=== PATIENT | female | born 1955 | race Caucasian/White ===

== ENCOUNTER 2017-10-08 20:22 | Emergency (ER) | payer SELFPAY ==
[2017-10-08] MEDS ORDERED: MORPHINE 4 MG/ML SYR ONE (21:00)
[2017-10-08] MEDS ORDERED: ONDANSETRON 4 MG/2 ML VIAL ONE (21:00)
[2017-10-08 21:15] LABS: Absolute Monocytes 0.5 K/uL (0.1-1.3); Basophils % 0.6 % (0-1.3); Eosinophils % 2.3 % (0-4.4); Hematocrit 43.1 % (36.0-45.0); Lymphocytes % 26.1 % (15.3-44.8); MCV 86.9 fL (80-100); MPV 8.1 fL (7.6-11.3); Monocytes % 6.9 % (3.3-12.3); RBC Red Blood Cell Count 4.96 M/uL (3.86-4.86)
[2017-10-08 21:18] LABS: Urine Bacteria <20 /HPF (<20); Urine Culture Reflex Order REFLEXED; Urine RBC <5 /HPF (NONE SEEN)
[2017-10-08 21:24] LABS: Albumin 3.6 g/dL (3.4-5.0); Bilirubin Direct 0.1 mg/dL (0-0.2); Bilirubin Total 0.6 mg/dL (0.2-1.0); Potassium 3.4 mmol/L (3.5-5.1)
[2017-10-08 21:25] LABS: Urine Blood TRACE (NEG); Urine Glucose NEGATIVE (NEG); Urine Protein NEGATIVE (NEG); Urine pH 6.5 (5.0-7.0)
--- NOTE | 2017-10-08 22:03 | RAD REPORT ---
EXAM DESCRIPTION: CT - Abdomen Pelvis W Contrast - 10/08/2017 9:36 pm CLINICAL HISTORY: Abdominal pain, epigastric pain COMPARISON: None. TECHNIQUE: Biphasic, helical CT imaging of the abdomen and pelvis was performed following 100 ml non -ionic IV contrast. Oral contrast was given. All CT scans are performed using dose optimization technique as appropriate and may include automated exposure control or mA/KV adjustment according to patient size. FINDINGS: No suspicious findings in the lung bases. The liver, spleen, and pancreas show no suspicious findings. Gallbladder and biliary tree are also wi thout suspicious finding. Symmetric renal function is seen with no hydronephrosis or suspicious renal mass. No pyelonephritis o r acute renal parenchymal process. Urinary bladder is contracted limiting assessment. No significant uterine or ovarian finding. Ott of the distal esophagus are mildly prominent. A mild esophagitis would be possible. CT imaging has limited sensitivity for esophageal findings. No gastric dilatation. Ott of the antrum are mildl y prominent. Again, CT sensitivity is limited. No acute small bowel finding. Moderate sigmoid diverti culosis is present without diverticulitis. Mass assessment is limited. No appendicitis. Liver, spleen and pancreas show no acute findings. Small hepatic cysts are present. No free air, lexus e fluid or inflammatory stranding. No hernia, mass or bulky lymphadenopathy. No adrenal abnormality. No suspicious bony findings. IMPRESSION: Ott of the distal esophagus and ott of the gastric antrum are mildly prominent. CT s ensitivity is limited. A mild antritis or esophagitis would be possible and can be correlated with cl inical findings. GI tract is otherwise without acute finding. No acute finding. Gallbladder and biliary tree within normal limits.
--- NOTE | 2017-10-08 22:17 | ER ---
Nurse's Notes [facility] Name: Chantell Castillo Age: 62 yrs Sex: Female : 1955 Arrival Date: 10/08/2017 Time: 20:23 Bed 23 Private MD: Diagnosis: Esophagitis;Antritis Presentation: 10/08 20:40 Presenting complaint: Patient states: she is having epigastric pain x 3 days she bb started vomiting today and she is nauseated. Transition of care: patient was not received from another setting of care. Onset of symptoms was October 06, 2017. Risk Assessment: Do you want to hurt yourself or someone else? Patient reports no desire to harm self or others. Initial Sepsis Screen: Does the patient meet any 2 criteria? No. Patient's initial sepsis screen is negative. Does the patient have a suspected source of infection? No. Patient's initial sepsis screen is negative. Care prior to arrival: None. 20:40 Method Of Arrival: Ambulatory bb 20:40 Acuity: WES 3 bb Triage Assessment: 21:08 General: Appears in no apparent distress. uncomfortable, well groomed, well developed, kr2 well nourished, Behavior is calm, cooperative, appropriate for age. Pain: Complains of pain in epigastric area, right upper quadrant and left upper quadrant Pain currently is 8 out of 10 on a pain scale. Quality of pain is described as aching, crampy, sharp, Is continuous, Alleviated by nothing. EENT: Oral mucosa is moist. Neuro: Level of Consciousness is awake, alert, obeys commands, Oriented to person, place, time, situation. Cardiovascular: Capillary refill < 3 seconds in bilateral fingers Patient's skin is warm and dry. Respiratory: Airway is patent Respiratory effort is even, unlabored, Respiratory pattern is regular, symmetrical. GI: Abdomen is round non-distended, Reports nausea, vomiting. : Urine is cloudy. Derm: Skin is intact, is healthy with good turgor, Skin is pink, warm \T\ dry. Musculoskeletal: Circulation, motion, and sensation intact. Historical: - Allergies: 20:42 NKDA; bb - Home Meds: 20:42 lisinopril 40 mg Oral tab 1 tab twice a day [Active]; bb - PMHx: 20:47 hypertension; bb - PSHx: 20:47 Tubal ligation; Tonsillectomy; bb - Immunization history:: Adult Immunizations up to date. - Social history:: Smoking status: Patient uses tobacco products, smokes one-half pack cigarettes per day, Patient/guardian denies using alcohol, street drugs. - Ebola Screening: : No symptoms or risks identified at this time. Screenin:08 Abuse screen: Denies threats or abuse. Denies injuries from another. Nutritional kr2 screening: No deficits noted. Tuberculosis screening: No symptoms or risk factors identified. Fall Risk None identified. Assessment: 21:10 General: See triage assessment. kr2 21:59 Reassessment: Patient appears in no apparent distress at this time. Patient and/or kr2 family updated on plan of care and expected duration. Pain level reassessed. Patient is alert, oriented x 3, equal unlabored respirations, skin warm/dry/pink. Patient states symptoms have improved. 22:38 Reassessment: Patient appears in no apparent distress at this time. Patient and/or kr2 family updated on plan of care and expected duration. Pain level reassessed. Patient is alert, oriented x 3, equal unlabored respirations, skin warm/dry/pink. Patient states feeling better. Vital Signs: 20:48 BP 192 / 115; Pulse 75; Resp 18 S; Temp 98.6(O); Pulse Ox 98% on R/A; Weight 83.91 kg bb (R); Height 5 ft. 3 in. (160.02 cm) (R); Pain 8/10; 21:06 BP 177 / 108; Pulse 74; Resp 19; Pulse Ox 97% on R/A; kr2 21:59 BP 176 / 98; Pulse 65; Resp 17; Pulse Ox 97% ; kr2 20:48 Body Mass Index 32.77 (83.91 kg, 160.02 cm) ED Course: 20:23 Patient arrived in ED. ds1 20:29 Daniel Sanon NP is PHCP. pm1 20:29 Goldy Benitez MD is Attending Physician. pm1 20:30 Annetta Starkey, KURT is Primary Nurse. kr2 20:41 Triage completed. bb 20:48 Arm band placed on Patient placed in an exam room, on a stretcher, on pulse oximetry. bb Family accompanied patient. 20:50 Patient has correct armband on for positive identification. Bed in low position. Call kr2 light in reach. Side rails up X 1. Adult w/ patient. Pulse ox on. NIBP on. Door closed. Warm blanket given. Head of bed elevated. 20:50 Inserted saline lock: 20 gauge in right antecubital area, using aseptic technique. kr2 Blood collected. 21:05 Urine collected: clean catch specimen, cloudy. kr2 21:35 CT Abd/Pelvis - W/Contrast: IV contrast only In Process Unspecified. EDMS 22:16 Nicol Solomon MD is Referral Physician. pm1 22:39 No provider procedures requiring assistance completed. IV discontinued, intact, kr2 bleeding controlled, No redness/swelling at site. Pressure dressing applied. Administered Medications: 21:00 Drug: morphine 4 mg Route: IVP; Site: right antecubital; kr2 21:30 Follow up: Response: No adverse reaction; Pain is decreased kr2 21:00 Drug: Zofran 4 mg Route: IVP; Site: right antecubital; kr2 22:36 Follow up: Response: No adverse reaction kr2 22:20 Drug: GI Cocktail without - (Maalox Suspension 30 ml, Lidocaine Liquid 2 % 15 kr2 ml) Route: PO; 22:37 Follow up: Response: No adverse reaction kr2 Outcome: 22:17 Discharge ordered by . pm1 22:39 Discharged to home ambulatory, with family. kr2 22:39 Condition: good 22:39 Discharge instructions given to patient, family, Instructed on discharge instructions, follow up and referral plans. Demonstrated understanding of instructions, follow-up care. 22:39 Patient left the ED. kr2 Addendum: 10/12/2017 16:42 Addendum: Culture Results: Positive urine culture. No further action required. Other: s s No Urinary S/S. Okay per BUSHRA Lieberman. Signatures: Dispatcher [employer] [facility] Jami Reece dsVenus Rdz RN RN Marie Gomez RN RN ss Marinas, Patrick, ESTEFANY LONG DISTANCE OPERATOR pm1 Annetta Starkey RN RN kr2 Corrections: (The following items were deleted from the chart) 10/08 20:41 20:37 Presenting complaint: sofia black
--- NOTE | 2017-10-08 22:17 | EDPHYS ---
Physician Documentation [facility] Name: Chantell Castillo Age: 62 yrs Sex: Female : 1955 Arrival Date: 10/08/2017 Time: 20:23 Bed 23 Private MD: ED Physician Goldy Benitez HPI: 10/08 21:27 This 62 yrs old Female presents to ER via Ambulatory with complaints of Upper pm1 Abd Pain. 21:27 The patient presents with abdominal pain in the left upper quadrant. Onset: The pm1 symptoms/episode began/occurred 3 day(s) ago. The symptoms do not radiate. Associated signs and symptoms: Pertinent positives: nausea and vomiting, Pertinent negatives: chest pain, diarrhea, dysuria, fever, shortness of breath. The symptoms are described as achy, constant. Modifying factors: The symptoms are alleviated by nothing, the symptoms are aggravated by nothing. Severity of pain: in the emergency department the pain is actually worse. The patient has experienced similar episodes in the past, a few times. The patient has not recently seen a physician, and does not have an established primary care provider. Historical: - Allergies: 20:42 NKDA; bb - Home Meds: 20:42 lisinopril 40 mg Oral tab 1 tab twice a day [Active]; bb - PMHx: 20:47 hypertension; bb - PSHx: 20:47 Tubal ligation; Tonsillectomy; bb - Immunization history:: Adult Immunizations up to date. - Social history:: Smoking status: Patient uses tobacco products, smokes one-half pack cigarettes per day, Patient/guardian denies using alcohol, street drugs. - Ebola Screening: : No symptoms or risks identified at this time. ROS: 21:57 Constitutional: Negative for fever, chills, and weight loss, Eyes: Negative for injury, pm1 pain, redness, and discharge, ENT: Negative for injury, pain, and discharge, Neck: Negative for injury, pain, and swelling, Cardiovascular: Negative for chest pain, palpitations, and edema, Respiratory: Negative for shortness of breath, cough, wheezing, and pleuritic chest pain. 21:57 Back: Negative for injury and pain, : Negative for injury, bleeding, discharge, and swelling, MS/Extremity: Negative for injury and deformity, Skin: Negative for injury, rash, and discoloration, Neuro: Negative for headache, weakness, numbness, tingling, and seizure. 21:57 Abdomen/GI: Positive for abdominal pain, nausea and vomiting, Negative for diarrhea, constipation. Exam: 21:57 Constitutional: This is a well developed, well nourished patient who is awake, alert, pm1 and in no acute distress. Head/Face: Normocephalic, atraumatic. Eyes: Pupils equal round and reactive to light, extra-ocular motions intact. Lids and lashes normal. Conjunctiva and sclera are non-icteric and not injected. Cornea within normal limits. Periorbital areas with no swelling, redness, or edema. ENT: Nares patent. No nasal discharge, no septal abnormalities noted. Tympanic membranes are normal and external auditory canals are clear. Oropharynx with no redness, swelling, or masses, exudates, or evidence of obstruction, uvula midline. Mucous membranes moist. Neck: Trachea midline, no thyromegaly or masses palpated, and no cervical lymphadenopathy. Supple, full range of motion without nuchal rigidity, or vertebral point tenderness. No Meningismus. Chest/axilla: Normal chest wall appearance and motion. Nontender with no deformity. No lesions are appreciated. Cardiovascular: Regular rate and rhythm with a normal S1 and S2. No gallops, murmurs, or rubs. Normal PMI, no JVD. No pulse deficits. Respiratory: Lungs have equal breath sounds bilaterally, clear to auscultation and percussion. No rales, rhonchi or wheezes noted. No increased work of breathing, no retractions or nasal flaring. 21:57 Back: No spinal tenderness. No costovertebral tenderness. Full range of motion. Skin: Warm, dry with normal turgor. Normal color with no rashes, no lesions, and no evidence of cellulitis. MS/ Extremity: Pulses equal, no cyanosis. Neurovascular intact. Full, normal range of motion. 21:57 Abdomen/GI: Inspection: abdomen appears normal, Bowel sounds: normal, Palpation: soft, mild abdominal tenderness, in the epigastric area, mass, is not appreciated, rebound tenderness, is not appreciated. 21:57 Neuro: Orientation: is normal, Motor: is normal, moves all fours. Vital Signs: 20:48 BP 192 / 115; Pulse 75; Resp 18 S; Temp 98.6(O); Pulse Ox 98% on R/A; Weight 83.91 kg bb (R); Height 5 ft. 3 in. (160.02 cm) (R); Pain 8/10; 21:06 BP 177 / 108; Pulse 74; Resp 19; Pulse Ox 97% on R/A; kr2 21:59 BP 176 / 98; Pulse 65; Resp 17; Pulse Ox 97% ; kr2 20:48 Body Mass Index 32.77 (83.91 kg, 160.02 cm) bb MDM: 20:31 Patient medically screened. pm1 22:14 Data reviewed: vital signs. Data interpreted: Pulse oximetry: on room air is 97 %. pm1 Interpretation: normal. Counseling: I had a detailed discussion with the patient and/or guardian regarding: the historical points, exam findings, and any diagnostic results supporting the discharge/admit diagnosis, lab results, radiology results, the need for outpatient follow up, for definitive care, a economist research assistant, to return to the emergency department if symptoms worsen or persist or if there are any questions or concerns that arise at home. 10/08 20:39 Order name: Basic Metabolic Panel; Complete Time: 21:48 pm1 10/08 20:39 Order name: CBC with Diff; Complete Time: 21:21 pm1 10/08 20:39 Order name: Creatinine for Radiology; Complete Time: 21:48 pm1 10/08 20:39 Order name: Hepatic Function; Complete Time: 21:48 pm1 10/08 20:39 Order name: Lipase; Complete Time: 21:48 pm1 10/08 20:39 Order name: Urine Microscopic Only; Complete Time: 21:21 pm1 10/08 20:39 Order name: Urine Test (obtain specimen); Complete Time: 21:06 pm1 10/08 20:39 Order name: CT Abd/Pelvis - W/Contrast: IV contrast only; Complete Time: 22:04 pm1 10/08 21:19 Order name: Urine Culture [facility] 10/08 21:19 Order name: Urine Dipstick--Ancillary (enter results); Complete Time: 21:48 mw2 10/08 21:19 Order name: Urine --Ancillary (enter results); Complete Time: 21:48 2 10/08 20:39 Order name: IV Saline Lock; Complete Time: 21:06 pm1 10/08 20:39 Order name: Labs collected and sent; Complete Time: 21:06 pm1 10/08 20:39 Order name: Urine Dipstick-Ancillary (obtain specimen); Complete Time: 21:06 pm1 08 20:39 Order name: NPO; Complete Time: 20:43 pm1 Administered Medications: 21:00 Drug: morphine 4 mg Route: IVP; Site: right antecubital; kr2 21:30 Follow up: Response: No adverse reaction; Pain is decreased kr2 21:00 Drug: Zofran 4 mg Route: IVP; Site: right antecubital; kr2 22:36 Follow up: Response: No adverse reaction kr2 22:20 Drug: GI Cocktail without - (Maalox Suspension 30 ml, Lidocaine Liquid 2 % 15 kr2 ml) Route: PO; 22:37 Follow up: Response: No adverse reaction kr2 Disposition: 10/09 02:10 Co-signature as Attending Physician, Goldy Benitez MD. rn Disposition: 10/08/17 22:17 Discharged to Home. Impression: Esophagitis, Antritis. - Condition is Stable. - Discharge Instructions: Esophagitis. - Medication Reconciliation Form, Thank You Letter, Antibiotic Education, Prescription Opioid Use form. - Follow up: Emergency Department; When: As needed; Reason: Worsening of condition. Follow up: Nicol Solomon MD; When: 2 - 3 days; Reason: Recheck today's complaints, Continuance of care, Re-evaluation by your physician. - Problem is new. - Symptoms have improved. Signatures: Dispatcher [employer] EDMS Venus Shell RN RN bb Nieto, Roman, MD MD rn Marinas, Patrick, NP [employer]IL HAND[employer] pm1 Annetta Starkey RN RN kr2 Corrections: (The following items were deleted from the chart) 10/08 22:39 22:17 10/08/2017 22:17 Discharged to Home. Impression: Esophagitis; Antritis. Condition kr2 is Stable. Forms are Medication Reconciliation Form, Thank You Letter, Antibiotic Education, Prescription Opioid Use. Follow up: Emergency Department; When: As needed; Reason: Worsening of condition. Follow up: Nicol Solomon; When: 2 - 3 days; Reason: Recheck today's complaints, Continuance of care, Re-evaluation by your physician. Problem is new. Symptoms have improved. pm1
[2017-10-08] MEDS ORDERED: MAGNE/ALUM HYDROXD 30 ML UCUP ONE (22:32)
[2017-10-08] MEDS ORDERED: LIDOCAINE VISCOUS 2% SOLN 15 ML UDC ONE (22:32)
[2017-10-08 22:46] VITALS: TEMP 98.6
[2017-10-08 22:47] VITALS: O2SAT 97
[2017-10-08 22:48] VITALS: BP 176/98
== END 2017-10-08 22:39 | disposition home or self-care (01) ==
LOC: ER 20:22
DX: K20.9 Esophagitis, unspecified (principal); K29.60 Other gastritis without bleeding; I10 Essential (primary) hypertension; F17.210 Nicotine dependence, cigarettes, uncomplicated
CPT/HCPCS: 36415; 74177; 80048; 80076; 81003; 81015; 81025; 83690; 85025; 87077; 87086; 87088; 87186; 96374; 96375; 99284; J2405; Q9967

== ENCOUNTER 2019-11-09 16:10 | Emergency (ER) | payer SELFPAY ==
[2019-11-09] MEDS ORDERED: MORPHINE 2 MG/ML SYR ONE (17:04)
[2019-11-09] MEDS ORDERED: FAMOTIDINE 20 MG/2 ML VIAL IV ONE (17:04)
[2019-11-09] MEDS ORDERED: NA CHLORIDE 0.9% 500 ML ONE (17:04)
[2019-11-09] MEDS ORDERED: ONDANSETRON 4 MG/2 ML VIAL ONE (17:04)
[2019-11-09 17:11] LABS: Absolute Lymphocytes (CBC) 1.7 K/uL (0.7-4.9); Basophils % 0.8 % (0-1.3); Lymphocytes % 19.2 % (15.3-44.8); RBC Red Blood Cell Count 5.22 M/uL (3.86-4.86)
[2019-11-09 17:33] LABS: Albumin 3.4 g/dL (3.4-5.0); Bilirubin Direct 0.1 mg/dL (0-0.2); Bilirubin Total 0.4 mg/dL (0.2-1.0); Potassium 3.2 mmol/L (3.5-5.1); Protein, Total 6.9 g/dL (6.4-8.2)
--- NOTE | 2019-11-09 18:25 | RAD REPORT ---
EXAM DESCRIPTION: CT - Abdomen Pelvis W Contrast - 11/09/2019 6:10 pm CLINICAL HISTORY: upper abdomen pain COMPARISON: Abdomen Pelvis W Contrast dated 10/08/2017; Abdomen Exam Limited dated 11/09/2019 TECHNIQUE: Biphasic, helical CT imaging of the abdomen and pelvis was performed following 100 ml non -ionic IV contrast. No oral contrast administered. All CT scans are performed using dose optimization technique as appropriate and may include automated exposure control or mA/KV adjustment according to patient size. FINDINGS: No suspicious findings in the lung bases. The liver, spleen, and pancreas show no suspicious findings. Multiple small cysts are present in the liver similar to comparison. No gallbladder or biliary tree abnormality seen. Gallstones can be occul t. Symmetric renal function is seen with no hydronephrosis or suspicious renal mass. No pyelonephritis o r acute parenchymal process. No bladder abnormalities. No adrenal abnormalities. Uterus and ovaries s how no suspicious findings. Ott of the distal esophagus and gastric antrum are less prominent than seen on the 2018 study. No f inding that would suggest the developing mass at this site. No lymphadenopathy in this region. Remain connie the stomach shows no suspicious finding. No small bowel abnormality. Moderately large stool volum e present scattered in the colon. Patient has very pronounced diverticulosis in the sigmoid colon. No acute diverticulitis. Mucosal level inflammatory changes can be occult on CT imaging. No free air, free fluid or inflammatory stranding. No hernia, mass or bulky lymphadenopathy. Disc and bony degenerative changes are present. No acute lumbar or lower thoracic abnormality. No acu te vascular finding. IMPRESSION: Contrast enhanced CT abdomen and pelvis showing no emergent finding. Patient has prominent diverticulosis of the sigmoid colon. No diverticulitis seen. Mucosal level infl ammatory changes can be occult on CT imaging. The ott of the distal esophagus and gastric antrum at the GE junction do not appear as prominent as seen in 2018. No findings suggesting a developing mass at this location.
[2019-11-09] MEDS ORDERED: HYDRALAZINE HCL 20 MG/ML VIAL ONE (18:37)
[2019-11-09] MEDS ORDERED: lisinopriL 20 MG TAB ONE (18:37)
--- NOTE | 2019-11-09 19:19 | ER ---
Nurse's Notes [facility] Name: Chantell Castillo Age: 64 yrs Sex: Female : 1955 Arrival Date: 11/09/2019 Time: 16:13 Bed 19 Private MD: Diagnosis: Epigastric pain;Nausea;Hypertensive heart disease Presentation: 11/08 16:18 Chief complaint: Patient states: Upper abdominal pain with nausea since last night. ll1 Pain radiates through to back. No fever. Coronavirus screen: Client denies travel out of the [place] in the last 14 days. At this time, the client does not indicate any symptoms associated with coronavirus-19. Ebola Screen: Patient denies travel to an Ebola-affected area in the 21 days before illness onset. Initial Sepsis Screen: Does the patient meet any 2 criteria? No. Patient's initial sepsis screen is negative. Risk Assessment: Do you want to hurt yourself or someone else? Patient reports no desire to harm self or others. Onset of symptoms was November 08, 2019. 16:18 Method Of Arrival: Ambulatory ll1 16:18 Acuity: WES 2 ll1 Triage Assessment: 16:25 General: Appears in no apparent distress. uncomfortable, obese, Behavior is bp cooperative, appropriate for age, anxious. Pain: Complains of pain in abdomen. EENT: No deficits noted. Neuro: No deficits noted. Cardiovascular: No deficits noted. Respiratory: No deficits noted. GI: Abdomen is non-distended, Reports upper abdominal pain. : No signs and/or symptoms were reported regarding the genitourinary system. Derm: No deficits noted. Musculoskeletal: No deficits noted. Historical: - Allergies: 16:18 NKDA; ll1 - PMHx: 16:18 Hypertension; ll1 - PSHx: 16:18 Tubal ligation; Tonsillectomy; ll1 - Immunization history:: Flu vaccine is up to date. - Social history:: Smoking status: Patient reports the use of cigarette tobacco products, smokes one-half pack cigarettes per day, Patient/guardian denies using alcohol, street drugs. Screenin:07 Abuse screen: Denies threats or abuse. Denies injuries from another. Nutritional bp screening: No deficits noted. Tuberculosis screening: No symptoms or risk factors identified. Fall Risk None identified. Assessment: 16:30 General: SEE TRIAGE NOTE. bp 17:42 Reassessment: U/S AT B/S. bp 18:08 Reassessment: PT TO CT. PT REMAINS GROSSLY HYPERTENSIVE, PROVIDER AWARE. bp 18:30 Reassessment: PT RETURNED FROM CT. bp 19:40 Reassessment: Patient appears in no apparent distress at this time. Patient is alert, rr5 oriented x 3, equal unlabored respirations, skin warm/dry/pink. discharge instruction given and explained without complaints made. Vital Signs: 16:18 BP 206 / 137; Pulse 82; Resp 18; Temp 98.1; Pulse Ox 100% ; Pain 8/10; ll1 17:00 BP 220 / 110; Pulse 78; Resp 16; Pulse Ox 100% ; bp 17:42 BP 195 / 116; Pulse 71; Resp 17; Pulse Ox 100% ; bp 18:00 BP 231 / 118; Pulse 69; Resp 17; Pulse Ox 100% ; bp 18:30 BP 162 / 88; Pulse 72; Resp 16; Pulse Ox 100% ; bp 19:38 BP 162 / 85; Pulse 70; Resp 17; Pulse Ox 99% ; rr5 ED Course: 16:13 Patient arrived in ED. ds1 16:18 Arm band placed on. ll1 16:20 Triage completed. ll1 16:24 Eddie Mtz, KURT is Primary Nurse. bp 16:25 Wilfrido Crocker PA is PHCP. cp 16:25 Giovanni Gallegos MD is Attending Physician. cp 17:00 Inserted saline lock: 20 gauge in right forearm, using aseptic technique. Blood bp collected. 17:07 Patient has correct armband on for positive identification. Bed in low position. Call bp light in reach. Side rails up X2. 18:10 CT Abd/Pelvis - IV Contrast Only In Process Unspecified. EDMS 19:04 US Abdomen Limited: RUQ/epigastric area In Process Unspecified. EDMS 19:38 No provider procedures requiring assistance completed. IV discontinued, intact, rr5 bleeding controlled, No redness/swelling at site. Pressure dressing applied. Administered Medications: 17:00 Drug: Zofran (Ondansetron) 4 mg Route: IVP; Site: right forearm; bp 18:33 Follow up: Response: No adverse reaction bp 17:00 Drug: Pepcid 20 mg Route: IVP; Site: right forearm; bp 18:33 Follow up: Response: No adverse reaction bp 17:00 Drug: morphine 2 mg Route: IVP; Site: right forearm; bp 18:33 Follow up: Response: Pain is decreased bp 17:00 Drug: NS 0.9% 500 ml Route: IV; Rate: bolus; Site: right forearm; bp 17:00 Drug: NS 0.9% 500 ml Route: IV; Rate: 100 ml/hr; Site: right forearm; bp 18:30 Drug: Lisinopril 20 mg Route: PO; bp 18:33 Follow up: Response: No adverse reaction bp 18:30 Drug: hydrALAZINE 10 mg Route: IV; Rate: calculated rate; Site: right forearm; bp 19:39 Follow up: Response: Blood pressure is lowered; IV Status: Completed infusion rr5 19:20 Drug: Potassium Effervescent Tablet 50 mEq Route: PO; rr5 19:39 Follow up: Response: No adverse reaction rr5 19:20 Drug: Tylenol 1000 mg Route: PO; rr5 19:39 Follow up: Response: No adverse reaction rr5 Outcome: 19:18 Discharge ordered by . cp 19:38 Discharged to home ambulatory. rr5 19:38 Condition: stable 19:38 Discharge instructions given to patient, Instructed on discharge instructions, follow up and referral plans. medication usage, Demonstrated understanding of instructions, follow-up care, medications, Prescriptions given X 2. 19:41 Patient left the ED. rr5 Signatures: Dispatcher [employer] [facility] ReeceJami dsWilfrido Crouch PA PA cp Eddie Mtz RN RN bp Ashu Spangler RN RN rr5 Ruben Stallworth RN RN ll1 Corrections: (The following items were deleted from the chart) 16:22 16:18 Acuity: WES 3 ll1 ll1
--- NOTE | 2019-11-09 19:19 | EDPHYS ---
Physician Documentation [facility] Name: Chantell Castillo Age: 64 yrs Sex: Female : 1955 Arrival Date: 11/09/2019 Time: 16:13 Bed 19 Private MD: ED Physician Giovanni Gallegos HPI: 11/08 16:35 This 64 yrs old Female presents to ER via Ambulatory with complaints of Upper cp Abd Pain. 16:35 The patient presents with abdominal pain in the epigastric area. cp 16:35 Onset: The symptoms/episode began/occurred last night. The symptoms radiate to cp Associated signs and symptoms: Pertinent positives: nausea, Pertinent negatives: chest pain, constipation, diarrhea, dysuria, fever, vomiting. The symptoms are described as constricting. Modifying factors: The symptoms are alleviated by nothing. Severity of pain: in the emergency department the pain is unchanged despite home interventions. Historical: - Allergies: 16:18 NKDA; ll1 - PMHx: 16:18 Hypertension; ll1 - PSHx: 16:18 Tubal ligation; Tonsillectomy; ll1 - Immunization history:: Flu vaccine is up to date. - Social history:: Smoking status: Patient reports the use of cigarette tobacco products, smokes one-half pack cigarettes per day, Patient/guardian denies using alcohol, street drugs. ROS: 16:40 Constitutional: Negative for body aches, chills, fever, poor PO intake. cp 16:40 Eyes: Negative for injury, pain, redness, and discharge. cp 16:40 ENT: Negative for ear pain, sore throat, difficulty swallowing, difficulty handling secretions. 16:40 Cardiovascular: Negative for chest pain. 16:40 Respiratory: Negative for cough, shortness of breath, wheezing. 16:40 Abdomen/GI: Positive for abdominal pain, nausea, Negative for vomiting, diarrhea, constipation. 16:40 Back: Positive for radiated pain. 16:40 : Negative for urinary symptoms. 16:40 Neuro: Negative for altered mental status, headache, weakness. 16:40 All other systems are negative. Exam: 16:45 Constitutional: The patient appears in no acute distress, alert, awake, cp non-diaphoretic, non-toxic, well developed, well nourished. 16:45 Head/Face: Normocephalic, atraumatic. cp 16:45 Eyes: Periorbital structures: appear normal, Conjunctiva: normal, no exudate, no injection, Lids and lashes: appear normal, bilaterally. 16:45 ENT: External ear(s): are unremarkable, Nose: is normal, Posterior pharynx: Airway: no evidence of obstruction, patent. 16:45 Chest/axilla: Inspection: normal, Palpation: is normal, no crepitus, no tenderness. 16:45 Cardiovascular: Rate: normal, Rhythm: regular. 16:45 Respiratory: the patient does not display signs of respiratory distress, Respirations: normal, no use of accessory muscles, no retractions, labored breathing, is not present, Breath sounds: are clear throughout, no decreased breath sounds, no stridor, no wheezing. 16:45 Abdomen/GI: Inspection: abdomen appears normal, Bowel sounds: active, all quadrants, Palpation: soft, in all quadrants, moderate abdominal tenderness, in the epigastric area, rebound tenderness, is not appreciated, involuntary guarding, is not appreciated. 16:45 Back: pain, that is mild, of the left subscapular area, right subscapular area and mid back area, ROM is normal. 16:45 Skin: no rash present. Vital Signs: 16:18 BP 206 / 137; Pulse 82; Resp 18; Temp 98.1; Pulse Ox 100% ; Pain 8/10; ll1 17:00 BP 220 / 110; Pulse 78; Resp 16; Pulse Ox 100% ; bp 17:42 BP 195 / 116; Pulse 71; Resp 17; Pulse Ox 100% ; bp 18:00 BP 231 / 118; Pulse 69; Resp 17; Pulse Ox 100% ; bp 18:30 BP 162 / 88; Pulse 72; Resp 16; Pulse Ox 100% ; bp 19:38 BP 162 / 85; Pulse 70; Resp 17; Pulse Ox 99% ; rr5 MDM: 16:27 Patient medically screened. cp 19:14 ED course: tech reports no acute findings noted on RUQ ultrasound. 11/08 16:32 Order name: Basic Metabolic Panel; Complete Time: 17:53 11/08 17:53 Interpretation: Normal except: K 3.2; CL 108; GFR 83. 11/08 16:32 Order name: CBC with Diff; Complete Time: 17:53 11/08 17:53 Interpretation: Normal except: RBC 5.22; HGB 15.4. cp 11/08 16:32 Order name: Hepatic Function; Complete Time: 17:53 cp 11/08 16:32 Order name: Lipase; Complete Time: 17:53 cp 11/08 16:32 Order name: US Abdomen Limited: RUQ/epigastric area cp 11/08 17:54 Order name: CT Abd/Pelvis - IV Contrast Only; Complete Time: 18:37 cp 11/08 16:32 Order name: IV Saline Lock; Complete Time: 17:06 cp 11/08 16:32 Order name: Labs collected and sent; Complete Time: 17:06 cp 11/08 16:32 Order name: NPO; Complete Time: 17:06 cp Administered Medications: 17:00 Drug: Zofran (Ondansetron) 4 mg Route: IVP; Site: right forearm; bp 18:33 Follow up: Response: No adverse reaction bp 17:00 Drug: Pepcid 20 mg Route: IVP; Site: right forearm; bp 18:33 Follow up: Response: No adverse reaction bp 17:00 Drug: morphine 2 mg Route: IVP; Site: right forearm; bp 18:33 Follow up: Response: Pain is decreased bp 17:00 Drug: NS 0.9% 500 ml Route: IV; Rate: bolus; Site: right forearm; bp 17:00 Drug: NS 0.9% 500 ml Route: IV; Rate: 100 ml/hr; Site: right forearm; bp 18:30 Drug: Lisinopril 20 mg Route: PO; bp 18:33 Follow up: Response: No adverse reaction bp 18:30 Drug: hydrALAZINE 10 mg Route: IV; Rate: calculated rate; Site: right forearm; bp 19:39 Follow up: Response: Blood pressure is lowered; IV Status: Completed infusion rr5 19:20 Drug: Potassium Effervescent Tablet 50 mEq Route: PO; rr5 19:39 Follow up: Response: No adverse reaction rr5 19:20 Drug: Tylenol 1000 mg Route: PO; rr5 19:39 Follow up: Response: No adverse reaction rr5 Disposition: 11/09 14:26 Co-signature as Attending Physician, Giovanni Gallegos MD I agree with the assessment and kdr plan of care. Disposition: 09/03/20 19:18 Discharged to Home. Impression: Epigastric pain, Nausea, Hypertensive heart disease. - Condition is Stable. - Discharge Instructions: Gastritis, Adult, Hypertension, Managing Your Hypertension. - Prescriptions for Protonix 40 mg Oral Tablet - take 1 tablet by ORAL route once daily; 30 tablet. Zofran 4 mg Oral Tablet - take 1 tablet by ORAL route every 12 hours As needed; 20 tablet. Lisinopril 20 mg Oral Tablet - take 1 tablet by ORAL route once daily; 30 tablet. - Medication Reconciliation Form, Thank You Letter, Antibiotic Education, Prescription Opioid Use form. - Follow up: Private Physician; When: 2 - 3 days; Reason: Recheck today's complaints. - Problem is new. - Symptoms have improved. Signatures: Dispatcher [employer] EDMS Giovanni Gallegos MD MD [facility] Wilfrido Crocker PA PA cp Peltier, Brian, RN RN bp Ashu Spangler RN RN rr5 Ruben Stallworth RN RN ll1 Corrections: (The following items were deleted from the chart) 11/08 19:41 19:18 11/09/2019 19:18 Discharged to Home. Impression: Epigastric pain; Nausea; rr5 Hypertensive heart disease. Condition is Stable. Forms are Medication Reconciliation Form, Thank You Letter, Antibiotic Education, Prescription Opioid Use. Follow up: Private Physician; When: 2 - 3 days; Reason: Recheck today's complaints. Problem is new. Symptoms have improved. cp
[2019-11-09] MEDS ORDERED: ACETAMINOPHEN 500 MG TAB ONE (19:41)
[2019-11-09] MEDS ORDERED: POTASSIUM 25 MEQ EFFERV TAB ONE (19:41)
--- NOTE | 2019-11-09 20:44 | RAD REPORT ---
EXAM DESCRIPTION: US - Abdomen Exam Limited - 11/09/2019 7:04 pm CLINICAL HISTORY: upper abdomen pain COMPARISON: Abdomen Pelvis W Contrast dated 10/08/2017 FINDINGS: No gallstones, sludge or other abnormalities within the gallbladder lumen. There is no wal l thickening or pericholecystic fluid. No common duct stone or biliary tree dilatation identified. IMPRESSION: Normal gallbladder and biliary tree ultrasound.
[2019-11-11 10:14] VITALS: TEMP 98.1
[2019-11-11 10:20] VITALS: BP 162/85; O2SAT 99
== END 2019-11-09 19:41 | disposition home or self-care (01) ==
LOC: ER 16:10
DX: R11.0 Nausea (principal); I11.9 Hypertensive heart disease without heart failure; I10 Essential (primary) hypertension; F17.210 Nicotine dependence, cigarettes, uncomplicated
CPT/HCPCS: 36415; 74177; 76705; 80048; 80076; 83690; 85025; 96365; 96375; 99284; J0360; J2270; J2405; J7040; Q9967

== ENCOUNTER 2020-04-23 19:14 | Emergency (ER) | payer SELFPAY ==
[2020-04-23 19:56] LABS: Absolute Lymphocytes (CBC) 2.2 K/uL (0.7-4.9); Basophils % 0.6 % (0-1.3); Hematocrit 41.1 % (36.0-45.0); Lymphocytes % 21.7 % (15.3-44.8); MPV 8.3 fL (7.6-11.3); RBC Red Blood Cell Count 4.84 M/uL (3.86-4.86)
[2020-04-23 19:57] LABS: Protime INR 1.03
[2020-04-23] MEDS ORDERED: LIDOCAINE VISCOUS 2% SOLN 15 ML UDC ONE (19:59)
[2020-04-23] MEDS ORDERED: ONDANSETRON 4 MG/2 ML VIAL ONE (19:59)
[2020-04-23] MEDS ORDERED: MAGNES/ALUMIN/SIMET 30ML UCUP ONE (19:59)
[2020-04-23] MEDS ORDERED: MORPHINE 4 MG/ML SYR ONE ×2 (19:59→21:18)
[2020-04-23 20:19] LABS: ALT/SGPT 17 U/L (12-78); AST/SGOT 14 U/L (15-37); Albumin 3.4 g/dL (3.4-5.0); Alkaline Phosphatase 65 U/L (45-117); BUN Blood Urea Nitrogen 13 mg/dL (7-18); Bicarbonate 29 mmol/L (21-32); Bilirubin Direct 0.1 mg/dL (0-0.2); Bilirubin Total 0.4 mg/dL (0.2-1.0); Glucose Level 121 mg/dL (74-106); Lipase 142 U/L (73-393); Magnesium 2.2 mg/dL (1.8-2.4); NT PRO-BNP 653 pg/mL (<125); Protein, Total 7.1 g/dL (6.4-8.2); Sodium Level 143 mmol/L (136-145); Troponin (Emerg Dept Use Only) < 0.02 ng/mL (0.0-0.045)
--- NOTE | 2020-04-23 21:08 | EDPHYS ---
Physician Documentation [facility] Name: Chantell Castillo Age: 65 yrs Sex: Female : 1955 Arrival Date: 04/23/2020 Time: 19:18 Bed 8 Private MD: ED Physician Duncan Scott HPI: 04/23 19:40 This 65 yrs old Female presents to ER via EMS with complaints of Chest Pain > rn 31 y/o. 19:40 The patient or guardian reports chest pain that is located primarily in the substernal rn area. Onset: just prior to arrival. The pain does not radiate. Associated signs and symptoms: Pertinent positives: diaphoresis, Pertinent negatives: abdominal pain, lower extremity swelling, lightheadedness, palpitations, shortness of breath, syncope, vomiting. The chest pain is described as sharp. Duration: The patient or guardian reports a single episode, that is still ongoing. Modifying factors: The symptoms are alleviated by nothing. the symptoms are aggravated by nothing. Severity of pain: At its worst the pain was moderate in the emergency department the pain is unchanged. The patient has experienced a previous episode. Reports substernal chest pain, no radiation, assoc with diaphoresis, minimal improvement with aspirin and nitro, now has headache. Reports at [facility] when began. Also hx of GERD. Denies eating or ETOH prior to episode. Now slowly improving but not gone. Denies abd pain/nausea/vomiting. . Historical: - Allergies: 19:21 NKDA; em - PMHx: 19:21 Hypertension; em - PSHx: 19:21 Tubal ligation; Tonsillectomy; em - Immunization history:: Adult Immunizations up to date. - Social history:: Smoking status: Patient reports the use of cigarette tobacco products, smokes one-half pack cigarettes per day. - Family history:: not pertinent. - Hospitalizations: : No recent hospitalization is reported. ROS: 19:40 Constitutional: Negative for fever, chills, and weight loss, Eyes: Negative for injury, rn pain, redness, and discharge, Neck: Negative for injury, pain, and swelling, Cardiovascular: Negative for palpitations, and edema Respiratory: Negative for shortness of breath, wheezing, and pleuritic chest pain, Abdomen/GI: Negative for abdominal pain, nausea, vomiting, diarrhea, and constipation, Back: Negative for injury and pain, MS/Extremity: Negative for injury and deformity, Skin: Negative for injury, rash, and discoloration, Neuro: Negative for headache, weakness, numbness, tingling, and seizure. Exam: 19:40 Constitutional: This is a well developed, well nourished patient who is awake, alert, rn and in no acute distress. Head/Face: Normocephalic, atraumatic. Cardiovascular: Regular rate and rhythm. No pulse deficits. Respiratory: No increased work of breathing, no retractions or nasal flaring. Abdomen/GI: soft, non-tender Skin: Warm, dry MS/ Extremity: Pulses equal, no cyanosis. Neurovascular intact. Full, normal range of motion. Equal circumference. Neuro: Awake and alert, GCS 15, oriented to person, place, time, and situation. Cranial nerves II-XII grossly intact. Motor strength 5/5 in all extremities. Sensory grossly intact. Cerebellar exam normal. Normal gait. 20:10 ECG was reviewed by the Attending Physician. rn Vital Signs: 19:18 Pulse 62; Resp 18; Temp 97.6; Pulse Ox 98% on R/A; Weight 78.02 kg; Height 5 ft. 2 in. em (157.48 cm); Pain 9/10; 20:00 BP 151 / 99; Pulse 61; Resp 20; Pulse Ox 96% ; rr5 20:50 BP 153 / 95; Pulse 69; Resp 17; Pulse Ox 99% ; rr5 22:19 BP 165 / 88; Pulse 60; Resp 18; Pulse Ox 99% ; ea 22:54 BP 144 / 79; Pulse 61; Resp 16; Pulse Ox 97% ; ea 23:33 BP 137 / 87; Pulse 57; Resp 17; Pulse Ox 97% on 2 lpm NC; ea 04/24 00:55 BP 125 / 68; Pulse 62; Resp 16; Pulse Ox 98% 2 lpm ; ea 01:59 BP 106 / 65; Pulse 61; Resp 18; Pulse Ox 98% ; ea 03:22 BP 130 / 63; Pulse 65; Resp 16; Pulse Ox 97% on 2 lpm NC; ea 04:30 BP 116 / 81; Pulse 64; Resp 18; Temp 97.8; Pulse Ox 97% on R/A; ea 05:43 BP 125 / 65; Pulse 71; Resp 16; Pulse Ox 97% ; ea 07:30 BP 119 / 69; Pulse 67; Resp 16; Pulse Ox 97% on R/A; hb 08:12 BP 114 / 74; Pulse 60; Resp 15; Pulse Ox 100% on R/A; Pain 5/10; hb 09:00 BP 122 / 70; Pulse 55; Resp 14; Pulse Ox 96% on R/A; hb 09:30 BP 127 / 72; Pulse 56; Resp 15; Pulse Ox 97% on R/A; hb 04/23 19:18 Body Mass Index 31.46 (78.02 kg, 157.48 cm) em MDM: 04/23 19:34 Patient medically screened. rn 21:00 ED course: GI cocktail without relief or change, ordered CT PE given still having sharp rn pain and now reports worse with deep breath at times. . 21:06 Differential diagnosis: acute myocardial infarction, acute pericarditis, coronary rn artery disease chest wall pain, costochondritis, esophagitis, gastritis, gastroesophageal reflux disease (GERD), pericarditis, pleurisy, pneumonia, pneumothorax, pulmonary embolus, stable angina, unstable angina. The patient was not given aspirin in the Emergency Department. Administered by EMS. Data reviewed: vital signs, nurses notes, lab test result(s), EKG, radiologic studies, plain films, and as a result, I will admit patient. Counseling: I had a detailed discussion with the patient and/or guardian regarding: the historical points, exam findings, and any diagnostic results supporting the discharge/admit diagnosis, lab results, radiology results, the need for further work-up and treatment in the hospital. Admission orders: after a detailed discussion of the patient's condition and case, the admit orders are written by me. 22:02 ED course: Dr. Fernandez called, CT chest shows ascending dissection with aneurysm, and rn small hemopericardium. Starting labetalol drip after IV push. . ED course: . 22:23 ED course: Initiated transfer immediately upon CT chest result, awaiting call back.. rn 22:41 ED course: [facility] declines due to capacity, [facility] due to capacity, on rn phone with [facility] and [facility], having difficulty getting through. . 22:51 ED course: [facility] at capacity. rn 22:51 ED course: BP improving on labetalol, currently 144/79, HR 60. rn 22:55 ED course: [facility] at surgical diversion.. rn 23:19 ED course: [facility] declined transfer due to capacity. Last hospital system [facility] rn [facility]. Waiting on [facility] call back.. 23:24 ED course: [facility] at capacity. rn 23:24 ED course: contacted [facility]. rn 23:35 ED course: NO hospitals available in [place] area, contacted [facility] to see if flying, rn state their aircraft are grounded due to weather. Contacting administration to see if can help with inter-hospital placement. . 04/24 00:21 ED course: Labetalol infusion ended, very little labetalol in hospital, will have to rn switch to cardene. . 00:22 ED course: Contacted Dr. Elkins for administrative help, he contacted Dr. Arevalo at [facility], who is trying to see what they can do for patient. . 01:30 ED course: Pt doing well, BP 105/59, HR 59, still waiting on word back from [facility]. . rn 02:13 ED course: Updated daughter on plan and care up to this point, is aware of difficulty rn transferring. . 02:25 ED course: Pt sleeping, still no acceptance anywhere, continuing to call hospitals rn again.. 03:03 ED course: Still no call back, vitals stable.. rn 04:28 ED course: Spoke with Dr. Lau with [facility] CV surgery, is trying on his end rn to get patient transferred, last he spoke with transfer center they told him that they are at internal disaster, but is going to continue to try and make transfer happen, especially given unable to transfer elsewhere. . 07:12 Transition of care: After a detail discussion of the patient's case, care is rn transferred to Duncan Scott MD. 04/23 19:40 Order name: Basic Metabolic Panel rn 04/23 19:40 Order name: CBC with Diff rn 04/23 19:40 Order name: LFT's rn 04/23 19:40 Order name: Magnesium; Complete Time: 20:34 rn 04/23 19:40 Order name: NT PRO-BNP; Complete Time: 20:34 rn 04/23 19:40 Order name: PT-INR; Complete Time: 20:06 rn 04/23 19:40 Order name: Troponin (emerg Dept Use Only); Complete Time: 20:34 04/23 19:40 Order name: Lipase; Complete Time: 20:34 rn 04/23 19:41 Order name: Basic Metabolic Panel; Complete Time: 20:34 [facility] 04/23 19:41 Order name: Liver (Hepatic) Function; Complete Time: 20:34 [facility] 04/23 19:41 Order name: CBC with Automated Diff; Complete Time: 20:06 [facility] 04/23 20:55 Order name: COVID-19 : Document "Date of Symptom Onset" if Symptomatic. rn 04/23 20:55 Order name: CORONAVIRUS [facility] 04/23 22:29 Order name: SARS-COV-2 RT PCR; Complete Time: 07:17 [facility] 04/23 19:40 Order name: XRAY Chest (1 view) rn 04/23 21:00 Order name: CT Chest For PE Angio rn 04/24 08:40 Order name: CT [facility] 04/23 19:40 Order name: EKG; Complete Time: 19:41 rn 04/23 19:40 Order name: Cardiac monitoring; Complete Time: 19:49 rn 04/23 19:40 Order name: EKG - Nurse/Tech; Complete Time: 19:49 rn 04/23 19:40 Order name: IV Saline Lock; Complete Time: 19:49 rn 04/23 19:40 Order name: Labs collected and sent; Complete Time: 19:49 rn 04/23 19:40 Order name: O2 Per Protocol; Complete Time: 19:49 rn 04/23 19:40 Order name: O2 Sat Monitoring; Complete Time: 19:49 rn 04/23 23:19 Order name: Oxygen Per Protocol; Complete Time: 23:22 rn EC/16 20:10 Rate is 62 beats/min. Rhythm is regular. QRS [place] is Normal. SC interval is normal. QRS rn interval is normal. QT interval is normal. No Q waves. T waves are Normal. No ST changes noted. Clinical impression: NSR w/ Non-specific ST/T Changes. Interpreted by me. Reviewed by me. Administered Medications: 19:48 Drug: GI Cocktail without - (Maalox Suspension 30 ml, Lidocaine Liquid 2 % 15 ea ml) Route: PO; 20:30 Follow up: Response: No adverse reaction ea 19:48 Drug: morphine 4 mg Route: IVP; Site: right forearm; ea 04/24 01:44 Follow up: Response: No adverse reaction ea 04/23 19:48 Drug: Zofran (Ondansetron) 4 mg Route: IVP; Site: right forearm; ea 04/24 01:44 Follow up: Response: No adverse reaction ea 04/23 21:05 Drug: morphine 4 mg {Note: rass 0.} Route: IVP; Site: right antecubital; ea 22:10 Follow up: Response: No adverse reaction ea 22:15 Drug: Labetalol 2 mg/min {Note: medication discontinued .} Route: IVP; Site: right ea antecubital; 04/24 00:21 Follow up: VO obtained to discontinue medication now and start cardene drip ea 04/23 22:15 Drug: Labetalol 10 mg Route: IVP; Infused Over: 2 mins; Site: right antecubital; ea 04/24 05:10 Follow up: Response: No adverse reaction ea 04/23 23:22 Drug: Demerol 25 mg Route: IVP; Site: left antecubital; ea 04/24 00:30 Follow up: Response: No adverse reaction; Pain is decreased ea 00:34 Drug: Cardene 5 mg/hr Route: IV; Rate: 5 mg/hr; Site: right antecubital; ea 01:44 Drug: Demerol 25 mg Route: IVP; Site: right antecubital; ea 02:15 Follow up: Response: No adverse reaction; Pain is decreased ea 04:06 Drug: Demerol 50 mg Route: IVP; Site: left antecubital; ea 05:12 Follow up: Response: No adverse reaction; Pain is decreased; RASS: Alert and Calm (0) ea 04:10 Drug: Zofran (Ondansetron) 4 mg Route: IVP; Site: left antecubital; ea 05:12 Follow up: Response: No adverse reaction ea 07:30 Drug: Demerol 50 mg Route: IVP; Site: right antecubital; hb 07:30 Drug: Zofran (Ondansetron) 4 mg Route: IVP; Site: right antecubital; hb Disposition: 04/24/20 03:04 Transfer ordered to Other Acute Care Facility. Diagnosis is Aortic aneurysm and dissection - Ascending. - Reason for transfer: Higher level of care. - Accepting physician is . - Condition is Serious. - Problem is new. - Symptoms have improved. Signatures: Dispatcher [employer] Sven Stallings, RN Goldy Garcia MD MD rn Baxter, Heather, KURT HICKS Kylie Lim, RN Duncan Lema ea, MD MD ma2 Bev, Ghulam tt3 Corrections: (The following items were deleted from the chart) 04/23 21:42 21:07 Hospitalization Ordered by Ashu Benitez MD for Observation. Preliminary tt3 diagnosis is Chest pain, unspecified. Bed requested for Telemetry/MedSurg (observation). Status is Observation. Condition is Stable. Problem is new. Symptoms have improved. rn 22:01 21:42 04/23/2020 21:07 Hospitalization Ordered by Ashu Benitez MD for Observation. rn Preliminary diagnosis is Chest pain, unspecified. Bed requested for [facility] ER HOLD. Status is Observation. Condition is Stable. Problem is new. Symptoms have improved. tt3 04/24 10:00 03:04 04/24/2020 03:04 Transfer ordered to Other Acute Care Facility. Diagnosis is Aortic aneurysm and dissection - Ascending. Reason for transfer: Higher level of care. Accepting physician is . Condition is Serious. Problem is new. Symptoms have improved. rn
--- NOTE | 2020-04-23 21:08 | ER ---
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 Coronavirus screen: Client denies travel out of the [place] in the last 14 days. Ebola Screen: Patient negative for fever greater than or equal to 101.5 degrees Fahrenheit, and additional compatible Ebola Virus Disease symptoms Patient denies exposure to infectious person. Patient denies travel to an Ebola-affected area in the 21 days before illness onset. No symptoms or risks identified at this time. Initial Sepsis Screen: Does the patient meet any 2 criteria? No. Patient's initial sepsis screen is negative. Does the patient have a suspected source of infection? No. Patient's initial sepsis screen is negative. Risk Assessment: Do you want to hurt yourself or someone else? Patient reports no desire to harm self or others. Onset of symptoms was April 23, 2020. 19:18 Method Of Arrival: EMS: [facility] em 19:18 Acuity: WES 3 em Historical: - Allergies: 19:21 NKDA; em - PMHx: 19:21 Hypertension; em - PSHx: 19:21 Tubal ligation; Tonsillectomy; em - Immunization history:: Adult Immunizations up to date. - Social history:: Smoking status: Patient reports the use of cigarette tobacco products, smokes one-half pack cigarettes per day. - Family history:: not pertinent. - Hospitalizations: : No recent hospitalization is reported. Screenin:49 Abuse screen: Denies threats or abuse. Nutritional screening: No deficits noted. ea Tuberculosis screening: No symptoms or risk factors identified. Fall Risk None identified. Assessment: 19:52 General: Appears uncomfortable, Behavior is appropriate for age. Pain: Complains of ea pain in chest. Neuro: Level of Consciousness is awake, alert, obeys commands, Oriented to person, place, time, situation. Cardiovascular: Patient's skin is warm and dry. Respiratory: Airway is patent Respiratory effort is even, unlabored, Respiratory pattern is regular, symmetrical. 21:00 Reassessment: Patient and/or family updated on plan of care and expected duration. Pain ea level reassessed. Patient is alert, oriented x 3, equal unlabored respirations, skin warm/dry/pink. 22:01 Reassessment: Patient and/or family updated on plan of care and expected duration. Pain ea level reassessed. Patient is alert, oriented x 3, equal unlabored respirations, skin warm/dry/pink. 23:34 Reassessment: Patient and/or family updated on plan of care and expected duration. Pain ea level reassessed. Awaiting on facility to acceptance. 04/24 01:59 Reassessment: Patient and/or family updated on plan of care and expected duration. Pain ea level reassessed. Patient is alert, oriented x 3, equal unlabored respirations, skin warm/dry/pink. Pt reports pain has decreased. 02:50 Reassessment: Patient and/or family updated on plan of care and expected duration. Pain ea level reassessed. Pt resting with eyes closed, respirations even and unlabored, chest expansions even and symmetrical. 04:12 Reassessment: Patient and/or family updated on plan of care and expected duration. Pain ea level reassessed. Pt reported pain was coming back, provider notified, verbal order obtained, pt tolerated medication well. 05:09 Reassessment: Patient and/or family updated on plan of care and expected duration. Pain ea level reassessed. Patient is alert, oriented x 3, equal unlabored respirations, skin warm/dry/pink. Awaiting on an accepting facility. 07:31 Reassessment: Pt c/o chest pain 12/15. Dr. Scott notified, v/o for repeat Demerol and hb Zofran given. Medication administered as ordered. VSS. Daughter at bedside. Awaiting acceptance at higher level of care. 08:48 Reassessment: Patient appears in no apparent distress at this time. No changes from hb previously documented assessment. Patient and/or family updated on plan of care and expected duration. Pain level reassessed. 09:30 Reassessment: Patient appears in no apparent distress at this time. No changes from hb previously documented assessment. Patient and/or family updated on plan of care and expected duration. Pain level reassessed. Vital Signs: 04/23 19:18 Pulse 62; Resp 18; Temp 97.6; Pulse Ox 98% on R/A; Weight 78.02 kg; Height 5 ft. 2 in. em (157.48 cm); Pain 9/10; 20:00 BP 151 / 99; Pulse 61; Resp 20; Pulse Ox 96% ; rr5 20:50 BP 153 / 95; Pulse 69; Resp 17; Pulse Ox 99% ; rr5 22:19 BP 165 / 88; Pulse 60; Resp 18; Pulse Ox 99% ; ea 22:54 BP 144 / 79; Pulse 61; Resp 16; Pulse Ox 97% ; ea 23:33 BP 137 / 87; Pulse 57; Resp 17; Pulse Ox 97% on 2 lpm NC; ea 04/24 00:55 BP 125 / 68; Pulse 62; Resp 16; Pulse Ox 98% 2 lpm ; ea 01:59 BP 106 / 65; Pulse 61; Resp 18; Pulse Ox 98% ; ea 03:22 BP 130 / 63; Pulse 65; Resp 16; Pulse Ox 97% on 2 lpm NC; ea 04:30 BP 116 / 81; Pulse 64; Resp 18; Temp 97.8; Pulse Ox 97% on R/A; ea 05:43 BP 125 / 65; Pulse 71; Resp 16; Pulse Ox 97% ; ea 07:30 BP 119 / 69; Pulse 67; Resp 16; Pulse Ox 97% on R/A; hb 08:12 BP 114 / 74; Pulse 60; Resp 15; Pulse Ox 100% on R/A; Pain 5/10; hb 09:00 BP 122 / 70; Pulse 55; Resp 14; Pulse Ox 96% on R/A; hb 09:30 BP 127 / 72; Pulse 56; Resp 15; Pulse Ox 97% on R/A; hb 04/23 19:18 Body Mass Index 31.46 (78.02 kg, 157.48 cm) em ED Course: 04/23 19:18 Patient arrived in ED. em 19:20 Triage completed. em 19:21 Arm band placed on. em 19:34 Goldy Benitez MD is Attending Physician. rn 19:35 Kylie Lim RN is Primary Nurse. ea 19:49 Patient has correct armband on for positive identification. Bed in low position. Call ea light in reach. athletic monitor on. Pulse ox on. NIBP on. 19:49 Maintain EMS IV. Dressing intact. Good blood return noted. Site clean \T\ dry. Gauge \T\ ea site: 20 G right AC . Patient maintains SpO2 saturation greater than 95% on room air. 20:08 XRAY Chest (1 view) In Process Unspecified. EDMS 21:06 Ashu Benitez MD is Hospitalizing Provider. rn 22:15 Inserted saline lock: 20 gauge in left antecubital area, using aseptic technique. em 22:21 No provider procedures requiring assistance completed. Patient transferred, IV remains ea in place. 04/24 08:12 Attending Physician role handed off by Goldy Benitez MD ma2 08:12 Duncan Scott MD is Attending Physician. ma2 Administered Medications: 04/23 19:48 Drug: GI Cocktail without - (Maalox Suspension 30 ml, Lidocaine Liquid 2 % 15 ea ml) Route: PO; 20:30 Follow up: Response: No adverse reaction 19:48 Drug: morphine 4 mg Route: IVP; Site: right forearm; ea 04/24 01:44 Follow up: Response: No adverse reaction 04/23 19:48 Drug: Zofran (Ondansetron) 4 mg Route: IVP; Site: right forearm; ea 04/24 01:44 Follow up: Response: No adverse reaction ea 04/23 21:05 Drug: morphine 4 mg {Note: rass 0.} Route: IVP; Site: right antecubital; ea 22:10 Follow up: Response: No adverse reaction 22:15 Drug: Labetalol 2 mg/min {Note: medication discontinued .} Route: IVP; Site: right ea antecubital; 04/24 00:21 Follow up: VO obtained to discontinue medication now and start cardene drip ea 04/23 22:15 Drug: Labetalol 10 mg Route: IVP; Infused Over: 2 mins; Site: right antecubital; ea 04/24 05:10 Follow up: Response: No adverse reaction ea 04/23 23:22 Drug: Demerol 25 mg Route: IVP; Site: left antecubital; ea 04/24 00:30 Follow up: Response: No adverse reaction; Pain is decreased ea 00:34 Drug: Cardene 5 mg/hr Route: IV; Rate: 5 mg/hr; Site: right antecubital; ea 01:44 Drug: Demerol 25 mg Route: IVP; Site: right antecubital; ea 02:15 Follow up: Response: No adverse reaction; Pain is decreased ea 04:06 Drug: Demerol 50 mg Route: IVP; Site: left antecubital; ea 05:12 Follow up: Response: No adverse reaction; Pain is decreased; RASS: Alert and Calm (0) ea 04:10 Drug: Zofran (Ondansetron) 4 mg Route: IVP; Site: left antecubital; ea 05:12 Follow up: Response: No adverse reaction ea 07:30 Drug: Demerol 50 mg Route: IVP; Site: right antecubital; hb 07:30 Drug: Zofran (Ondansetron) 4 mg Route: IVP; Site: right antecubital; hb Intake: Outcome: 04/23 21:07 Decision to Hospitalize by Provider. rn 04/24 03:04 ER care complete, transfer ordered by . rn 03:30 Instructed on the need for transfer, Demonstrated understanding of instructions. ea 09:58 Transferred by ground EMS to [facility]. hb 09:58 Condition: stable 10:00 Patient left the ED. hb Signatures: Dispatcher [employer] Sven Stallings RN Goldy Garcia MD MD rn Baxter, Heather, RN RN Kylie Lim RN RN ea Alzahri, Mohammad, MD MD az2 Ashu Spangler RN RN rr5 Corrections: (The following items were deleted from the chart) 00:20 04/23 22:15 Labetalol 2 mg/min IVP in right antecubital ea ea
[2020-04-23] MEDS ORDERED: LABETALOL HCL 100 MG/20 ML ONE ×2 (22:19→22:22)
[2020-04-23] MEDS ORDERED: LABETALOL 20 MG/4ML SYRINGE IV ONE (22:20)
[2020-04-23] MEDS ORDERED: MEPERIDINE HCL 25 MG/ML SYR ONE (23:36)
[2020-04-24] MEDS ORDERED: Nicardipine/NS 25 MG/250 ML KIT IV ONE (00:41)
[2020-04-24] MEDS ORDERED: MEPERIDINE HCL 25 MG/ML SYR ONE (01:55)
[2020-04-24] MEDS ORDERED: MEPERIDINE HCL 50 MG/ML ONE ×2 (04:18→07:39)
[2020-04-24] MEDS ORDERED: ONDANSETRON 4 MG/2 ML VIAL ONE ×2 (04:23→07:39)
--- NOTE | 2020-04-24 07:25 | RAD REPORT ---
EXAM DESCRIPTION: Bang Single View04/23/2020 10:37 pm CLINICAL HISTORY: Chest pain COMPARISON: CT scan on the same date FINDINGS: The lungs appear clear of acute infiltrate. The cardiac silhouette is borderline enlarged . Patient's known thoracic aortic aneurysm is not clearly visualized on this exam
--- NOTE | 2020-04-24 08:40 | RAD REPORT ---
EXAM DESCRIPTION: CT - Chest For Pe Angio - 04/23/2020 10:37 pm CLINICAL HISTORY: Chest pain COMPARISON: 2017 TECHNIQUE: Dynamically enhanced axial 3 mm thick images of the chest were obtained during administra tion of <100> mL Isovue 370 IV contrast. Coronal and oblique reconstruction images were generated and reviewed. Exam utilizes a protocol for optimal evaluation of pulmonary arterial tree. Maximum intensity projections 3D imaging was utilized All CT scans are performed using dose optimization technique as appropriate and may include automated exposure control or mA/KV adjustment according to patient size. FINDINGS: Due to the Internet being down the examination could not be dictated prior to completion. Preliminary report was given to the referring physician. A pulmonary embolus is not seen. 4.5 centimeter aneurysm ascending thoracic aorta. A dissection involves the proximal ascending thorac ic aorta with small amount of hemoperitoneum. The aneurysm extends into the aortic arch terminating j ust prior to the takeoff of the left subclavian artery. The dissection extends into the proximal brac hiocephalic artery. Subtle lucency within the proximal left subclavian artery probably artifact. Subt le dissection another consideration but probably less likely A pleural effusion is not seen. A pericardial effusion is not seen. A lung consolidation is not present. IMPRESSION: Dissection involving the proximal thoracic ascending aorta extending into the transverse arch. It involves the proximal brachiocephalic artery. Small amount of hemopericardium is present. A 4.5 centimeter aneurysm ascending thoracic aorta Negative for a pulmonary embolism.
[2020-04-24 10:35] VITALS: TEMP 97.8
[2020-04-24 10:42] VITALS: BP 127/72; O2SAT 97
--- NOTE | 2020-04-24 14:38 | EKG ---
Test Date: 2020-04-23 Test Time: 19:22:37 Heavy Equipment Operator: SUNNY MEASUREMENT RESULTS: Intervals: Rate: 62 CA: 182 QRSD: 84 QT: 434 QTc: 440 [place]: P: 37 CA: 182 QRS: 10 T: 60 INTERPRETIVE STATEMENTS: Normal sinus rhythm Anterior infarct, age undetermined Abnormal ECG Compared to ECG 03/20/2016 11:21:37 Myocardial infarct finding now present Sinus bradycardia no longer present Left ventricular hypertrophy no longer present Electronically Signed On 04-24-20 14:37:26 PLUG SORTER by Óscar Mohr
== END 2020-04-24 10:00 ==
LOC: ER 19:14 → ERHOLD 21:29 → UNDOADMOB 21:29 → ER 04-24 10:00
DX: I71.01 Dissection of thoracic aorta (principal); Z20.822 Contact with and (suspected) exposure to COVID-19; F17.210 Nicotine dependence, cigarettes, uncomplicated
CPT/HCPCS: 36415; 71045; 71275; 80048; 80076; 83690; 83735; 83880; 84484; 85025; 85610; 93005; 99285; J2175; J2405; Q9967; U0003

== ENCOUNTER 2021-01-02 11:38 | Emergency (ER) | payer SELFPAY ==
[2021-01-02 12:15] LABS: Protime INR 0.97
[2021-01-02 12:16] LABS: Hematocrit 40.9 % (36.0-45.0); RBC Red Blood Cell Count 4.99 M/uL (3.86-4.86)
[2021-01-02 12:17] LABS: Absolute Lymphocytes (CBC) 1.8 K/uL (0.7-4.9); Basophils % 0.7 % (0-1.3); Lymphocytes % 24.6 % (15.3-44.8); MPV 7.8 fL (7.6-11.3)
[2021-01-02 12:35] LABS: ALT/SGPT 19 U/L (12-78); AST/SGOT 12 U/L (15-37); Albumin 3.4 g/dL (3.4-5.0); Alkaline Phosphatase 65 U/L (45-117); BUN Blood Urea Nitrogen 15 mg/dL (7-18); Bicarbonate 26 mmol/L (21-32); Bilirubin Direct 0.1 mg/dL (0-0.2); Bilirubin Total 0.4 mg/dL (0.2-1.0); Glucose Level 106 mg/dL (74-106); Magnesium 2.1 mg/dL (1.8-2.4); NT PRO-BNP 334 pg/mL (<125); Potassium 3.8 mmol/L (3.5-5.1); Protein, Total 7.5 g/dL (6.4-8.2); Sodium Level 141 mmol/L (136-145); Troponin (Emerg Dept Use Only) < 0.02 ng/mL (0.0-0.045)
[2021-01-02] MEDS ORDERED: MORPHINE 4 MG/ML SYR ONE (12:49)
[2021-01-02] MEDS ORDERED: ONDANSETRON 4 MG/2 ML VIAL ONE (12:49)
--- NOTE | 2021-01-02 13:10 | RAD REPORT ---
EXAM DESCRIPTION: RAD - Chest Single View - 01/02/2021 12:54 pm CLINICAL HISTORY: CHEST PAIN COMPARISON: Chest Single View dated 04/23/2020; Chest Single View dated 03/20/2016; Chest Single View dated 08/30/2015; CHEST SINGLE VIEW dated 05/13/2015 FINDINGS: Lines: None. Lungs: No evidence of edema or pneumonia. Pleural: No significant pleural effusions or pneumothorax. Cardiac: The heart size is within normal limits. Bones: No acute fractures. Sternotomy. Right axillary surgical clips. Other: IMPRESSION: No acute cardiopulmonary disease.
--- NOTE | 2021-01-02 13:31 | RAD REPORT ---
EXAM DESCRIPTION: CTAngio Aorta For Dissection - 01/02/2021 1:05 pm CLINICAL HISTORY: CHEST PAIN COMPARISON: Chest For Pe Angio dated 04/23/2020 TECHNIQUE: CT of the chest, abdomen, and pelvis was performed. All CT scans are performed using dose optimization technique as appropriate and may include automated exposure control or mA/KV adjustment according to patient size. FINDINGS: Thorax: Chest Wall: Calcified right thyroid nodule. Lungs: No acute abnormality. Pleura: No effusions or pneumothorax. Juanita/Mediastinum: No lymphadenopathy. Aorta/Pulmonary Arteries: Aortic valve calcifications. Sternotomy for repair of the ascending thoraci c aortic dissection. No aneurysm is identified. There is a small amount of extraluminal hyperdensity as well as some plaque irregularity that is favored postoperative. Heart: Normal size. No pericardial effusion. Abdomen/Pelvis: Liver: No acute abnormality or suspicious lesions. Biliary: Too small to characterize liver lesions which are likely benign. Stomach: No significant focal abnormality. Duodenum: No significant focal abnormality. Pancreas: No significant abnormality. Spleen: No significant abnormality. Adrenal: No suspicious lesions. Kidney/ureter: No hydronephrosis. No renal calculi. Retroperitoneum: No retroperitoneal adenopathy. Vascular: There is compression of the celiac trunk secondary to median arcuate ligament with poststen otic dilatation. Bowel: No significant focal abnormality. Diverticulosis without diverticulitis. Peritoneum: No ascites or free air. Bladder: Grossly unremarkable. Reproductive: No adnexal masses. Bones: No acute fracture. IMPRESSION: Interval ascending thoracic aortic dissection repair without apparent complication. Martha elation with any postoperative imaging would be helpful. No pericardial effusion. No acute findings otherwise identified within the chest, abdomen, or pelvis.
--- NOTE | 2021-01-02 13:40 | ER ---
Nurse's Notes [facility] Name: Chantell Castillo Age: 65 yrs Sex: Female : 1955 Arrival Date: 01/02/2021 Time: 11:39 Bed 13 Private MD: Diagnosis: Chest pain, unspecified Presentation: 01/02 11:47 Chief complaint: Patient states: Chest pain that radiates from right side side of chest ch5 to abd and back. Hx of a AAA Apr 23 2020 in [place]. Coronavirus screen: Vaccine status: Patient reports receiving the 2nd dose of the covid vaccine. Client denies travel out of the [place] in the last 14 days. At this time, the client does not indicate any symptoms associated with coronavirus-19. Ebola Screen: Patient negative for fever greater than or equal to 101.5 degrees Fahrenheit, and additional compatible Ebola Virus Disease symptoms Patient denies exposure to infectious person. Patient denies travel to an Ebola-affected area in the 21 days before illness onset. No symptoms or risks identified at this time. Initial Sepsis Screen: Does the patient meet any 2 criteria? No. Patient's initial sepsis screen is negative. Does the patient have a suspected source of infection? No. Patient's initial sepsis screen is negative. Risk Assessment: Do you want to hurt yourself or someone else? Patient reports no desire to harm self or others. 11:47 Method Of Arrival: Ambulatory [facility] 11:47 Acuity: WES 2 5 11:50 Onset of symptoms was January 02, 2021. jd3 Triage Assessment: 11:50 General: Appears in no apparent distress. uncomfortable, Behavior is cooperative, ch5 anxious. Pain: Complains of pain in chest. Historical: - Allergies: 11:50 NKDA; ch5 - Home Meds: 11:50 lisinopril 40 mg Oral tab 1 tab twice a day [Active]; ch5 - PMHx: 11:50 Hypertension; COPD; CHF; GERD; ch5 - PSHx: 11:50 AAA repair; ch5 - Immunization history:: Adult Immunizations up to date, Client reports receiving the 2nd dose of the Covid vaccine. - Social history:: Smoking status: Patient reports the use of cigarette tobacco products, denies chronic smoking, but will smoke occasionally. Screenin:11 Abuse screen: Denies threats or abuse. Nutritional screening: No deficits noted. jd3 Tuberculosis screening: No symptoms or risk factors identified. Fall Risk Ambulatory Aid- None/Bed Rest/Nurse Assist (0 pts). Gait- Normal/Bed Rest/Wheelchair (0 pts) Mental Status- Oriented to own ability (0 pts). Total Hartmann Fall Scale indicates No Risk (0-24 pts). Assessment: 11:55 General: Appears in no apparent distress. uncomfortable, Behavior is calm, cooperative. jd3 Pain: Complains of pain in epigastric area Pain does not radiate. Pain began gradually. Neuro: Level of Consciousness is awake, alert, Oriented to person, place, time, situation. Cardiovascular: Reports chest pain, Capillary refill < 3 seconds Patient's skin is warm and dry. Chest pain quality is indigestion, pressure. Respiratory: Airway is patent Respiratory effort is even, unlabored, Respiratory pattern is regular, symmetrical. GI: Abdomen is flat, Reports epigastric pain, nausea. : No deficits noted. EENT: No deficits noted. Derm: No deficits noted. Musculoskeletal: No deficits noted. 13:10 Reassessment: Patient appears in no apparent distress at this time. No changes from jd3 previously documented assessment. Patient and/or family updated on plan of care and expected duration. Pain level reassessed. Patient is alert, oriented x 3, equal unlabored respirations, skin warm/dry/pink. 14:53 Reassessment: Patient and/or family updated on plan of care and expected duration. Pain jd3 level reassessed. Patient is alert, oriented x 3, equal unlabored respirations, skin warm/dry/pink. pt even and steady gain on dc, reports understanding of follow up education, pt pain improved. Vital Signs: 11:47 BP 161 / 97; Pulse 87; Resp 19; Temp 97.1; Pulse Ox 98% ; Weight 79.38 kg; Height 5 ft. ch5 3 in. (160.02 cm); Pain 5/10; 13:10 BP 149 / 74; Pulse 76; Resp 17 S; Pulse Ox 98% on R/A; jd3 14:23 BP 148 / 88; Pulse 64; Resp 18; Pulse Ox 97% on R/A; jd3 11:47 Body Mass Index 31.00 (79.38 kg, 160.02 cm) ch5 ED Course: 11:39 Patient arrived in ED. ds1 11:45 Daniel Sanon NP is PHCP. pm1 11:45 Goldy Benitez MD is Attending Physician. pm1 11:50 Triage completed. ch5 11:50 Arm band placed on right wrist. ch5 12:11 Pascual Hogan, RN is Primary Nurse. jd3 12:12 Basic Metabolic Panel Sent. jd3 12:12 CBC with Diff Sent. jd3 12:12 LFT's Sent. jd3 12:12 Magnesium Sent. jd3 12:12 NT PRO-BNP Sent. jd3 12:12 PT-INR Sent. jd3 12:12 Troponin (emerg Dept Use Only) Sent. jd3 12:13 Inserted saline lock: 18 gauge in right antecubital area, using aseptic technique. jd3 12:55 XRAY Chest (1 view) In Process Unspecified. EDMS 13:05 CT Aorta for Dissection In Process Unspecified. EDMS 13:11 Patient has correct armband on for positive identification. Bed in low position. Call jd3 light in reach. Side rails up X 1. Adult w/ patient. wrecker driver on. Pulse ox on. NIBP on. 13:11 Patient maintains SpO2 saturation greater than 95% on room air. jd3 14:56 No provider procedures requiring assistance completed. IV discontinued, intact, jd3 bleeding controlled, No redness/swelling at site. Pressure dressing applied. Administered Medications: 12:25 Drug: morphine 4 mg Route: IVP; Site: right antecubital; jd3 13:17 Follow up: Response: Pain is decreased; RASS: Alert and Calm (0) ld1 12:25 Drug: Zofran (Ondansetron) 4 mg Route: IVP; Site: right antecubital; jd3 13:17 Follow up: Response: No adverse reaction ld1 Outcome: 13:39 Discharge ordered by . pm1 14:57 Patient left the ED. 5 Signatures: Dispatcher [employer] EDID Jami Reece ds1 Daniel Sanon NP SPEECH PATHOLOGY SUPERVISOR pm1 Pascual Hogan RN RN jd3 Divina Thomas RN RN ld1 Zenon Wong RN RN 5
--- NOTE | 2021-01-02 13:40 | EDPHYS ---
Physician Documentation [facility] Name: Chantell Castillo Age: 65 yrs Sex: Female : 1955 Arrival Date: 01/02/2021 Time: 11:39 Bed 13 Private MD: ED Physician Goldy Benitez HPI: 01/02 11:45 This 65 yrs old Female presents to ER via Ambulatory with complaints of Chest pm1 Pain. 11:45 The patient or guardian reports chest pain that is located primarily in the mid-sternal pm1 area. Onset: 8 month(s) ago. The pain does not radiate. Associated signs and symptoms: The patient has no apparent associated signs or symptoms. The chest pain is described as sharp. Duration: The patient or guardian reports a single episode, that is still ongoing, and unchanged. Modifying factors: The symptoms are alleviated by nothing. the symptoms are aggravated by side lying on either side. Severity of pain: in the emergency department the pain is unchanged. The patient has not recently seen a physician. With aortic dissection in April of this year. Patient reports the same chest pain today has been present every day since her aortic dissection repair. Historical: - Allergies: 11:50 NKDA; ch5 - Home Meds: 11:50 lisinopril 40 mg Oral tab 1 tab twice a day [Active]; ch5 - PMHx: 11:50 Hypertension; COPD; CHF; GERD; ch5 - PSHx: 11:50 AAA repair; ch5 - Immunization history:: Adult Immunizations up to date, Client reports receiving the 2nd dose of the Covid vaccine. - Social history:: Smoking status: Patient reports the use of cigarette tobacco products, denies chronic smoking, but will smoke occasionally. ROS: 11:56 Constitutional: Negative for fever, chills, and weight loss. pm1 11:56 Respiratory: Negative for shortness of breath, cough, wheezing, and pleuritic chest pain, Abdomen/GI: Negative for abdominal pain, nausea, vomiting, diarrhea, and constipation, Back: Negative for injury and pain, MS/Extremity: Negative for injury and deformity, Skin: Negative for injury, rash, and discoloration, Neuro: Negative for headache, weakness, numbness, tingling, and seizure. 11:56 Cardiovascular: Positive for chest pain, Negative for edema, palpitations. 11:56 All other systems are negative. Exam: 11:56 Constitutional: This is a well developed, well nourished patient who is awake, alert, pm1 and in no acute distress. Head/Face: Normocephalic, atraumatic. 11:56 Skin: Warm, dry with normal turgor. Normal color with no rashes, no lesions, and no evidence of cellulitis. MS/ Extremity: Pulses equal, no cyanosis. Neurovascular intact. Full, normal range of motion. 11:56 Chest/axilla: Palpation: tenderness, that is moderate, of the along the scar on the mid-sternal area, that totally reproduces the patient's complaints. 11:56 Cardiovascular: Exam negative for acute changes, Rate: normal, Rhythm: regular, Pulses: no pulse deficits are appreciated, Heart sounds: normal, normal S1and S2. 11:56 Respiratory: Exam negative for acute changes, respiratory distress, shortness of breath, Breath sounds: are clear throughout. 11:56 Abdomen/GI: Exam negative for acute changes, Inspection: abdomen appears normal, Palpation: abdomen is soft and non-tender, in all quadrants. 11:56 Neuro: Exam negative for acute changes, Orientation: is normal, Mentation: is normal, Motor: is normal, moves all fours. Vital Signs: 11:47 BP 161 / 97; Pulse 87; Resp 19; Temp 97.1; Pulse Ox 98% ; Weight 79.38 kg; Height 5 ft. ch5 3 in. (160.02 cm); Pain 5/10; 13:10 BP 149 / 74; Pulse 76; Resp 17 S; Pulse Ox 98% on R/A; jd3 14:23 BP 148 / 88; Pulse 64; Resp 18; Pulse Ox 97% on R/A; jd3 11:47 Body Mass Index 31.00 (79.38 kg, 160.02 cm) ch5 MDM: 11:45 Patient medically screened. pm1 13:39 Data reviewed: vital signs. Data interpreted: Pulse oximetry: on room air is 98 %. pm1 Interpretation: normal. Counseling: I had a detailed discussion with the patient and/or guardian regarding: the historical points, exam findings, and any diagnostic results supporting the discharge/admit diagnosis, lab results, radiology results, the need for outpatient follow up, to return to the emergency department if symptoms worsen or persist or if there are any questions or concerns that arise at home. 01/02 11:45 Order name: Basic Metabolic Panel; Complete Time: 12:37 pm1 01/02 11:45 Order name: CBC with Diff; Complete Time: 12:20 pm1 01/02 11:45 Order name: LFT's; Complete Time: 12:37 pm1 01/02 11:45 Order name: Magnesium; Complete Time: 12:37 pm1 01/02 11:45 Order name: NT PRO-BNP; Complete Time: 12:37 pm1 01/02 11:45 Order name: PT-INR; Complete Time: 12:20 pm1 01/02 11:45 Order name: Troponin (emerg Dept Use Only); Complete Time: 12:37 pm1 01/02 11:45 Order name: XRAY Chest (1 view); Complete Time: 13:24 pm1 01/02 11:45 Order name: EKG; Complete Time: 11:46 pm1 01/02 11:45 Order name: Cardiac monitoring; Complete Time: 12:12 pm1 01/02 11:45 Order name: EKG - Nurse/Tech; Complete Time: 12:12 pm1 01/02 12:38 Order name: CT Aorta for Dissection; Complete Time: 13:35 pm1 01/02 11:45 Order name: IV Saline Lock; Complete Time: 12:12 pm1 01/02 11:45 Order name: Labs collected and sent; Complete Time: 12:12 pm1 01/02 11:45 Order name: O2 Per Protocol; Complete Time: 12:12 pm1 01/02 11:45 Order name: O2 Sat Monitoring; Complete Time: 12:12 pm1 Administered Medications: 12:25 Drug: morphine 4 mg Route: IVP; Site: right antecubital; jd3 13:17 Follow up: Response: Pain is decreased; RASS: Alert and Calm (0) ld1 12:25 Drug: Zofran (Ondansetron) 4 mg Route: IVP; Site: right antecubital; jd3 13:17 Follow up: Response: No adverse reaction ld1 Disposition: 18:34 Co-signature as Attending Physician, Goldy Benitez MD I agree with the assessment and rn plan of care. Attestation: The patient's history, exam findings, diagnostics, and a summary of any interventions or procedures was reviewed in detail with Daniel Sanon NP. Disposition Summary: 01/02/21 13:39 Discharge Ordered Location: Home pm1 Problem: new pm1 Symptoms: have improved pm1 Condition: Stable pm1 Diagnosis - Chest pain, unspecified pm1 Followup: pm1 - With: Emergency Department - When: As needed - Reason: Worsening of condition Followup: pm1 - With: Private Physician - When: 2 - 3 days - Reason: Recheck today's complaints, Continuance of care, Re-evaluation by your physician Discharge Instructions: - Discharge Summary Sheet pm1 - Nonspecific Chest Pain, Adult pm1 Forms: - Medication Reconciliation Form pm1 - Thank You Letter pm1 - Antibiotic Education pm1 - Prescription Opioid Use pm1 Signatures: Dispatcher [employer] EDMS Goldy Benitez MD MD rn Marinas, Patrick, NP [employer] pm1 Pascual Hogan RN RN jd3 Zenon Wong RN RN ch5 Divina Thomas RN ld1
[2021-01-02 15:04] VITALS: TEMP 97.1
[2021-01-02 15:07] VITALS: BP 148/88; O2SAT 97
== END 2021-01-02 14:57 | disposition home or self-care (01) ==
LOC: ER 11:38
DX: R07.9 Chest pain, unspecified (principal); I10 Essential (primary) hypertension; I50.9 Heart failure, unspecified; F17.210 Nicotine dependence, cigarettes, uncomplicated
CPT/HCPCS: 36415; 71045; 71275; 74175; 80048; 80076; 83735; 83880; 84484; 85025; 85610; 93005; 96374; 96375; 99285; J2405; Q9967

== ENCOUNTER 2022-01-12 19:55 | Emergency (ER) | payer MEDICARE, OTHER ==
--- OUTSIDE RECORDS SUMMARY | 2022-01-12 20:01 | XMS REPORT | Continuity of Care Document ---
:1955 Author Organization [facility] t Address [address] [place] [address] Care Team Providers Name Role Phone MARINA LEVY Attending Clinician Unavailable OSVALDO STREETER Attending Clinician Unavailable CHRISTIAN SUAREZ Attending Clinician Unavailable SARA GRAY Attending Clinician Unavailable MARINA LEVY Admitting Clinician Unavailable Payers Payer Name Policy Type Policy Number Effective Date Expiration Date [facility] [id number] 2021 (MEDICARE 00:00:00 REPLACEMENT HMO) Problems Condition Condition Condition Status Onset Resolution Last Treating Co mments Source Name Details Category Date Date Treatment Clinician Date 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 00:00: Sc dical 00 Center Allergies, Adverse Reactions, Alerts Allergy Allergy Status Severity Reaction(s) Onset Inactive Treating Comm ents Source Name Type Date Date Clinician NO KNOWN Allergy Active [facility] Social History Social Habit Start Date Stop Date Quantity Comments Source Tobacco use and 2020-05-10 2020-05-10 Never used [facility] Saritha kes exposure 00:00:00 00:00:00 [facility] Sex Assigned At [birth year] [facility] [address] Sar[facility] kes 00:00:00 00:00:00 [facility] Smoking Status Start Date Stop Date Source Former smoker 2020-05-10 00:00:00 2020-05-10 00:00:00 [facility] Medications This patient has no known medications. Vital Signs Vital Name Observation Time Observation Value Comments Source WEIGHT 2020-05-05 05:00:00 79.788 kg WEIGHT 2020-05-02 04:48:00 80.513 kg WEIGHT 2020-05-01 04:00:00 79.652 kg WEIGHT 2020-04-30 04:09:00 80.831 kg WEIGHT 2020-04-29 06:00:00 82.328 kg WEIGHT 2020-04-27 01:27:00 79.9 kg WEIGHT 2020-04-25 06:00:00 79.2 kg HEIGHT 2020-04-24 11:00:00 157.5 cm WEIGHT 2020-04-24 11:00:00 78 kg HEIGHT 2020-05-13 10:50:00 157.5 cm WEIGHT 2020-05-13 10:50:00 79.379 kg HEIGHT 2020-05-10 11:37:00 157.5 cm WEIGHT 2020-05-10 11:37:00 79.379 kg WEIGHT 2020-05-05 05:00:00 79.788 kg WEIGHT 2020-05-02 04:48:00 80.513 kg WEIGHT 2020-05-01 04:00:00 79.652 kg WEIGHT 2020-04-30 04:09:00 80.831 kg WEIGHT 2020-04-29 06:00:00 82.328 kg WEIGHT 2020-04-27 01:27:00 79.9 kg WEIGHT 2020-04-25 06:00:00 79.2 kg HEIGHT 2020-04-24 11:00:00 157.5 cm WEIGHT 2020-04-24 11:00:00 78 kg Procedures This patient has no known procedures. Plan of Care Planned Activity Planned Date Details Comments Source Future Scheduled 2021-11-06 INFLUENZA VACCINE (#1) [facility] 00:[facility]00 [code = INFLUENZA Medical Ce nter VACCINE (#1)] Future Scheduled 2021-03-[address] [facility] 00:00:00 (12+) [code = Medical Center DEPRESSION SCREENING (12+)] Future Scheduled 2021-03-08 FALLS RISK SCREENING [facility] 00:00:00 [code = FALLS RISK Medical C enter SCREENING] Future Scheduled 2021-01-26 PNEUMOCOCCAL 65+ YRS ([address] [facility] 00:00:00 - PCV) [code = Medical Cente r PNEUMOCOCCAL 65+ YRS (1 - PCV)] Future Scheduled 2006-01-26 SHINGLES VACCINES ([address] [facility] 00:00:00 2) [code = [facility] VACCINES (1 of 2)] Future Scheduled 2001-01-26 Lipid panel (procedure) [facility] 00:00:00 [code = 78041455] Medical Ce nter Future Scheduled 1977-01-26 Screening for malignant [facility] 00:00:00 neoplasm of cervix Medical C enter (procedure) [code = 003968489] Future Scheduled 1975-01-26 DTAP/TDAP/TD VACCINES [facility] 00:00:00 (1 - Tdap) [code = Medical C enter DTAP/TDAP/TD VACCINES (1 - Tdap)] Future Scheduled 1974-01-26 HEPATITIS C SCREENING [facility] 00:00:00 [code = HEPATITIS C [facility] SCREENING] Future Scheduled 1955 COVID-19 VACCINE (#1) [facility] 00:00:00 [code = COVID-[address] VACCINE (#1)] Future Scheduled 1955 DXA SCAN [code = DXA [facility] 00:00:00 SCAN] [facility] Future Scheduled 1955 Screening for malignant [facility] 00:00:00 neoplasm of colon Medical Ce nter (procedure) [code = 757389211] Future Scheduled 1956 Screening for malignant [facility] 00:00:00 neoplasm of colon Medical Ce nter (procedure) [code = 431735813] Future Scheduled 1955 Sigmoidoscopy [code = [facility] 00:[facility]:00 Sigmoidoscopy] [facility] Future Scheduled 1956 Screening for malignant [facility] Test 00:00:00 neoplasm of breast Medical C enter (procedure) [code = 694880425] Future Scheduled 1956 CT Colonography (combo) [facility] Test 00:00:00 [code = CT Colonography [facility] (combo)] Future Scheduled 1955 Screening for malignant [facility] Test 00:00:00 neoplasm of colon Medical Ce nter (procedure) [code = 766491041] Future Scheduled 1956 Screening for malignant [facility] 00:00:00 neoplasm of colon Medical Ce nter (procedure) [code = 999025642] Encounters Start End Encounter Admission Attending Care Care Encounter Source Date/Time Date/Time Type Type Clinicians Facility Department ID 2021-05-01 Outpatient [facility] [id number] Common 13:30:03 [facility] 2020-12-14 Inpatient ER BRI LEVY Surgery [id number] [facility] 03:52:11 MARINA 2021-09-19 2021-09-19 Outpatient DMG DM [id number] [facility] 03:28:00 03:28:00 [id number] [facility] 2021-03-20 2021-03-20 Outpatient DMG DM [id number] [facility] 12:01:00 12:01:00 [id number] Medica l Group 2020-07-16 2020-07-16 Outpatient OSVALDO ANDRADE [facility] SLE [id number] SLE 00:00:00 00:00:00 2020-07-16 2020-07-16 Outpatient SUSIE LEVY [facility] [id number] SLE 00:00:00 00:00:00 MARINA 2020-07-09 2020-07-09 Outpatient SUSIE LEVY [facility] [id number] SLE 00:00:00 00:00:00 MARINA 2020-05-13 2020-05-13 Outpatient SUSIE ESTEBAN [facility] [id number] SLE 00:00:00 00:00:00 [facility] 2020-05-10 2020-05-10 Outpatient SUSIE GRAY [facility] [id number] SLE 00:00:00 00:00:00 BIJI 2020-05-10 2020-05-10 Outpatient MARINA [facility] [id number] SLE 00:00:00 00:00:00 BIJI Results Test Description Test Time Test Comments Results Result Comments Source BLOOD CULTURE 2020-05-07 19:00:00 Test Item Value Reference Range Interpretation Comme nts CULTURE (BEAKER) (test code = 1095) No growth in 5 days BLOOD [id number] 19:00:00 Test Item Value Reference Range Interpretation Comments CULTURE (BEAKER) (test No growth in 5 days code = 1095) RAD, CHEST, 1 VIEW, NON [id number] 14:30:00Reason for exam:->post-opShould this be performed at the bedside?->Yes [facility] 1955 Sex: FFINAL REPORT RAD, CHEST, 1 VIEW, NON DEPT CLINICAL INDICATION: post-op TECHNIQUE: AP view of the chest COMPARISON: Radiograph 05/04/2020 FINDINGS: Unchanged right basilar atelectasis. No new focal consolidation, pleural effusion, or pneumothorax. Cardiomediastinal silhouette, bob, and pulmonary vasculature are unchanged. Sternotomy wires are unchanged. IMPRESSION:No significant interval change. Signed: Sneha Durán Verified Date/Time: 05/05/2020 14:30:36 BASI METABOLIC [id number] 06:38:00 Test Item Value Reference Range Interpretation Comments SODIUM (BEAKER) 137 meq/L 136-145 (test code = 381) POTASSIUM (BEAKER) 4.6 meq/L 3.5-5.1 (test code = 379) CHLORIDE (BEAKER) 101 meq/L 98-107 (test code = 382) CO2 (BEAKER) (test 25 meq/L 22-29 code = 355) BLOOD UREA NITROGEN 11 mg/dL 7-21 (BEAKER) (test code = 354) CREATININE (BEAKER) 0.71 mg/dL 0.57-1.25 (test code = 358) GLUCOSE RANDOM 95 mg/dL 70-105 (BEAKER) (test code = 652) CALCIUM (BEAKER) 8.6 mg/dL 8.4-10.2 (test code = 697) EGFR (BEAKER) (test 83 mL/min/1.73 ESTIMA TRENTON GFR IS code = 1092) sq m NOT ACCURATE CREATININE CLEARANCE IN PREDICTING GLOMERULAR FILTRATION RATE . ESTIMATED GFR I S NOT APPLICABLE FOR DIALYSIS PATIEN TS. First Assistant Manager ID - RYLEE [id number] 06:38:00 Test Item Value Reference Range Interpretation Comments PHOSPHORUS (BEAKER) (test code = 3.3 mg/dL 2.3-4.7 604) First Assistant Manager ID - RYLEE MCBC W/PLT COUNT & AUTO [id number] 05:12:00 Test Item Value Reference Range Interpretation Comments WHITE BLOOD CELL COUNT (BEAKER) 13.4 K/ L 3.5-10.5 H (test code = 775) RED BLOOD CELL COUNT (BEAKER) 2.97 M/ L 3.93-5.22 L (test code = 761) HEMOGLOBIN (BEAKER) (test code = 8.3 GM/DL 11.2-15.7 L 410) HEMATOCRIT (BEAKER) (test code = 26.7 % 34.1-44.9 L 411) MEAN CORPUSCULAR VOLUME (BEAKER) 89.9 fL 79.4-94.8 (test code = 753) MEAN CORPUSCULAR HEMOGLOBIN 27.9 pg 25.6-32.2 (BEAKER) (test code = 751) MEAN CORPUSCULAR HEMOGLOBIN CONC 31.1 GM/DL 32.2-35.5 L (BEAKER) (test code = 752) RED CELL DISTRIBUTION WIDTH 13.6 % 11.7-14.4 (BEAKER) (test code = 412) PLATELET COUNT (BEAKER) (test 442 K/CU MM 150-450 code = 756) MEAN PLATELET VOLUME (BEAKER) 9.2 fL 9.4-12.3 L (test code = 754) NUCLEATED RED BLOOD CELLS 0 /100 WBC 0-0 (BEAKER) (test code = 413) NEUTROPHILS RELATIVE PERCENT 78 % (BEAKER) (test code = 429) LYMPHOCYTES RELATIVE PERCENT 13 % (BEAKER) (test code = 430) MONOCYTES RELATIVE PERCENT 6 % (BEAKER) (test code = 431) EOSINOPHILS RELATIVE PERCENT 2 % (BEAKER) (test code = 432) BASOPHILS RELATIVE PERCENT 0 % (BEAKER) (test code = 437) NEUTROPHILS ABSOLUTE COUNT 10.43 K/ L 1.56-6.13 H (BEAKER) (test code = 670) LYMPHOCYTES ABSOLUTE COUNT 1.70 K/ L 1.18-3.74 (BEAKER) (test code = 414) MONOCYTES ABSOLUTE COUNT (BEAKER) 0.84 K/ L 0.24-0.36 H (test code = 415) EOSINOPHILS ABSOLUTE COUNT 0.31 K/ L 0.04-0.36 (BEAKER) (test code = 416) BASOPHILS ABSOLUTE COUNT (BEAKER) 0.03 K/ L 0.01-0.08 (test code = 417) IMMATURE GRANULOCYTES-RELATIVE 1 % 0-1 PERCENT (BEAKER) (test code = 2801) PROTHROMBIN [id number] 05:10:00 Test Item Value Reference Range Interpretation Comments PROTIME (BEAKER) 13.3 seconds 11.9-14.2 (test code = 759) INR (BEAKER) (test 1.05 See_Comment [Automat ed message] code = 370) The system Sumerian generated this result transmitted ref erence range: <=5.90. The reference range was not used to int erpret this result as normal/abnormal . Effective 08/03/2018: PT Reference Range ChangeNew: 11.9-14.2 Previous: 11.7- 14.7RECOMMENDED COUMADIN/WARFARIN INR THERAPY RANGESSTANDARD DOSE: 2.0-3.0 Includes: PROPHYLAXIS for venous thrombosis, systemic embolization; TREATMENT for venous thrombosis and/or pulmonary embolus.HIGH RISK: Target INR is 2.5-3.5 for patients wiht mechanical heart valves.RAD, CHEST, 1 VIEW, NON [id number] 08:22:00Reason for exam:->post-opShould this be performed at the bedside?->[facility] : 1955 Sex: FFINAL REPORT Chest, one view. HISTORY: post-op COMPARISON: Radiograph from yesterday IMPRESSION: The left basilar atelectasis is unchanged. The right basilar atelectasis has decreased. No pleural effusion or pneumothorax. The cardiac silhouette is unchanged. No acute bone abnormality. Signed: Lanre Schmid MDReport Verified Date/Time: 05/04/2020 08:22:44 Reading Location: [facility] [id number] CT Body Reading Room BASIC METABOLIC [id number] 05:23:00 Test Item Value Reference Range Interpretation Comments SODIUM (BEAKER) 135 meq/L 136-145 L (test code = 381) POTASSIUM (BEAKER) 4.2 meq/L 3.5-5.1 (test code = 379) CHLORIDE (BEAKER) 100 meq/L 98-107 (test code = 382) CO2 (BEAKER) (test 25 meq/L 22-29 code = 355) BLOOD UREA NITROGEN 8 mg/dL 7-21 (BEAKER) (test code = 354) CREATININE (BEAKER) 0.70 mg/dL 0.57-1.25 (test code = 358) GLUCOSE RANDOM 104 mg/dL 70-105 (BEAKER) (test code = 652) CALCIUM (BEAKER) 8.3 mg/dL 8.4-10.2 L (test code = 697) EGFR (BEAKER) (test 84 mL/min/1.73 ESTIMA TRENTON GFR IS code = 1092) sq m NOT ACCURATE CREATININE CLEARANCE IN PREDICTING GLOMERULAR FILTRATION RATE . ESTIMATED GFR I S NOT APPLICABLE FOR DIALYSIS PATIEN TS. First Assistant Manager ID - RYLEE [id number] 05:23:00 Test Item Value Reference Range Interpretation Comments MAGNESIUM (BEAKER) (test code = 1.7 mg/dL 1.6-2.6 627) First Assistant Manager ID - RYLEE [id number] 05:23:00 Test Item Value Reference Range Interpretation Comments PHOSPHORUS (BEAKER) (test code = 3.3 mg/dL 2.3-4.7 604) First Assistant Manager ID - RYLEE MHEPATIC FUNCTION [id number] 05:23:00 Test Item Value Reference Range Interpretation Comments TOTAL PROTEIN (BEAKER) (test code = 6.5 gm/dL 6.0-8.3 770) ALBUMIN (BEAKER) (test code = 1145) 3.2 g/dL 3.5-5.0 L BILIRUBIN TOTAL (BEAKER) (test code 0.5 mg/dL 0.2-1.2 = 377) BILIRUBIN DIRECT (BEAKER) (test 0.5 mg/dL 0.1-0.5 code = 706) ALKALINE PHOSPHATASE (BEAKER) (test 189 U/L 40-150 H code = 346) AST (SGOT) (BEAKER) (test code = 77 U/L 5-34 H 353) ALT (SGPT) (BEAKER) (test code = 76 U/L 6-55 H 347) First Assistant Manager ID Leeanne MCKEE MPROTHROMBIN [id number] 04:28:00 Test Item Value Reference Range Interpretation Comments PROTIME (BEAKER) 13.3 seconds 11.9-14.2 (test code = 759) INR (BEAKER) (test 1.05 See_Comment [Automat ed message] code = 370) The system Sumerian generated this result transmitted ref erence range: <=5.90. The reference range was not used to int erpret this result as normal/abnormal . Effective 08/03/2018: PT Reference Range ChangeNew: 11.9-14.2 Previous: 11.7- 14.7RECOMMENDED COUMADIN/WARFARIN INR THERAPY RANGESSTANDARD DOSE: 2.0-3.0 Includes: PROPHYLAXIS for venous thrombosis, systemic embolization; TREATMENT for venous thrombosis and/or pulmonary embolus.HIGH RISK: Target INR is 2.5-3.5 for patients wiht mechanical heart valves.CBC W/PLT COUNT & AUTO [id number] 04:28:00 Test Item Value Reference Range Interpretation Comments WHITE BLOOD CELL COUNT (BEAKER) 11.0 K/ L 3.5-10.5 H (test code = 775) RED BLOOD CELL COUNT (BEAKER) 2.79 M/ L 3.93-5.22 L (test code = 761) HEMOGLOBIN (BEAKER) (test code = 8.1 GM/DL 11.2-15.7 L 410) HEMATOCRIT (BEAKER) (test code = 24.3 % 34.1-44.9 L 411) MEAN CORPUSCULAR VOLUME (BEAKER) 87.1 fL 79.4-94.8 (test code = 753) MEAN CORPUSCULAR HEMOGLOBIN 29.0 pg 25.6-32.2 (BEAKER) (test code = 751) MEAN CORPUSCULAR HEMOGLOBIN CONC 33.3 GM/DL 32.2-35.5 (BEAKER) (test code = 752) RED CELL DISTRIBUTION WIDTH 13.6 % 11.7-14.4 (BEAKER) (test code = 412) PLATELET COUNT (BEAKER) (test 393 K/CU MM 150-450 code = 756) MEAN PLATELET VOLUME (BEAKER) 9.4 fL 9.4-12.3 (test code = 754) NUCLEATED RED BLOOD CELLS 0 /100 WBC 0-0 (BEAKER) (test code = 413) NEUTROPHILS RELATIVE PERCENT 75 % (BEAKER) (test code = 429) LYMPHOCYTES RELATIVE PERCENT 15 % (BEAKER) (test code = 430) MONOCYTES RELATIVE PERCENT 8 % (BEAKER) (test code = 431) EOSINOPHILS RELATIVE PERCENT 2 % (BEAKER) (test code = 432) BASOPHILS RELATIVE PERCENT 0 % (BEAKER) (test code = 437) NEUTROPHILS ABSOLUTE COUNT 8.20 K/ L 1.56-6.13 H (BEAKER) (test code = 670) LYMPHOCYTES ABSOLUTE COUNT 1.64 K/ L 1.18-3.74 (BEAKER) (test code = 414) MONOCYTES ABSOLUTE COUNT (BEAKER) 0.87 K/ L 0.24-0.36 H (test code = 415) EOSINOPHILS ABSOLUTE COUNT 0.18 K/ L 0.04-0.36 (BEAKER) (test code = 416) BASOPHILS ABSOLUTE COUNT (BEAKER) 0.03 K/ L 0.01-0.08 (test code = 417) IMMATURE GRANULOCYTES-RELATIVE 1 % 0-1 PERCENT (BEAKER) (test code = 2801) U/S, ABDOMINAL, [id number] 11:45:00Abdomen limited area? Add comment if clarification is needed.->Gall BladderReason for exam:->assess gall bladderShould this be performed at the bedside?->Yes [facility] : 1955 Sex: FFINAL REPORT U/S, ABDOMINAL, LIMITED CLINICAL HISTORY: assess gall bladder COMPARISON: None. TECHNIQUE: Real time grayscale and color Doppler images of the right upper quadrant abdominal organs were obtained using a curved transducer. FINDINGS: Pancreas: Partially visualized and unremarkable. Liver: Normal in size and homogeneous in echogenicity. Focal liver lesions: None. Portal vein: Normal, hepatopetal flow. The main portal vein is at the upper limits of normal in diameter. Bile ducts: Normal in caliber. Gallbladder: The gallbladder is mildly overdistended. There is a small amount of sludge in the gallbladder lumen without any visible stones. No gallbladder wall thickening or pericholecystic fluid. Sonographic Smith's sign was mildly positive. Right kidney: Normal in size and cortical thickness. No hydronephrosis. Ascites: None in the upper abdomen. Small right pleural effusion. Visualized aorta and IVC: Poorly evaluated related to bowel gas. MEASUREMENTS:Liver: 15.8 cm Common Duct: 3.8 mm Right Kidney: 9.2 cm Aorta: Not well evaluated related to bowel gas IMPRESSION: Findings equivocal for acute cholecystitis. Mildly over distended gallbladder. Mildly positive sonographic Smith's sign. No biliary ductal dilation. Sludge without stones in the gallbladder lumen. No gallbladder wall thickening or pericholecystic fluid. Consider HIDA scan for further assessment Signed: Dulce Maria, Netta MDReport Verified Date/Time: 05/03/2020 11:45:54 Electronically signed by: NETTA MCCONNELL MD on05/03/2020 11:45 AMRAD, CHEST, 1 VIEW, NON [id number] 09:34:00Reason for exam:->post-opShould this be performed at the bedside?->Yes [facility] : 1955 Sex: FFINAL REPORT INDICATION: post-op COMPARISON: None TECHNIQUE: Single frontal view of the chest. FINDINGS: Lungs and pleura: Basilar interstitial thickening. No effusion.Heart and mediastinum: Normal heart size. Unremarkable mediastinal contours.Osseous structures: No acute abnormality.Other: Prior sternotomy. Signed: Shani Keys Verified Date/Time: 05/03/2020 09:34:46 Reading Location: [facility] Radiology Reading Room HEPATIC FUNCTION [id number] 08:05:00 Test Item Value Reference Range Interpretation Comments TOTAL PROTEIN (BEAKER) (test code = 6.3 gm/dL 6.0-8.3 770) ALBUMIN (BEAKER) (test code = 1145) 3.2 g/dL 3.5-5.0 L BILIRUBIN TOTAL (BEAKER) (test code 0.6 mg/dL 0.2-1.2 = 377) BILIRUBIN DIRECT (BEAKER) (test 0.6 mg/dL 0.1-0.5 H code = 706) ALKALINE PHOSPHATASE (BEAKER) (test 158 U/L 40-150 H code = 346) AST (SGOT) (BEAKER) (test code = 62 U/L 5-34 H 353) ALT (SGPT) (BEAKER) (test code = 57 U/L 6-55 H 347) First Assistant Manager ID - FABIAN [id number] 08:05:00 Test Item Value Reference Range Interpretation Comments AMYLASE (BEAKER) (test code = 349) 57 U/L 25-125 First Assistant Manager ID - FABIAN [id number] 08:05:00 Test Item Value Reference Range Interpretation Comments LIPASE (BEAKER) (test code = 749) 43 U/L 8-78 First Assistant Manager ID - FABIAN LBASIC METABOLIC [id number] 04:43:00 Test Item Value Reference Range Interpretation Comments SODIUM (BEAKER) 136 meq/L 136-145 (test code = 381) POTASSIUM (BEAKER) 4.0 meq/L 3.5-5.1 (test code = 379) CHLORIDE (BEAKER) 100 meq/L 98-107 (test code = 382) CO2 (BEAKER) (test 25 meq/L 22-29 code = 355) BLOOD UREA NITROGEN 9 mg/dL 7-21 (BEAKER) (test code = 354) CREATININE (BEAKER) 0.67 mg/dL 0.57-1.25 (test code = 358) GLUCOSE RANDOM 99 mg/dL 70-105 (BEAKER) (test code = 652) CALCIUM (BEAKER) 8.4 mg/dL 8.4-10.2 (test code = 697) EGFR (BEAKER) (test 89 mL/min/1.73 ESTIMA [place]ON GFR IS code = 1092) sq m NOT ACCURATE CREATININE CLEARANCE IN PREDICTING GLOMERULAR FILTRATION RATE . ESTIMATED GFR I S NOT APPLICABLE FOR DIALYSIS PATIEN TS. First Assistant Manager ID - [id number] 04:43:00 Test Item Value Reference Range Interpretation Comments MAGNESIUM (BEAKER) (test code = 1.6 mg/dL 1.6-2.6 627) First Assistant Manager ID - [id number] 04:43:00 Test Item Value Reference Range Interpretation Comments PHOSPHORUS (BEAKER) (test code = 2.6 mg/dL 2.3-4.7 604) First Assistant Manager ID - ADMINPROTHROMBIN [id number] 04:26:00 Test Item Value Reference Range Interpretation Comments PROTIME (BEAKER) 14.0 seconds 11.9-14.2 (test code = 759) INR (BEAKER) (test 1.12 See_Comment [Automat ed message] code = 370) The system Sumerian generated this result transmitted ref erence range: <=5.90. The reference range was not used to int erpret this result as normal/abnormal . Effective 08/03/2018: PT Reference Range ChangeNew: 11.9-14.2 Previous: 11.7- 14.7RECOMMENDED COUMADIN/WARFARIN INR THERAPY RANGESSTANDARD DOSE: 2.0-3.0 Includes: PROPHYLAXIS for venous thrombosis, systemic embolization; TREATMENT for venous thrombosis and/or pulmonary embolus.HIGH RISK: Target INR is 2.5-3.5 for patients wiht mechanical heart valves.CBC W/PLT COUNT & AUTO [id number] 04:17:00 Test Item Value Reference Range Interpretation Comments WHITE BLOOD CELL COUNT (BEAKER) 9.6 K/ L 3.5-10.5 (test code = 775) RED BLOOD CELL COUNT (BEAKER) 2.86 M/ L 3.93-5.22 L (test code = 761) HEMOGLOBIN (BEAKER) (test code = 8.2 GM/DL 11.2-15.7 L 410) HEMATOCRIT (BEAKER) (test code = 24.9 % 34.1-44.9 L 411) MEAN CORPUSCULAR VOLUME (BEAKER) 87.1 fL 79.4-94.8 (test code = 753) MEAN CORPUSCULAR HEMOGLOBIN 28.7 pg 25.6-32.2 (BEAKER) (test code = 751) MEAN CORPUSCULAR HEMOGLOBIN CONC 32.9 GM/DL 32.2-35.5 (BEAKER) (test code = 752) RED CELL DISTRIBUTION WIDTH 13.6 % 11.7-14.4 (BEAKER) (test code = 412) PLATELET COUNT (BEAKER) (test 359 K/CU MM 150-450 code = 756) MEAN PLATELET VOLUME (BEAKER) 9.6 fL 9.4-12.3 (test code = 754) NUCLEATED RED BLOOD CELLS 0 /100 WBC 0-0 (BEAKER) (test code = 413) NEUTROPHILS RELATIVE PERCENT 71 % (BEAKER) (test code = 429) LYMPHOCYTES RELATIVE PERCENT 18 % (BEAKER) (test code = 430) MONOCYTES RELATIVE PERCENT 10 % (BEAKER) (test code = 431) EOSINOPHILS RELATIVE PERCENT 1 % (BEAKER) (test code = 432) BASOPHILS RELATIVE PERCENT 0 % (BEAKER) (test code = 437) NEUTROPHILS ABSOLUTE COUNT 6.87 K/ L 1.56-6.13 H (BEAKER) (test code = 670) LYMPHOCYTES ABSOLUTE COUNT 1.69 K/ L 1.18-3.74 (BEAKER) (test code = 414) MONOCYTES ABSOLUTE COUNT (BEAKER) 0.93 K/ L 0.24-0.36 H (test code = 415) EOSINOPHILS ABSOLUTE COUNT 0.07 K/ L 0.04-0.36 (BEAKER) (test code = 416) BASOPHILS ABSOLUTE COUNT (BEAKER) 0.02 K/ L 0.01-0.08 (test code = 417) IMMATURE GRANULOCYTES-RELATIVE 1 % 0-1 PERCENT (BEAKER) (test code = 2801) URINALYSIS W/ REFLEX URINE [id number] 17:24:00 Test Item Value Reference Range Interpretation Comments COLOR (BEAKER) (test code = 470) Light Yellow CLARITY (BEAKER) (test code = Clear 469) SPECIFIC GRAVITY UA (BEAKER) 1.015 1.001-1.035 (test code = 468) PH UA (BEAKER) (test code = 467) 7.0 5.0-8.0 PROTEIN UA (BEAKER) (test code = Negative Negative 464) GLUCOSE UA (BEAKER) (test code = Negative Negative 365) KETONES UA (BEAKER) (test code = Negative Negative 371) BILIRUBIN UA (BEAKER) (test code Negative Negative = 462) BLOOD UA (BEAKER) (test code = Negative Negative 461) NITRITE UA (BEAKER) (test code = Negative Negative 465) LEUKOCYTE ESTERASE UA (BEAKER) Negative Negative (test code = 466) UROBILINOGEN UA (BEAKER) (test 0.2 mg/dL 0.2-1.0 code = 463) RBC UA (BEAKER) (test code = < /HPF 519) WBC UA (BEAKER) (test code = 1 /HPF 520) SQUAMOUS EPITHELIAL (BEAKER) 1 /HPF (test code = 516) SOURCE(EVE) (test code = 2795) First Assistant Manager ID - [auto]First Assistant Manager ID - techCTA, CHEST, ABDOMEN - PELVIS, FOR [id number] 15:59:00Only chest and abdomen... pelvis not neededUnlisted Reason for Exam - Click Yes and Enter Reason Below->No [facility] : 1955 Sex: FFINAL REPORT CTA chest and abdomen with and without IV CONTRAST: HISTORY: Thoracoabdominal aortic aneurysm, follow up COMPARISON: No previous relevant images are available for comparison TECHNIQUE: CTA of the chest and abdomen WITH intravenous contrast and WITHOUT oral contrast. Dose modulation, iterative reconstruction, and/or weight-based adjustment of the mA/kV was utilized to reduce the radiation dose to as low as reasonably achievable.3-D reconstructions were acquired and reviewed asdedicated workstation. IV CONTRAST: 125 mL of 7370 ORAL CONTRAST: None COMPLICATIONS: NoneFindings: Vascular findings: Postoperative changes of the ascending thoracic aorta extending to the proximal aortic arch with resection and grafting are noted.Coronary arteries are patent. Negative for thoracoabdominal aortic aneurysm. Noncontrast images are negative for acute intramural hematoma.Normal three-vessel branching pattern of the aortic arch is noted without high-grade occlusion. Celiac, superior mese nteric, single bilateral renal and inferior mesenteric arteries are patent. Abdominal aorta is of normal caliber without significant atherosclerotic disease. Mild atherosclerotic disease at the origin of the right renal artery is noted.Proximal bilateral common iliac arteries are unremarkable. Main/proximal pulmonary arteries are negative for intra-arterial filling defect. Portal vein is patent. Nonvascular findings:: LINES/ TUBES: None. LUNGS AND AIRWAYS: Large airways are patent. Right greater than left basilar atelectasis is noted. PLEURA: Small bilateral pleural effusions are noted. Gated for pneumothorax. HEART AND MEDIASTINUM: There is enhancing fluid within the anterior/superior mediastinumadjacent to the recently placed extending aortic and proximal arch graft. Intraluminal foci of air are identified. Two soft tissue tract identified inferiorly exiting the mediastinum below the level ofthe sternum extending to the skin surface is with internal fluid density and air suggesting fistulous tracts from the collection to the skin surface from previously placed mediastinal drains. Superiorly the collection also extends to the midline sternotomy changes just below the level of the clavicular heads and also extends to the skin surface. Heart is of normal size. Small pericardial effusion is n oted. Multiple enlarged mediastinal lymph nodes are noted. No axillary or hilar lymphadenopathy is noted. Visualized portions of the thyroid are unremarkable. HEPATOBILIARY: No focal hepatic lesions. Gallbladder is unremarkable. No biliary ductal dilatation.SPLEEN: No splenomegaly.PANCREAS: No focal masses or ductal dilatation. ADRENALS: No adrenal nodules.KIDNEYS/URETERS: No hydronephrosis, stones, or masses. PERITONEUM/RETROPERITONEUM: No free air or fluid.LYMPH NODES: No lymphadenopathy. GI TRACT: Visualized bowel loops are not dilated. Limited evaluation due to lack of oral contrast. No surrounding inflammatory changes are noted. BONES AND SOFT TISSUES: Midline sternotomy changes are noted. No suspicious destructive lesion is identified. Moderate degenerative changes of the lower lumbar spineare noted. There are a few foci of air overlying the left pectoralis major, likely related to the known fluid collection extending to the skin surface just underneath the clavicular heads. Soft tissue tracks from previous mediastinal drains are described above. IMPRESSION:1. Postoperative changes fromdescending aortic and proximal transverse/arch resection replacement with graft material. There is free fluid with peripheral enhancement and intraluminal foci of air surrounding the grafted portion ofthe proximal aorta. The collection extends superiorly to the level of the superior sternotomy wire, extending into the anterior soft tissues below the level of the clavicular heads and to the skin surface. Fluid and air also extend along the inferior previous mediastinal surgical drain tracks also extending to the anterior abdominal wall and skin. Findings are consistent with postoperative infection of the mediastinal/graft.Reactive mediastinal adenopathy is noted.2. Small pericardial effusion is noted, most significant dependently/posteriorly.3. Small right and trace left pleural effusions with adjacent atelectasis.4. Negative for abdominal aortic aneurysm. The mediastinal findings above were relayed to Dr. Vega at 15:55 hours on 05/02/[address] Cindy Britton. Signed: Priya Britton MDR eport Verified Date/Time: 05/02/2020 15:59:14 Reading Location: [facility] Diagnostic Imaging Reading Room - [facility] 1.310.12 RAD, CHEST, 1 VIEW, NON [id number] 10:13:00 Reason for exam:->post-opShould this be performed at the bedside?->Yes [facility] 1955 Sex: FFINAL REPORT INDICATION: post-op COMPARISON: None TECHNIQUE: Single frontal view of the chest. FINDINGS: Lungs and pleura: Clear lungs. No effusion.Heart and mediastinum: Normal heart size. Unremarkable mediastinal contours.Osseous structures: No acute abnormality.Other: Prior sternotomy. IMP RESSION: No acute intrathoracic abnormality. Signed: Shani Keys MDReport Verified Date/Time: 05/02/2020 10:13:59 Reading Location: [facility] Radiology Reading Room CBC W/PLT COUNT & AUTO [id number] 04:40:00 Test Item Value Reference Range Interpretation Comments WHITE BLOOD CELL COUNT (BEAKER) 11.6 K/ L 3.5-10.5 H (test code = 775) RED BLOOD CELL COUNT (BEAKER) 3.03 M/ L 3.93-5.22 L (test code = 761) HEMOGLOBIN (BEAKER) (test code = 8.8 GM/DL 11.2-15.7 L 410) HEMATOCRIT (BEAKER) (test code = 26.8 % 34.1-44.9 L 411) MEAN CORPUSCULAR VOLUME (BEAKER) 88.4 fL 79.4-94.8 (test code = 753) MEAN CORPUSCULAR HEMOGLOBIN 29.0 pg 25.6-32.2 (BEAKER) (test code = 751) MEAN CORPUSCULAR HEMOGLOBIN CONC 32.8 GM/DL 32.2-35.5 (BEAKER) (test code = 752) RED CELL DISTRIBUTION WIDTH 13.5 % 11.7-14.4 (BEAKER) (test code = 412) PLATELET COUNT (BEAKER) (test 338 K/CU MM 150-450 code = 756) MEAN PLATELET VOLUME (BEAKER) 9.9 fL 9.4-12.3 (test code = 754) NUCLEATED RED BLOOD CELLS 0 /100 WBC 0-0 (BEAKER) (test code = 413) NEUTROPHILS RELATIVE PERCENT 78 % (BEAKER) (test code = 429) LYMPHOCYTES RELATIVE PERCENT 14 % (BEAKER) (test code = 430) MONOCYTES RELATIVE PERCENT 8 % (BEAKER) (test code = 431) EOSINOPHILS RELATIVE PERCENT 1 % (BEAKER) (test code = 432) BASOPHILS RELATIVE PERCENT 0 % (BEAKER) (test code = 437) NEUTROPHILS ABSOLUTE COUNT 8.99 K/ L 1.56-6.13 H (BEAKER) (test code = 670) LYMPHOCYTES ABSOLUTE COUNT 1.57 K/ L 1.18-3.74 (BEAKER) (test code = 414) MONOCYTES ABSOLUTE COUNT (BEAKER) 0.87 K/ L 0.24-0.36 H (test code = 415) EOSINOPHILS ABSOLUTE COUNT 0.06 K/ L 0.04-0.36 (BEAKER) (test code = 416) BASOPHILS ABSOLUTE COUNT (BEAKER) 0.03 K/ L 0.01-0.08 (test code = 417) IMMATURE GRANULOCYTES-RELATIVE 1 % 0-1 PERCENT (BEAKER) (test code = 2801) BASIC METABOLIC [id number] 04:40:00 Test Item Value Reference Range Interpretation Comments SODIUM (BEAKER) 136 meq/L 136-145 (test code = 381) POTASSIUM (BEAKER) 4.0 meq/L 3.5-5.1 (test code = 379) CHLORIDE (BEAKER) 99 meq/L 98-107 (test code = 382) CO2 (BEAKER) (test 27 meq/L 22-29 code = 355) BLOOD UREA NITROGEN 10 mg/dL 7-21 (BEAKER) (test code = 354) CREATININE (BEAKER) 0.72 mg/dL 0.57-1.25 (test code = 358) GLUCOSE RANDOM 97 mg/dL 70-105 (BEAKER) (test code = 652) CALCIUM (BEAKER) 8.4 mg/dL 8.4-10.2 (test code = 697) EGFR (BEAKER) (test 82 mL/min/1.73 ESTIMA TRENTON GFR IS code = 1092) sq m NOT ACCURATE CREATININE CLEARANCE IN PREDICTING GLOMERULAR FILTRATION RATE . ESTIMATED GFR I S NOT APPLICABLE FOR DIALYSIS PATIEN TS. First Assistant Manager ID - PIMAIA [id number] 04:40:00 Test Item Value Reference Range Interpretation Comments MAGNESIUM (BEAKER) (test code = 1.8 mg/dL 1.6-2.6 627) First Assistant Manager ID - FABIAN [id number] 04:40:00 Test Item Value Reference Range Interpretation Comments PHOSPHORUS (BEAKER) (test code = 2.8 mg/dL 2.3-4.7 604) First Assistant Manager ID - FABIAN LPROTHROMBIN [id number] 04:24:00 Test Item Value Reference Range Interpretation Comments PROTIME (BEAKER) 14.0 seconds 11.9-14.2 (test code = 759) INR (BEAKER) (test 1.12 See_Comment [Automat ed message] code = 370) The system Sumerian generated this result transmitted ref erence range: <=5.90. The reference range was not used to int erpret this result as normal/abnormal . Effective 08/03/2018: PT Reference Range ChangeNew: 11.9-14.2 Previous: 11.7- 14.7RECOMMENDED COUMADIN/WARFARIN INR THERAPY RANGESSTANDARD DOSE: 2.0-3.0 Includes: PROPHYLAXIS for venous thrombosis, systemic embolization; TREATMENT for venous thrombosis and/or pulmonary embolus.HIGH RISK: Target INR is 2.5-3.5 for patients wiht mechanical heart valves.SARS-COV2/RT-PCR ([facility]) 2020-05-01 15:06:00 Test Item Value Reference Range Interpretation Comments SARS-COV2/RT-PCR (test Negative Not Detected, Negative, code = 4994837) See external report for linked test SARS-COV-[address] [facility] (test code = 1910413) Negative result for this test determines that SARS-CoV-2 RNA was not present in the specimen above the Limit of Detection (LOD). However, Negative results do not preclude SARS-CoV-2 infection and should not be used as the sole basis for treatment or patient management decisions. Negative results must be combined with clinical observations, patient history, and epidemiological information. A false negative result may occur if a specimen is improperly collected, transported or handled. A false negative result should be considered if patient's recent exposures or clinical presentation indicate that COVID-19 (SARS-CoV-2) is likely and diagnostic tests for other causes of illness are negative. Re-testing should be considered in cases of suspected false negatives.The limit of detection for this assay is 800 copies/mL.This SARS CoV-2 test is a real-time RT-PCR test intended for the qualitative detection of nucleic acid from SARS-CoV-2 in a nasopharyngeal swab specimen collected from individuals suspected of COVID-19 by their healthcare provider.This test has not been Food and Drug Administration (FDA) cleared or approved. This is a modified version of an approved Emergency Use Authorization (EUA) and is in the process of review by the FDA. Once authorized by the FDA, the issued EUA will be effective until the declaration that circumstances exist justifying the authorization of the emergency use ofin vitro diagnostic tests for detection and/or diagnosis of COVID-19 is terminated under Section 564(b)(2) of the Act or the EUA is revoked under Section 564(g) of the Act.Fact Sheet for Healthcare Prov iders:https://www.[employer]ADOW[employer]/sites/default/files/product/documents/Fact_Sheet_HC _Kqzjryefc_Zspm_QGUH-SqX-4.pdfFact Sheet for Healthcare Patients:https://www.[employer]/sites/default/files/product/docume nts/Gvqb_Srbfe_Lxwfdhks_Iata_GNNA-XwZ-1.pdfPerforming Laboratory:[facility], [place] [address]DJH, CHEST, 1 VIEW, NON [id number] 08:55:00Reason for exam:->post-opShould this be performed at the bedside?->Yes [facility] : 1955 Sex: FFINAL REPORT RAD, CHEST, 1 VIEW, NON DEPT INDICATION: post-op COMPARISON: Prior day's examFINDINGS: Portable frontal view of the chest. IMPRESSION: Support Lines: Overlying leads. Lungs and pleura: Bibasilar atelectasis. Lungs are predominantly clear. No pneumothorax.Heart and mediastinum: Normal contours.Additional findings: Prior sternotomy and surgical clips of the right axilla. Signed:Shani Keys MDReport Verified Date/Time: 05/01/2020 08:55:46 Reading Location: [facility] Radiology Reading Room C METABOLIC [id number] 04:56:00 Test Item Value Reference Range Interpretation Comments SODIUM (BEAKER) 138 meq/L 136-145 (test code = 381) POTASSIUM (BEAKER) 4.1 meq/L 3.5-5.1 (test code = 379) CHLORIDE (BEAKER) 100 meq/L 98-107 (test code = 382) CO2 (BEAKER) (test 27 meq/L 22-29 code = 355) BLOOD UREA NITROGEN 10 mg/dL 7-21 (BEAKER) (test code = 354) CREATININE (BEAKER) 0.70 mg/dL 0.57-1.25 (test code = 358) GLUCOSE RANDOM 102 mg/dL 70-105 (BEAKER) (test code = 652) CALCIUM (BEAKER) 8.7 mg/dL 8.4-10.2 (test code = 697) EGFR (BEAKER) (test 84 mL/min/1.73 ESTIMA TRENTON GFR IS code = 1092) sq m NOT ACCURATE CREATININE CLEARANCE IN PREDICTING GLOMERULAR FILTRATION RATE . ESTIMATED GFR I S NOT APPLICABLE FOR DIALYSIS PATIEN TS. First Assistant Manager ID - FABIAN [id number] 04:56:00 Test Item Value Reference Range Interpretation Comments MAGNESIUM (BEAKER) (test code = 1.6 mg/dL 1.6-2.6 627) First Assistant Manager ID - FABIAN [id number] 04:56:00 Test Item Value Reference Range Interpretation Comments PHOSPHORUS (BEAKER) (test code = 3.4 mg/dL 2.3-4.7 604) First Assistant Manager ID - FABIAN LPROTHROMBIN [id number] 04:26:00 Test Item Value Reference Range Interpretation Comments PROTIME (BEAKER) 14.2 seconds 11.9-14.2 (test code = 759) INR (BEAKER) (test 1.14 See_Comment [Automat ed message] code = 370) The system Sumerian generated this result transmitted ref erence range: <=5.90. The reference range was not used to int erpret this result as normal/abnormal . Effective 08/03/2018: PT Reference Range ChangeNew: 11.9-14.2 Previous: 11.7- 14.7RECOMMENDED COUMADIN/WARFARIN INR THERAPY RANGESSTANDARD DOSE: 2.0-3.0 Includes: PROPHYLAXIS for venous thrombosis, systemic embolization; TREATMENT for venous thrombosis and/or pulmonary embolus.HIGH RISK: Target INR is 2.5-3.5 for patients wiht mechanical heart valves.CBC W/PLT COUNT & AUTO [id number] 04:14:00 Test Item Value Reference Range Interpretation Comments WHITE BLOOD CELL COUNT (BEAKER) 10.1 K/ L 3.5-10.5 (test code = 775) RED BLOOD CELL COUNT (BEAKER) 3.35 M/ L 3.93-5.22 L (test code = 761) HEMOGLOBIN (BEAKER) (test code = 9.5 GM/DL 11.2-15.7 L 410) HEMATOCRIT (BEAKER) (test code = 30.1 % 34.1-44.9 L 411) MEAN CORPUSCULAR VOLUME (BEAKER) 89.9 fL 79.4-94.8 (test code = 753) MEAN CORPUSCULAR HEMOGLOBIN 28.4 pg 25.6-32.2 (BEAKER) (test code = 751) MEAN CORPUSCULAR HEMOGLOBIN CONC 31.6 GM/DL 32.2-35.5 L (BEAKER) (test code = 752) RED CELL DISTRIBUTION WIDTH 13.2 % 11.7-14.4 (BEAKER) (test code = 412) PLATELET COUNT (BEAKER) (test 294 K/CU MM 150-450 code = 756) MEAN PLATELET VOLUME (BEAKER) 10.0 fL 9.4-12.3 (test code = 754) NUCLEATED RED BLOOD CELLS 0 /100 WBC 0-0 (BEAKER) (test code = 413) NEUTROPHILS RELATIVE PERCENT 78 % (BEAKER) (test code = 429) LYMPHOCYTES RELATIVE PERCENT 12 % (BEAKER) (test code = 430) MONOCYTES RELATIVE PERCENT 9 % (BEAKER) (test code = 431) EOSINOPHILS RELATIVE PERCENT 0 % (BEAKER) (test code = 432) BASOPHILS RELATIVE PERCENT 0 % (BEAKER) (test code = 437) NEUTROPHILS ABSOLUTE COUNT 7.87 K/ L 1.56-6.13 H (BEAKER) (test code = 670) LYMPHOCYTES ABSOLUTE COUNT 1.24 K/ L 1.18-3.74 (BEAKER) (test code = 414) MONOCYTES ABSOLUTE COUNT (BEAKER) 0.88 K/ L 0.24-0.36 H (test code = 415) EOSINOPHILS ABSOLUTE COUNT 0.04 K/ L 0.04-0.36 (BEAKER) (test code = 416) BASOPHILS ABSOLUTE COUNT (BEAKER) 0.02 K/ L 0.01-0.08 (test code = 417) IMMATURE GRANULOCYTES-RELATIVE 0 % 0-1 PERCENT (BEAKER) (test code = 2801) BASIC METABOLIC [id number] 16:23:00 Test Item Value Reference Range Interpretation Comments SODIUM (BEAKER) 138 meq/L 136-145 (test code = 381) POTASSIUM (BEAKER) 4.1 meq/L 3.5-5.1 (test code = 379) CHLORIDE (BEAKER) 100 meq/L 98-107 (test code = 382) CO2 (BEAKER) (test 28 meq/L 22-29 code = 355) BLOOD UREA NITROGEN 11 mg/dL 7-21 (BEAKER) (test code = 354) CREATININE (BEAKER) 0.68 mg/dL 0.57-1.25 (test code = 358) GLUCOSE RANDOM 98 mg/dL 70-105 (BEAKER) (test code = 652) CALCIUM (BEAKER) 8.6 mg/dL 8.4-10.2 (test code = 697) EGFR (BEAKER) (test 87 mL/min/1.73 ESTIMA TRENTON GFR IS code = 1092) sq m NOT ACCURATE CREATININE CLEARANCE IN PREDICTING GLOMERULAR FILTRATION RATE . ESTIMATED GFR I S NOT APPLICABLE FOR DIALYSIS PATIEN TS. First Assistant Manager ID - [id number] 16:23:00 Test Item Value Reference Range Interpretation Comments MAGNESIUM (BEAKER) (test code = 1.7 mg/dL 1.6-2.6 627) First Assistant Manager ID - BSRAD, CHEST, 1 VIEW, NON [id number] 14:06:00Reason for exam:- >S/P chest tube removalShould this be performed at the bedside?->Yes [facility] 1955 Sex: FFINAL REPORT INDICATION: S/P chest tube removal COMPARISON: 04/30/2020 TECHNIQUE: Single frontal view of the chest. FINDINGS: Lungs and pleura: Clear lungs. No effusion. No significant pneumothorax.Heart and mediastinum: Normal heart size. Unremarkable mediastinal contours.Osseous structures:No acute abnormality.Other: Prior sternotomy IMPRESSION: No acute intrathoracic abnormality. Signed:Shani Keys Verified Date/Time: 04/30/2020 14:06:37 Reading Location: [facility] Reading Room RAD, CHEST, 1 VIEW, NON [id number] 08:20:00Reason for exam:->post-opShould this be performed at the bedside?->Yes [facility] : 1955 Sex: FFINAL REPORT INDICATION: post-op COMPARISON: None TECHNIQUE: Single frontal view of the chest. FINDINGS: Lungs and pleura: Clear lungs. No effusion.Heart and mediastinum: Normal heart size. Unremarkable mediastinal contours.Osseous structures: No acute abnormality.Other: Prior sternotomy. IMP RESSION: No acute intrathoracic abnormality. Signed: Shani Keys Verified Date/Time: 04/30/2020 08:20:09 Reading Location: [facility] Radiology Reading Room BASIC METABOLIC [id number] 04:54:00 Test Item Value Reference Range Interpretation Comments SODIUM (BEAKER) 140 meq/L 136-145 (test code = 381) POTASSIUM (BEAKER) 4.0 meq/L 3.5-5.1 (test code = 379) CHLORIDE (BEAKER) 105 meq/L 98-107 (test code = 382) CO2 (BEAKER) (test 24 meq/L 22-29 code = 355) BLOOD UREA NITROGEN 11 mg/dL 7-21 (BEAKER) (test code = 354) CREATININE (BEAKER) 0.68 mg/dL 0.57-1.25 (test code = 358) GLUCOSE RANDOM 140 mg/dL 70-105 H (BEAKER) (test code = 652) CALCIUM (BEAKER) 8.6 mg/dL 8.4-10.2 (test code = 697) EGFR (BEAKER) (test 87 mL/min/1.73 ESTIMA TRENTON GFR IS code = 1092) sq m NOT ACCURATE CREATININE CLEARANCE IN PREDICTING GLOMERULAR FILTRATION RATE . ESTIMATED GFR I S NOT APPLICABLE FOR DIALYSIS PATIEN TS. First Assistant Manager ID - RYLEE [id number] 04:54:00 Test Item Value Reference Range Interpretation Comments MAGNESIUM (BEAKER) (test code = 1.7 mg/dL 1.6-2.6 627) First Assistant Manager ID - RYLEE [id number] 04:54:00 Test Item Value Reference Range Interpretation Comments PHOSPHORUS (BEAKER) (test code = 3.4 mg/dL 2.3-4.7 604) First Assistant Manager ID - RYLEE MPROTHROMBIN [id number] 04:37:00 Test Item Value Reference Range Interpretation Comments PROTIME (BEAKER) 14.1 seconds 11.9-14.2 (test code = 759) INR (BEAKER) (test 1.13 See_Comment [Automat ed message] code = 370) The system Sumerian generated this result transmitted ref erence range: <=5.90. The reference range was not used to int erpret this result as normal/abnormal . Effective 08/03/2018: PT Reference Range ChangeNew: 11.9-14.2 Previous: 11.7- 14.7RECOMMENDED COUMADIN/WARFARIN INR THERAPY RANGESSTANDARD DOSE: 2.0-3.0 Includes: PROPHYLAXIS for venous thrombosis, systemic embolization; TREATMENT for venous thrombosis and/or pulmonary embolus.HIGH RISK: Target INR is 2.5-3.5 for patients wiht mechanical heart valves.CBC W/PLT COUNT & AUTO [id number] 04:28:00 Test Item Value Reference Range Interpretation Comments WHITE BLOOD CELL COUNT (BEAKER) 7.4 K/ L 3.5-10.5 (test code = 775) RED BLOOD CELL COUNT (BEAKER) 3.23 M/ L 3.93-5.22 L (test code = 761) HEMOGLOBIN (BEAKER) (test code = 9.2 GM/DL 11.2-15.7 L 410) HEMATOCRIT (BEAKER) (test code = 29.2 % 34.1-44.9 L 411) MEAN CORPUSCULAR VOLUME (BEAKER) 90.4 fL 79.4-94.8 (test code = 753) MEAN CORPUSCULAR HEMOGLOBIN 28.5 pg 25.6-32.2 (BEAKER) (test code = 751) MEAN CORPUSCULAR HEMOGLOBIN CONC 31.5 GM/DL 32.2-35.5 L (BEAKER) (test code = 752) RED CELL DISTRIBUTION WIDTH 13.2 % 11.7-14.4 (BEAKER) (test code = 412) PLATELET COUNT (BEAKER) (test 265 K/CU MM 150-450 code = 756) MEAN PLATELET VOLUME (BEAKER) 10.4 fL 9.4-12.3 (test code = 754) NUCLEATED RED BLOOD CELLS 0 /100 WBC 0-0 (BEAKER) (test code = 413) NEUTROPHILS RELATIVE PERCENT 70 % (BEAKER) (test code = 429) LYMPHOCYTES RELATIVE PERCENT 19 % (BEAKER) (test code = 430) MONOCYTES RELATIVE PERCENT 9 % (BEAKER) (test code = 431) EOSINOPHILS RELATIVE PERCENT 2 % (BEAKER) (test code = 432) BASOPHILS RELATIVE PERCENT 0 % (BEAKER) (test code = 437) NEUTROPHILS ABSOLUTE COUNT 5.21 K/ L 1.56-6.13 (BEAKER) (test code = 670) LYMPHOCYTES ABSOLUTE COUNT 1.37 K/ L 1.18-3.74 (BEAKER) (test code = 414) MONOCYTES ABSOLUTE COUNT (BEAKER) 0.66 K/ L 0.24-0.36 H (test code = 415) EOSINOPHILS ABSOLUTE COUNT 0.12 K/ L 0.04-0.36 (BEAKER) (test code = 416) BASOPHILS ABSOLUTE COUNT (BEAKER) 0.02 K/ L 0.01-0.08 (test code = 417) IMMATURE GRANULOCYTES-RELATIVE 1 % 0-1 PERCENT (BEAKER) (test code = 2801) RAD, CHEST, 1 VIEW, NON [id number] 21:22:00Reason for exam:->CP s/p type 1 dissection repairShould this be performed at the bedside?->Yes [facility] 1955 Sex: FFINAL REPORT Exam: RAD, CHEST, 1 VIEW, NON DEPTDate: 04/29/2020 9:21 PM Indication: Chest Pain Comparison: Chest radiograph earlier the same day FINDINGS: Lines/Tubes:There are multiple EKG leads and wires overlying the patient. Mediastinal drains unchanged. Lungs:The lungs are well inflated.No focal consolidation or pulmonary edema. Unchanged right basilar subsegmental atelectasis. Pleura:No pleural effusion. No pneumothorax. Heart/Mediastinum:The cardiomediastinal silhouette is normal insize and contour. Bones/Soft Tissues: No acute osseous injury. Sternotomy wires and right axillary clips unchanged. Abdomen: No free air below the diaphragm. IMPRESSION:No significant interval change. Signed: Ami Dawson MDReport Verified Date/Time: 04/29/2020 21:22:09 Reading Location: [address] Reading Room BASIC METABOLIC [id number] 18:28:00 Test Item Value Reference Range Interpretation Comments SODIUM (BEAKER) 138 meq/L 136-145 (test code = 381) POTASSIUM (BEAKER) 4.1 meq/L 3.5-5.1 (test code = 379) CHLORIDE (BEAKER) 104 meq/L 98-107 (test code = 382) CO2 (BEAKER) (test 24 meq/L 22-29 code = 355) BLOOD UREA NITROGEN 12 mg/dL 7-21 (BEAKER) (test code = 354) CREATININE (BEAKER) 0.70 mg/dL 0.57-1.25 (test code = 358) GLUCOSE RANDOM 161 mg/dL 70-105 H (BEAKER) (test code = 652) CALCIUM (BEAKER) 8.5 mg/dL 8.4-10.2 (test code = 697) EGFR (BEAKER) (test 84 mL/min/1.73 ESTIMA TRENTON GFR IS code = 1092) sq m NOT ACCURATE CREATININE CLEARANCE IN PREDICTING GLOMERULAR FILTRATION RATE . ESTIMATED GFR I S NOT APPLICABLE FOR DIALYSIS PATIEN TS. First Assistant Manager ID - [id number] 18:28:00 Test Item Value Reference Range Interpretation Comments MAGNESIUM (BEAKER) (test code = 1.9 mg/dL 1.6-2.6 627) First Assistant Manager ID - BSRAD, CHEST, 1 VIEW, NON [id number] 07:28:00Reason for exam:->post-opShould this be performed at the bedside?->Yes [facility] : 1955 Sex: FFINAL REPORT RAD, CHEST, 1 VIEW, NON DEPT INDICATION: post-op COMPARISON: Prior day's examFINDINGS: Portable frontal view of the chest. IMPRESSION: Support Lines: Right-sided central catheter tip overlies the atriocaval junction. Mediastinal drains. Lungs and pleura: Bilateral lower lobe interstitial thickening is unchanged. No pneumothorax.Heart and mediastinum: Stable contours.Additionalfindings: None. Signed: Shani Keysepdiane Verified Date/Time: 04/29/2020 07:28:19 Reading Location: [facility] Radiology Reading Room BASIC METABOLIC [id number] 04:59:00 Test Item Value Reference Range Interpretation Comments SODIUM (BEAKER) 141 meq/L 136-145 (test code = 381) POTASSIUM (BEAKER) 4.4 meq/L 3.5-5.1 (test code = 379) CHLORIDE (BEAKER) 109 meq/L 98-107 H (test code = 382) CO2 (BEAKER) (test 26 meq/L 22-29 code = 355) BLOOD UREA NITROGEN 14 mg/dL 7-21 (BEAKER) (test code = 354) CREATININE (BEAKER) 0.59 mg/dL 0.57-1.25 (test code = 358) GLUCOSE RANDOM 109 mg/dL 70-105 H (BEAKER) (test code = 652) CALCIUM (BEAKER) 8.3 mg/dL 8.4-10.2 L (test code = 697) EGFR (BEAKER) (test 103 mL/min/1.73 ESTIM ATED GFR IS code = 1092) sq m NOT ACCURATE CREATININE CLEARANCE IN PREDICTING GLOMERULAR FILTRATION RATE . ESTIMATED GFR I S NOT APPLICABLE FOR DIALYSIS PATIEN TS. First Assistant Manager ID - [id number] 04:59:00 Test Item Value Reference Range Interpretation Comments MAGNESIUM (BEAKER) (test code = 2.1 mg/dL 1.6-2.6 627) First Assistant Manager ID - [id number] 04:59:00 Test Item Value Reference Range Interpretation Comments PHOSPHORUS (BEAKER) (test code = 2.1 mg/dL 2.3-4.7 L 604) First Assistant Manager ID - ADMINPROTHROMBIN TIME/[id number] 04:59:00 Test Item Value Reference Range Interpretation Comments PROTIME (BEAKER) 14.1 seconds 11.9-14.2 (test code = 759) INR (BEAKER) (test 1.12 See_Comment [Automat ed message] code = 370) The system Sumerian generated this result transmitted ref erence range: <=5.90. The reference range was not used to int erpret this result as normal/abnormal . Effective 08/03/2018: PT Reference Range ChangeNew: 11.9-14.2 Previous: 11.7- 14.7RECOMMENDED COUMADIN/WARFARIN INR THERAPY RANGESSTANDARD DOSE: 2.0-3.0 Includes: PROPHYLAXIS for venous thrombosis, systemic embolization; TREATMENT for venous thrombosis and/or pulmonary embolus.HIGH RISK: Target INR is 2.5-3.5 for patients wiht mechanical heart valves.CBC W/PLT COUNT & AUTO [id number] 04:35:00 Test Item Value Reference Range Interpretation Comments WHITE BLOOD CELL COUNT (BEAKER) 6.4 K/ L 3.5-10.5 (test code = 775) RED BLOOD CELL COUNT (BEAKER) 2.88 M/ L 3.93-5.22 L (test code = 761) HEMOGLOBIN (BEAKER) (test code = 8.3 GM/DL 11.2-15.7 L 410) HEMATOCRIT (BEAKER) (test code = 26.7 % 34.1-44.9 L 411) MEAN CORPUSCULAR VOLUME (BEAKER) 92.7 fL 79.4-94.8 (test code = 753) MEAN CORPUSCULAR HEMOGLOBIN 28.8 pg 25.6-32.2 (BEAKER) (test code = 751) MEAN CORPUSCULAR HEMOGLOBIN CONC 31.1 GM/DL 32.2-35.5 L (BEAKER) (test code = 752) RED CELL DISTRIBUTION WIDTH 13.3 % 11.7-14.4 (BEAKER) (test code = 412) PLATELET COUNT (BEAKER) (test 219 K/CU MM 150-450 code = 756) MEAN PLATELET VOLUME (BEAKER) 10.4 fL 9.4-12.3 (test code = 754) NUCLEATED RED BLOOD CELLS 0 /100 WBC 0-0 (BEAKER) (test code = 413) NEUTROPHILS RELATIVE PERCENT 70 % (BEAKER) (test code = 429) LYMPHOCYTES RELATIVE PERCENT 16 % (BEAKER) (test code = 430) MONOCYTES RELATIVE PERCENT 10 % (BEAKER) (test code = 431) EOSINOPHILS RELATIVE PERCENT 3 % (BEAKER) (test code = 432) BASOPHILS RELATIVE PERCENT 0 % (BEAKER) (test code = 437) NEUTROPHILS ABSOLUTE COUNT 4.49 K/ L 1.56-6.13 (BEAKER) (test code = 670) LYMPHOCYTES ABSOLUTE COUNT 1.04 K/ L 1.18-3.74 L (BEAKER) (test code = 414) MONOCYTES ABSOLUTE COUNT (BEAKER) 0.61 K/ L 0.24-0.36 H (test code = 415) EOSINOPHILS ABSOLUTE COUNT 0.22 K/ L 0.04-0.36 (BEAKER) (test code = 416) BASOPHILS ABSOLUTE COUNT (BEAKER) 0.02 K/ L 0.01-0.08 (test code = 417) IMMATURE GRANULOCYTES-RELATIVE 0 % 0-1 PERCENT (BEAKER) (test code = 2801) RAD, CHEST, 1 VIEW, NON [id number] 03:48:00Reason for exam:->s/p mediastinal chest tube removalShould this be performed at the bedside?->Yes [facility] : 1955 Sex: FFINAL REPORT RAD, CHEST, 1 VIEW, NON DEPT INDICATION: s/p mediastinal chest tube removal COMPARISON: Prior day's exam FINDINGS: Portable frontal view of the chest. IMPRESSION: Support Lines: Mediastinal drains been removed. Stable right IJ sheath. Lungs and pleura: Improved retrocardiac airspace disease. Additional scattered pulmonary opacities are unchanged. No pneumothorax.Heart and mediastinum: Stable contours. Additional findings: None. Signed: Todd Orantes MDReport Verified Date/Time: 04/29/2020 03:48:12 [id number] 16:31:00 Test Item Value Reference Range Interpretation Comments MAGNESIUM (BEAKER) 2.0 mg/dL 1.6-2.6 Specimen slightly (test code = 627) hemolyzed First Assistant Manager ID - BSBASIC METABOLIC [id number] 16:31:00 Test Item Value Reference Range Interpretation Comments SODIUM (BEAKER) 144 meq/L 136-145 (test code = 381) POTASSIUM (BEAKER) 3.7 meq/L 3.5-5.1 Specimen slightly (test code = 379) hemolyzed CHLORIDE (BEAKER) 109 meq/L 98-107 H (test code = 382) CO2 (BEAKER) (test 26 meq/L 22-29 code = 355) BLOOD UREA NITROGEN 19 mg/dL 7-21 (BEAKER) (test code = 354) CREATININE (BEAKER) 0.60 mg/dL 0.57-1.25 Specimen slightly (test code = 358) hemolyzed GLUCOSE RANDOM 121 mg/dL 70-105 H (BEAKER) (test code = 652) CALCIUM (BEAKER) 8.2 mg/dL 8.4-10.2 L (test code = 697) EGFR (BEAKER) (test 101 mL/min/1.73 ESTIM ATED GFR IS code = 1092) sq m NOT ACCURATE CREATININE CLEARANCE IN PREDICTING GLOMERULAR FILTRATION RATE . ESTIMATED GFR I S NOT APPLICABLE FOR DIALYSIS PATIEN TS. First Assistant Manager ID - BSBASIC METABOLIC [id number] 05:59:00 Test Item Value Reference Range Interpretation Comments SODIUM (BEAKER) 147 meq/L 136-145 H (test code = 381) POTASSIUM (BEAKER) 4.0 meq/L 3.5-5.1 (test code = 379) CHLORIDE (BEAKER) 114 meq/L 98-107 H (test code = 382) CO2 (BEAKER) (test 26 meq/L 22-29 code = 355) BLOOD UREA NITROGEN 22 mg/dL 7-21 H (BEAKER) (test code = 354) CREATININE (BEAKER) 0.64 mg/dL 0.57-1.25 (test code = 358) GLUCOSE RANDOM 107 mg/dL 70-105 H (BEAKER) (test code = 652) CALCIUM (BEAKER) 8.2 mg/dL 8.4-10.2 L (test code = 697) EGFR (BEAKER) (test 93 mL/min/1.73 ESTIMA [place] GFR IS code = 1092) sq m NOT ACCURATE CREATININE CLEARANCE IN PREDICTING GLOMERULAR FILTRATION RATE . ESTIMATED GFR I S NOT APPLICABLE FOR DIALYSIS PATIEN TS. First Assistant Manager ID - [id number] 05:59:00 Test Item Value Reference Range Interpretation Comments MAGNESIUM (BEAKER) (test code = 2.5 mg/dL 1.6-2.6 627) First Assistant Manager ID - [id number] 05:59:00 Test Item Value Reference Range Interpretation Comments PHOSPHORUS (BEAKER) (test code = 2.1 mg/dL 2.3-4.7 L 604) First Assistant Manager ID - BSRAD, CHEST, 1 VIEW, NON [id number] 05:20:00Reason for exam:->post-opShould this be performed at the bedside?->Yes [facility] : 1955 Sex: FFINAL REPORT RAD, CHEST, 1 VIEW, NON DEPT INDICATION: post-op COMPARISON: Prior day's examFINDINGS: Portable frontal view of the chest. IMPRESSION: Support Lines: Stable. Lungs and pleura: Unchanged airspace and pleural opacities. No pneumothorax.Heart and mediastinum: Stable contours. Stabl e surgical changes.Additional findings: None. Signed: Brandi Mchugh Verified Date/Time: 04/28/2020 05:20:57 PROTHROMBIN TIME/[id number] 04:31:00 Test Item Value Reference Range Interpretation Comments PROTIME (BEAKER) 14.9 seconds 11.9-14.2 H (test code = 759) INR (BEAKER) (test 1.21 See_Comment [Automat ed message] code = 370) The system Sumerian generated this result transmitted ref erence range: <=5.90. The reference range was not used to int erpret this result as normal/abnormal . Effective 08/03/2018: PT Reference Range ChangeNew: 11.9-14.2 Previous: 11.7- 14.7RECOMMENDED COUMADIN/WARFARIN INR THERAPY RANGESSTANDARD DOSE: 2.0-3.0 Includes: PROPHYLAXIS for venous thrombosis, systemic embolization; TREATMENT for venous thrombosis and/or pulmonary embolus.HIGH RISK: Target INR is 2.5-3.5 for patients wiht mechanical heart valves.CBC W/PLT COUNT & AUTO [id number] 04:28:00 Test Item Value Reference Range Interpretation Comments WHITE BLOOD CELL COUNT (BEAKER) 6.6 K/ L 3.5-10.5 (test code = 775) RED BLOOD CELL COUNT (BEAKER) 2.69 M/ L 3.93-5.22 L (test code = 761) HEMOGLOBIN (BEAKER) (test code = 7.6 GM/DL 11.2-15.7 L 410) HEMATOCRIT (BEAKER) (test code = 25.0 % 34.1-44.9 L 411) MEAN CORPUSCULAR VOLUME (BEAKER) 92.9 fL 79.4-94.8 (test code = 753) MEAN CORPUSCULAR HEMOGLOBIN 28.3 pg 25.6-32.2 (BEAKER) (test code = 751) MEAN CORPUSCULAR HEMOGLOBIN CONC 30.4 GM/DL 32.2-35.5 L (BEAKER) (test code = 752) RED CELL DISTRIBUTION WIDTH 13.5 % 11.7-14.4 (BEAKER) (test code = 412) PLATELET COUNT (BEAKER) (test 185 K/CU MM 150-450 code = 756) MEAN PLATELET VOLUME (BEAKER) 10.4 fL 9.4-12.3 (test code = 754) NUCLEATED RED BLOOD CELLS 0 /100 WBC 0-0 (BEAKER) (test code = 413) NEUTROPHILS RELATIVE PERCENT 72 % (BEAKER) (test code = 429) LYMPHOCYTES RELATIVE PERCENT 18 % (BEAKER) (test code = 430) MONOCYTES RELATIVE PERCENT 8 % (BEAKER) (test code = 431) EOSINOPHILS RELATIVE PERCENT 2 % (BEAKER) (test code = 432) BASOPHILS RELATIVE PERCENT 0 % (BEAKER) (test code = 437) NEUTROPHILS ABSOLUTE COUNT 4.76 K/ L 1.56-6.13 (BEAKER) (test code = 670) LYMPHOCYTES ABSOLUTE COUNT 1.16 K/ L 1.18-3.74 L (BEAKER) (test code = 414) MONOCYTES ABSOLUTE COUNT (BEAKER) 0.51 K/ L 0.24-0.36 H (test code = 415) EOSINOPHILS ABSOLUTE COUNT 0.12 K/ L 0.04-0.36 (BEAKER) (test code = 416) BASOPHILS ABSOLUTE COUNT (BEAKER) 0.02 K/ L 0.01-0.08 (test code = 417) IMMATURE GRANULOCYTES-RELATIVE 0 % 0-1 PERCENT (BEAKER) (test code = 2801) [id number] 18:41:00 Test Item Value Reference Range Interpretation Comments MAGNESIUM (BEAKER) (test code = 2.4 mg/dL 1.6-2.6 627) First Assistant Manager ID - BSBASIC METABOLIC [id number] 18:41:00 Test Item Value Reference Range Interpretation Comments SODIUM (BEAKER) 146 meq/L 136-145 H (test code = 381) POTASSIUM (BEAKER) 3.4 meq/L 3.5-5.1 L (test code = 379) CHLORIDE (BEAKER) 114 meq/L 98-107 H (test code = 382) CO2 (BEAKER) (test 24 meq/L 22-29 code = 355) BLOOD UREA NITROGEN 24 mg/dL 7-21 H (BEAKER) (test code = 354) CREATININE (BEAKER) 0.71 mg/dL 0.57-1.25 (test code = 358) GLUCOSE RANDOM 132 mg/dL 70-105 H (BEAKER) (test code = 652) CALCIUM (BEAKER) 8.4 mg/dL 8.4-10.2 (test code = 697) EGFR (BEAKER) (test 83 mL/min/1.73 ESTIMA [place] GFR IS code = 1092) sq m NOT ACCURATE CREATININE CLEARANCE IN PREDICTING GLOMERULAR FILTRATION RATE . ESTIMATED GFR I S NOT APPLICABLE FOR DIALYSIS PATIEN TS. First Assistant Manager ID - BSSpecimen slightly ictericBLOOD GAS, [id number] 07:39:00 Test Item Value Reference Range Interpretation Comments PH ARTERIAL (BEAKER) (test code = 7.41 7.35-7.45 383) PCO2 ARTERIAL (BEAKER) (test code 42 mm Hg 35-45 = 384) PO2 ARTERIAL (BEAKER) (test code = 127 mm Hg 80-90 H 385) O2 SATURATION ARTERIAL (BEAKER) 98.5 % 96.0-97.0 H (test code = 386) HCO3 ARTERIAL (BEAKER) (test code 26 mmol/L 21-29 = 388) BASE EXCESS ARTERIAL (BEAKER) 1.2 mmol/L -2.0-3.0 (test code = 387) PATIENT TEMPERATURE (BEAKER) (test 36.8 code = 1818) FIO2 (BEAKER) (test code = 1819) 44.0 RAD, CHEST, 1 VIEW, NON [id number] 05:03:00Reason for exam:->post-opShould this be performed at the bedside?->Yes [facility] : 1955 Sex: FFINAL REPORT RAD, CHEST, 1 VIEW, NON DEPT INDICATION: post-op COMPARISON: Prior day's examFINDINGS: Portable frontal view of the chest. IMPRESSION: Support Lines: Stable. Lungs and pleura: Unchanged airspace and pleural opacities. No pneumothorax.Heart and mediastinum: Stable contours. Stabl e surgical changes.Additional findings: None. Signed: Brandi Mchugh Verified Date/Time: 04/27/2020 05:03:45 PROTHROMBIN TIME/[id number] 04:56:00 Test Item Value Reference Range Interpretation Comments PROTIME (BEAKER) 15.8 seconds 11.9-14.2 H (test code = 759) INR (BEAKER) (test 1.31 See_Comment [Automat ed message] code = 370) The system Sumerian generated this result transmitted ref erence range: <=5.90. The reference range was not used to int erpret this result as normal/abnormal . Effective 08/03/2018: PT Reference Range ChangeNew: 11.9-14.2 Previous: 11.7- 14.7RECOMMENDED COUMADIN/WARFARIN INR THERAPY RANGESSTANDARD DOSE: 2.0-3.0 Includes: PROPHYLAXIS for venous thrombosis, systemic embolization; TREATMENT for venous thrombosis and/or pulmonary embolus.HIGH RISK: Target INR is 2.5-3.5 for patients wiht mechanical heart valves.[id number] 04:18:00 Test Item Value Reference Range Interpretation Comments MAGNESIUM (BEAKER) (test code = 2.8 mg/dL 1.6-2.6 H 627) First Assistant Manager ID - [id number] 04:18:00 Test Item Value Reference Range Interpretation Comments PHOSPHORUS (BEAKER) (test code = 1.9 mg/dL 2.3-4.7 L 604) First Assistant Manager ID - AZBASIC METABOLIC [id number] 04:18:00 Test Item Value Reference Range Interpretation Comments SODIUM (BEAKER) 144 meq/L 136-145 (test code = 381) POTASSIUM (BEAKER) 3.9 meq/L 3.5-5.1 (test code = 379) CHLORIDE (BEAKER) 113 meq/L 98-107 H (test code = 382) CO2 (BEAKER) (test 26 meq/L 22-29 code = 355) BLOOD UREA NITROGEN 25 mg/dL 7-21 H (BEAKER) (test code = 354) CREATININE (BEAKER) 0.75 mg/dL 0.57-1.25 (test code = 358) GLUCOSE RANDOM 118 mg/dL 70-105 H (BEAKER) (test code = 652) CALCIUM (BEAKER) 8.6 mg/dL 8.4-10.2 (test code = 697) EGFR (BEAKER) (test 78 mL/min/1.73 ESTIMA [place] GFR IS code = 1092) sq m NOT ACCURATE CREATININE CLEARANCE IN PREDICTING GLOMERULAR FILTRATION RATE . ESTIMATED GFR I S NOT APPLICABLE FOR DIALYSIS PATIEN TS. First Assistant Manager ID - AZSpecimen slightly ictericCBC W/PLT COUNT & AUTO DIFFERENTIAL 2020-04-27 04:11:00 Test Item Value Reference Range Interpretation Comments WHITE BLOOD CELL COUNT (BEAKER) 9.5 K/ L 3.5-10.5 (test code = 775) RED BLOOD CELL COUNT (BEAKER) 2.88 M/ L 3.93-5.22 L (test code = 761) HEMOGLOBIN (BEAKER) (test code = 8.3 GM/DL 11.2-15.7 L 410) HEMATOCRIT (BEAKER) (test code = 27.1 % 34.1-44.9 L 411) MEAN CORPUSCULAR VOLUME (BEAKER) 94.1 fL 79.4-94.8 (test code = 753) MEAN CORPUSCULAR HEMOGLOBIN 28.8 pg 25.6-32.2 (BEAKER) (test code = 751) MEAN CORPUSCULAR HEMOGLOBIN CONC 30.6 GM/DL 32.2-35.5 L (BEAKER) (test code = 752) RED CELL DISTRIBUTION WIDTH 13.7 % 11.7-14.4 (BEAKER) (test code = 412) PLATELET COUNT (BEAKER) (test 180 K/CU MM 150-450 code = 756) MEAN PLATELET VOLUME (BEAKER) 10.6 fL 9.4-12.3 (test code = 754) NUCLEATED RED BLOOD CELLS 0 /100 WBC 0-0 (BEAKER) (test code = 413) NEUTROPHILS RELATIVE PERCENT 82 % (BEAKER) (test code = 429) LYMPHOCYTES RELATIVE PERCENT 9 % (BEAKER) (test code = 430) MONOCYTES RELATIVE PERCENT 7 % (BEAKER) (test code = 431) EOSINOPHILS RELATIVE PERCENT 0 % (BEAKER) (test code = 432) BASOPHILS RELATIVE PERCENT 0 % (BEAKER) (test code = 437) NEUTROPHILS ABSOLUTE COUNT 7.82 K/ L 1.56-6.13 H (BEAKER) (test code = 670) LYMPHOCYTES ABSOLUTE COUNT 0.87 K/ L 1.18-3.74 L (BEAKER) (test code = 414) MONOCYTES ABSOLUTE COUNT (BEAKER) 0.69 K/ L 0.24-0.36 H (test code = 415) EOSINOPHILS ABSOLUTE COUNT 0.04 K/ L 0.04-0.36 (BEAKER) (test code = 416) BASOPHILS ABSOLUTE COUNT (BEAKER) 0.03 K/ L 0.01-0.08 (test code = 417) IMMATURE GRANULOCYTES-RELATIVE 1 % 0-1 PERCENT (BEAKER) (test code = 2801) TISSUE [id number] 17:41:00Surgical Pathology Report Case: [id number] Authorizing Provider: Christian Suarez, Collected:04/24/2020 03:06 PM Ordering Location: [facility] CV Recovery Room 2 Received: 04/24/2020 04:32 PM Pat hologist: Keith Hargrove MD Specimen: Aorta, ASCENDING AORTIC ANEURYSM AORTA, ASCENDING, ANEURYSMECTOMY:ACUTE MEDIAL DISSECTIONSEVERE CYSTIC MUCOID MEDIAL DEGENERATIONPERIADVENTITIAL HEMORRHAGE, GRANULATION TISSUE, AND ACUTE AND CHRONIC INFLAMMATION Signing Pathologist Direct Phone Line: [phone] of aorta, unspecified portion of aorta AortaReceived fresh labeled with the patient's name, accession number and "ascending aortic aneurysm" is a 7.5 x 6.0 x 1.1 cm aggregate of aortic tissue. The tunica intima is smooth and devoid of plaque. The tunica adventitia is hemorrhagic, shaggy and partially detached. Sectioning reveals a hemorrhagic, lamellated, fibrous cut surface. Truck Sales Manager sections are submitted inA1-A2.BUSHRA Hammer, HT (ASCP)PERFORMEDBASIC METABOLIC [id number] 03:31:00 Test Item Value Reference Range Interpretation Comments SODIUM (BEAKER) 147 meq/L 136-145 H (test code = 381) POTASSIUM (BEAKER) 4.0 meq/L 3.5-5.1 (test code = 379) CHLORIDE (BEAKER) 115 meq/L 98-107 H (test code = 382) CO2 (BEAKER) (test 23 meq/L 22-29 code = 355) BLOOD UREA NITROGEN 25 mg/dL 7-21 H (BEAKER) (test code = 354) CREATININE (BEAKER) 1.11 mg/dL 0.57-1.25 (test code = 358) GLUCOSE RANDOM 111 mg/dL 70-105 H (BEAKER) (test code = 652) CALCIUM (BEAKER) 8.0 mg/dL 8.4-10.2 L (test code = 697) EGFR (BEAKER) (test 49 mL/min/1.73 ESTIMA [place] GFR IS code = 1092) sq m NOT ACCURATE CREATININE CLEARANCE IN PREDICTING GLOMERULAR FILTRATION RATE . ESTIMATED GFR I S NOT APPLICABLE FOR DIALYSIS PATIEN TS. First Assistant Manager ID - [id number] 03:31:00 Test Item Value Reference Range Interpretation Comments MAGNESIUM (BEAKER) (test code = 2.7 mg/dL 1.6-2.6 H 627) First Assistant Manager ID - [id number] 03:31:00 Test Item Value Reference Range Interpretation Comments PHOSPHORUS (BEAKER) (test code = 3.3 mg/dL 2.3-4.7 604) First Assistant Manager ID - EDASIPROTHROMBIN TIME/[id number] 03:00:00 Test Item Value Reference Range Interpretation Comments PROTIME (BEAKER) 17.9 seconds 11.9-14.2 H (test code = 759) INR (BEAKER) (test 1.52 See_Comment [Automat ed message] code = 370) The system Sumerian generated this result transmitted ref erence range: <=5.90. The reference range was not used to int erpret this result as normal/abnormal . Effective 08/03/2018: PT Reference Range ChangeNew: 11.9-14.2 Previous: 11.7- 14.7RECOMMENDED COUMADIN/WARFARIN INR THERAPY RANGESSTANDARD DOSE: 2.0-3.0 Includes: PROPHYLAXIS for venous thrombosis, systemic embolization; TREATMENT for venous thrombosis and/or pulmonary embolus.HIGH RISK: Target INR is 2.5-3.5 for patients wiht mechanical heart valves.CBC W/PLT COUNT & AUTO [id number] 02:51:00 Test Item Value Reference Range Interpretation Comments WHITE BLOOD CELL COUNT (BEAKER) 10.9 K/ L 3.5-10.5 H (test code = 775) RED BLOOD CELL COUNT (BEAKER) 2.83 M/ L 3.93-5.22 L (test code = 761) HEMOGLOBIN (BEAKER) (test code = 8.3 GM/DL 11.2-15.7 L 410) HEMATOCRIT (BEAKER) (test code = 25.7 % 34.1-44.9 L 411) MEAN CORPUSCULAR VOLUME (BEAKER) 90.8 fL 79.4-94.8 (test code = 753) MEAN CORPUSCULAR HEMOGLOBIN 29.3 pg 25.6-32.2 (BEAKER) (test code = 751) MEAN CORPUSCULAR HEMOGLOBIN CONC 32.3 GM/DL 32.2-35.5 (BEAKER) (test code = 752) RED CELL DISTRIBUTION WIDTH 13.6 % 11.7-14.4 (BEAKER) (test code = 412) PLATELET COUNT (BEAKER) (test 153 K/CU MM 150-450 code = 756) MEAN PLATELET VOLUME (BEAKER) 10.8 fL 9.4-12.3 (test code = 754) NUCLEATED RED BLOOD CELLS 0 /100 WBC 0-0 (BEAKER) (test code = 413) NEUTROPHILS RELATIVE PERCENT 78 % (BEAKER) (test code = 429) LYMPHOCYTES RELATIVE PERCENT 12 % (BEAKER) (test code = 430) MONOCYTES RELATIVE PERCENT 9 % (BEAKER) (test code = 431) EOSINOPHILS RELATIVE PERCENT 0 % (BEAKER) (test code = 432) BASOPHILS RELATIVE PERCENT 0 % (BEAKER) (test code = 437) NEUTROPHILS ABSOLUTE COUNT 8.46 K/ L 1.56-6.13 H (BEAKER) (test code = 670) LYMPHOCYTES ABSOLUTE COUNT 1.35 K/ L 1.18-3.74 (BEAKER) (test code = 414) MONOCYTES ABSOLUTE COUNT (BEAKER) 0.98 K/ L 0.24-0.36 H (test code = 415) EOSINOPHILS ABSOLUTE COUNT 0.01 K/ L 0.04-0.36 L (BEAKER) (test code = 416) BASOPHILS ABSOLUTE COUNT (BEAKER) 0.03 K/ L 0.01-0.08 (test code = 417) IMMATURE GRANULOCYTES-RELATIVE 1 % 0-1 PERCENT (BEAKER) (test code = 2801) RAD, CHEST, 1 VIEW, NON [id number] 01:50:00Reason for exam:->post-opShould this be performed at the bedside?->Yes [facility] : 1955 Sex: FFINAL REPORT RAD, CHEST, 1 VIEW, NON DEPT INDICATION: post-op COMPARISON: Prior day's examFINDINGS: Portable frontal view of the chest. IMPRESSION: Support Lines: Interval removal the previously seen right IJ [place]- Debra catheter now with a central venous catheter over the SVC. Otherwise uncha nged support apparatus. Lungs and pleura: Unchanged airspace and pleural opacities. No pneumothorax.Heart and mediastinum: Stable contours. Stable surgical changes.Additional findings: None. Signed: Brandi Mchugh Verified Date/Time: 04/26/2020 01:50:53 POCT-GLUCOSE [id number] 16:15:00 Test Item Value Reference Range Interpretation Comments POC-GLUCOSE METER 128 mg/dL 70-110 H : TESTED A T [facility] 6720 (BEAKER) (test code = [facility], 1538) [id number]: First Assistant Manager/Techni samara ID = [id number] for Zulema Wilson BLOOD GAS, [id number] 12:44:00 Test Item Value Reference Range Interpretation Comments PH ARTERIAL (BEAKER) (test code = 7.38 7.35-7.45 383) PCO2 ARTERIAL (BEAKER) (test code 46 mm Hg 35-45 H = 384) PO2 ARTERIAL (BEAKER) (test code = 122 mm Hg 80-90 H 385) O2 SATURATION ARTERIAL (BEAKER) 98.3 % 96.0-97.0 H (test code = 386) HCO3 ARTERIAL (BEAKER) (test code 27 mmol/L 21-29 = 388) BASE EXCESS ARTERIAL (BEAKER) 1.4 mmol/L -2.0-3.0 (test code = 387) PATIENT TEMPERATURE (BEAKER) (test 37.2 code = 1818) FIO2 (BEAKER) (test code = 1819) 36.0 POCT-GLUCOSE [id number] 09:00:00 Test Item Value Reference Range Interpretation Comments POC-GLUCOSE METER 128 mg/dL 70-110 H : TESTED A T [facility] 6720 (BEAKER) (test code = [facility], 1538) [id number]: First Assistant Manager/Techni samara ID = [id number] for Zulema Wilson RAD, CHEST, 1 VIEW, NON [id number] 08:08:00Reason for exam:->intubated post op cardiac patientShould this be performed at the bedside?->Yes [facility] 1955 Sex: FFINAL REPORT Chest, one view HISTORY: Respiratory failure Comparison: 04/24/2020 Findings: Lungs: The lungs are clear. Heart: Normal in size. Pleura: No pleural effusion or pneumothorax. Bones: Unremarkable. Lines/tubes: Interval removal of previous endotracheal and nasogastric tubes. Otherwise, no significant change. Signed: Vance Kent Verified Date/Time: 04/25/2020 08:08:36 Reading Location: [facility] Reading Room CBC W/PLT COUNT & AUTO [id number] 04:44:00 Test Item Value Reference Range Interpretation Comments WHITE BLOOD CELL COUNT (BEAKER) 8.9 K/ L 3.5-10.5 (test code = 775) RED BLOOD CELL COUNT (BEAKER) 3.14 M/ L 3.93-5.22 L (test code = 761) HEMOGLOBIN (BEAKER) (test code = 9.0 GM/DL 11.2-15.7 L 410) HEMATOCRIT (BEAKER) (test code = 27.6 % 34.1-44.9 L 411) MEAN CORPUSCULAR VOLUME (BEAKER) 87.9 fL 79.4-94.8 (test code = 753) MEAN CORPUSCULAR HEMOGLOBIN 28.7 pg 25.6-32.2 (BEAKER) (test code = 751) MEAN CORPUSCULAR HEMOGLOBIN CONC 32.6 GM/DL 32.2-35.5 (BEAKER) (test code = 752) RED CELL DISTRIBUTION WIDTH 13.1 % 11.7-14.4 (BEAKER) (test code = 412) PLATELET COUNT (BEAKER) (test 189 K/CU MM 150-450 code = 756) MEAN PLATELET VOLUME (BEAKER) 10.2 fL 9.4-12.3 (test code = 754) NUCLEATED RED BLOOD CELLS 0 /100 WBC 0-0 (BEAKER) (test code = 413) NEUTROPHILS RELATIVE PERCENT 86 % (BEAKER) (test code = 429) LYMPHOCYTES RELATIVE PERCENT 6 % (BEAKER) (test code = 430) MONOCYTES RELATIVE PERCENT 7 % (BEAKER) (test code = 431) EOSINOPHILS RELATIVE PERCENT 0 % (BEAKER) (test code = 432) BASOPHILS RELATIVE PERCENT 0 % (BEAKER) (test code = 437) NEUTROPHILS ABSOLUTE COUNT 7.63 K/ L 1.56-6.13 H (BEAKER) (test code = 670) LYMPHOCYTES ABSOLUTE COUNT 0.57 K/ L 1.18-3.74 L (BEAKER) (test code = 414) MONOCYTES ABSOLUTE COUNT (BEAKER) 0.65 K/ L 0.24-0.36 H (test code = 415) EOSINOPHILS ABSOLUTE COUNT 0.01 K/ L 0.04-0.36 L (BEAKER) (test code = 416) BASOPHILS ABSOLUTE COUNT (BEAKER) 0.01 K/ L 0.01-0.08 (test code = 417) IMMATURE GRANULOCYTES-RELATIVE 0 % 0-1 PERCENT (BEAKER) (test code = 2801) PROTHROMBIN [id number] 04:25:00 Test Item Value Reference Range Interpretation Comments PROTIME (BEAKER) 15.8 seconds 11.9-14.2 H (test code = 759) INR (BEAKER) (test 1.30 See_Comment [Automat ed message] code = 370) The system [employer] generated this result transmitted ref erence range: <=5.90. The reference range was not used to int erpret this result as normal/abnormal . Effective 08/03/2018: PT Reference Range ChangeNew: 11.9-14.2 Previous: 11.7- 14.7RECOMMENDED COUMADIN/WARFARIN INR THERAPY RANGESSTANDARD DOSE: 2.0-3.0 Includes: PROPHYLAXIS for venous thrombosis, systemic embolization; TREATMENT for venous thrombosis and/or pulmonary embolus.HIGH RISK: Target INR is 2.5-3.5 for patients wiht mechanical heart valves.BASIC METABOLIC [id number] 04:18:00 Test Item Value Reference Range Interpretation Comments SODIUM (BEAKER) 148 meq/L 136-145 H (test code = 381) POTASSIUM (BEAKER) 3.3 meq/L 3.5-5.1 L (test code = 379) CHLORIDE (BEAKER) 111 meq/L 98-107 H (test code = 382) CO2 (BEAKER) (test 26 meq/L 22-29 code = 355) BLOOD UREA NITROGEN 17 mg/dL 7-21 (BEAKER) (test code = 354) CREATININE (BEAKER) 1.06 mg/dL 0.57-1.25 (test code = 358) GLUCOSE RANDOM 143 mg/dL 70-105 H (BEAKER) (test code = 652) CALCIUM (BEAKER) 8.4 mg/dL 8.4-10.2 (test code = 697) EGFR (BEAKER) (test 52 mL/min/1.73 ESTIMA [place] GFR IS code = 1092) sq m NOT ACCURATE CREATININE CLEARANCE IN PREDICTING GLOMERULAR FILTRATION RATE . ESTIMATED GFR I S NOT APPLICABLE FOR DIALYSIS PATIEN TS. First Assistant Manager ID - RYLEE [id number] 04:18:00 Test Item Value Reference Range Interpretation Comments MAGNESIUM (BEAKER) (test code = 2.7 mg/dL 1.6-2.6 H 627) First Assistant Manager ID - RYLEE [id number] 04:18:00 Test Item Value Reference Range Interpretation Comments PHOSPHORUS (BEAKER) (test code = 2.4 mg/dL 2.3-4.7 604) First Assistant Manager ID - RYLEE MBLOOD GAS, [id number] 04:02:00 Test Item Value Reference Range Interpretation Comments PH VENOUS (BEAKER) (test code = 7.45 7.32-7.42 H 701) PCO2 VENOUS (BEAKER) (test code = 42 mm Hg 41-51 755) PO2 VENOUS (BEAKER) (test code = 42 mm Hg 25-40 H 702) O2 SATURATION VENOUS (BEAKER) 73.7 % 40.0-70.0 H (test code = 703) HCO3 VENOUS (BEAKER) (test code = 28 mmol/L 21-29 705) BASE EXCESS VENOUS (BEAKER) (test 4.2 mmol/L -2.0-3.0 H code = 704) PATIENT TEMPERATURE (BEAKER) (test 38.9 code = 1818) FIO2 (BEAKER) (test code = 1819) 40.0 POCT-GLUCOSE [id number] 03:26:00 Test Item Value Reference Range Interpretation Comments POC-GLUCOSE METER 136 mg/dL 70-110 H : TESTED A T BSC 6720 (BEAKER) (test code = VIKASH SAENZ [place], 1538) [address]: First Assistant Manager/Techni samara ID = [id number] for RO EVELIA SANTANA [id number] 22:08:00 Test Item Value Reference Range Interpretation Comments FIBRINOGEN LEVEL (BEAKER) (test 428 mg/dl 225-434 code = 658) RAD, CHEST, 1 VIEW, NON [id number] 20:35:00Reason for exam:->Post-opShould this be performed at the bedside?->Yes [facility] : 1955 Sex: FFINAL REPORT AP view of the chest dated 04/24/2020 CLINICAL INFORMATION: Post-op Comment: Patient is status post sternotomy. Endotracheal tube, mediastinal tube, nasogastric tube, [place]-Debra catheter are present. No pneumothorax is seen. Heart is normal in size. Pulmonary vasculature is unremar kable. Lungs are clear. IMPRESSION: Satisfactory postoperative chest. Signed: Guerline Roman Verified Date/Time: 04/24/2020 20:35:52 Reading Location: [address] Consult Reading Room [id number] 19:17:00 Test Item Value Reference Range Interpretation Comments PARTIAL THROMBOPLASTIN TIME 34.8 seconds 22.5-36.0 (BEAKER) (test code = 760) PROTHROMBIN TIME/[id number] 19:16:00 Test Item Value Reference Range Interpretation Comments PROTIME (BEAKER) 15.9 seconds 11.9-14.2 H (test code = 759) INR (BEAKER) (test 1.31 See_Comment [Automat ed message] code = 370) The system Sumerian generated this result transmitted ref erence range: <=5.90. The reference range was not used to int erpret this result as normal/abnormal . Effective 08/03/2018: PT Reference Range ChangeNew: 11.9-14.2 Previous: 11.7- 14.7RECOMMENDED COUMADIN/WARFARIN INR THERAPY RANGESSTANDARD DOSE: 2.0-3.0 Includes: PROPHYLAXIS for venous thrombosis, systemic embolization; TREATMENT for venous thrombosis and/or pulmonary embolus.HIGH RISK: Target INR is 2.5-3.5 for patients wiht mechanical heart valves.CBC W/PLT COUNT & AUTO [id number] 19:04:00 Test Item Value Reference Range Interpretation Comments WHITE BLOOD CELL COUNT (BEAKER) 7.1 K/ L 3.5-10.5 (test code = 775) RED BLOOD CELL COUNT (BEAKER) 2.85 M/ L 3.93-5.22 L (test code = 761) HEMOGLOBIN (BEAKER) (test code = 8.3 GM/DL 11.2-15.7 L 410) HEMATOCRIT (BEAKER) (test code = 25.1 % 34.1-44.9 L 411) MEAN CORPUSCULAR VOLUME (BEAKER) 88.1 fL 79.4-94.8 (test code = 753) MEAN CORPUSCULAR HEMOGLOBIN 29.1 pg 25.6-32.2 (BEAKER) (test code = 751) MEAN CORPUSCULAR HEMOGLOBIN CONC 33.1 GM/DL 32.2-35.5 (BEAKER) (test code = 752) RED CELL DISTRIBUTION WIDTH 12.8 % 11.7-14.4 (BEAKER) (test code = 412) PLATELET COUNT (BEAKER) (test 176 K/CU MM 150-450 code = 756) MEAN PLATELET VOLUME (BEAKER) 9.9 fL 9.4-12.3 (test code = 754) NUCLEATED RED BLOOD CELLS 0 /100 WBC 0-0 (BEAKER) (test code = 413) NEUTROPHILS RELATIVE PERCENT 80 % (BEAKER) (test code = 429) LYMPHOCYTES RELATIVE PERCENT 14 % (BEAKER) (test code = 430) MONOCYTES RELATIVE PERCENT 5 % (BEAKER) (test code = 431) EOSINOPHILS RELATIVE PERCENT 0 % (BEAKER) (test code = 432) BASOPHILS RELATIVE PERCENT 0 % (BEAKER) (test code = 437) NEUTROPHILS ABSOLUTE COUNT 5.73 K/ L 1.56-6.13 (BEAKER) (test code = 670) LYMPHOCYTES ABSOLUTE COUNT 1.00 K/ L 1.18-3.74 L (BEAKER) (test code = 414) MONOCYTES ABSOLUTE COUNT (BEAKER) 0.34 K/ L 0.24-0.36 (test code = 415) EOSINOPHILS ABSOLUTE COUNT 0.02 K/ L 0.04-0.36 L (BEAKER) (test code = 416) BASOPHILS ABSOLUTE COUNT (BEAKER) 0.01 K/ L 0.01-0.08 (test code = 417) IMMATURE GRANULOCYTES-RELATIVE 0 % 0-1 PERCENT (BEAKER) (test code = 2801) [id number] 19:04:00 Test Item Value Reference Range Interpretation Comments MAGNESIUM (BEAKER) 3.4 mg/dL 1.6-2.6 H Specimen slightly (test code = 627) hemolyzed First Assistant Manager ID - [id number] 19:04:00 Test Item Value Reference Range Interpretation Comments PHOSPHORUS (BEAKER) 3.3 mg/dL 2.3-4.7 Specimen slightly (test code = 604) hemolyzed First Assistant Manager ID - BSBASIC METABOLIC [id number] 19:04:00 Test Item Value Reference Range Interpretation Comments SODIUM (BEAKER) 145 meq/L 136-145 (test code = 381) POTASSIUM (BEAKER) 3.8 meq/L 3.5-5.1 Specimen slightly (test code = 379) hemolyzed CHLORIDE (BEAKER) 108 meq/L 98-107 H (test code = 382) CO2 (BEAKER) (test 29 meq/L 22-29 code = 355) BLOOD UREA NITROGEN 17 mg/dL 7-21 (BEAKER) (test code = 354) CREATININE (BEAKER) 0.95 mg/dL 0.57-1.25 Specimen slightly (test code = 358) hemolyzed GLUCOSE RANDOM 152 mg/dL 70-105 H (BEAKER) (test code = 652) CALCIUM (BEAKER) 8.8 mg/dL 8.4-10.2 (test code = 697) EGFR (BEAKER) (test 59 mL/min/1.73 ESTIMA [place] GFR IS code = 1092) sq m NOT ACCURATE CREATININE CLEARANCE IN PREDICTING GLOMERULAR FILTRATION RATE . ESTIMATED GFR I S NOT APPLICABLE FOR DIALYSIS PATIEN TS. First Assistant Manager ID - BSLACTIC ACID, [id number] 18:58:00 Test Item Value Reference Range Interpretation Comments LACTATE BLOOD 1.5 mmol/L 0.5-2.2 Specimen sligh tly ARTERIAL (2) (BEAKER) hemoly zed (test code = 2874) First Assistant Manager ID - BSSODIUM NA-STAT [id number] 18:41:00 Test Item Value Reference Range Interpretation Comments SODIUM (BEAKER) (test code = 381) 143 meq/L 136-145 POTASSIUM-STAT [id number] 18:41:00 Test Item Value Reference Range Interpretation Comments POTASSIUM (BEAKER) (test code = 3.7 meq/L 3.6-5.5 379) OXYGEN SATURATION, [id number] 18:41:00 Test Item Value Reference Range Interpretation Comments O2 SATURATION (MEASURED) (BEAKER) 81.5 % (test code = 1455) BLOOD GAS, [id number] 18:41:00 Test Item Value Reference Range Interpretation Comments PH ARTERIAL (BEAKER) (test code = 7.40 7.35-7.45 383) PCO2 ARTERIAL (BEAKER) (test code 46 mm Hg 35-45 H = 384) PO2 ARTERIAL (BEAKER) (test code = 196 mm Hg 80-90 H 385) O2 SATURATION ARTERIAL (BEAKER) 99.4 % 96.0-97.0 H (test code = 386) HCO3 ARTERIAL (BEAKER) (test code 29 mmol/L 21-29 = 388) BASE EXCESS ARTERIAL (BEAKER) 2.7 mmol/L -2.0-3.0 (test code = 387) PATIENT TEMPERATURE (BEAKER) (test 34.7 code = 1818) FIO2 (BEAKER) (test code = 1819) 60.0 GLUCOSE-STAT [id number] 18:41:00 Test Item Value Reference Range Interpretation Comments GLUCOSE RANDOM (BEAKER) (test code 145 mg/dL 70-110 H = 652) HGB/HCT (H&H) - STAT [id number] 18:41:00 Test Item Value Reference Range Interpretation Comments HEMOGLOBIN (BEAKER) (test code = 9.0 GM/DL 12.0-15.0 L 410) HEMATOCRIT (BEAKER) (test code = 26.0 % 36.0-45.0 L 411) BLOOD GAS, [id number] 17:45:00 Test Item Value Reference Range Interpretation Comments PH ARTERIAL (BEAKER) (test code = 7.39 7.35-7.45 383) PCO2 ARTERIAL (BEAKER) (test code 44 mm Hg 35-45 = 384) PO2 ARTERIAL (BEAKER) (test code = 357 mm Hg 80-90 H 385) O2 SATURATION ARTERIAL (BEAKER) 99.8 % 96.0-97.0 H (test code = 386) HCO3 ARTERIAL (BEAKER) (test code 26 mmol/L 21-29 = 388) BASE EXCESS ARTERIAL (BEAKER) 0.5 mmol/L -2.0-3.0 (test code = 387) PATIENT TEMPERATURE (BEAKER) (test 34.4 code = 1818) FIO2 (BEAKER) (test code = 1819) 100.0 GLUCOSE-STAT [id number] 17:45:00 Test Item Value Reference Range Interpretation Comments GLUCOSE RANDOM (BEAKER) (test code 149 mg/dL 70-110 H = 652) HGB/HCT (H&H) - STAT [id number] 17:45:00 Test Item Value Reference Range Interpretation Comments HEMOGLOBIN (BEAKER) (test code = 8.7 GM/DL 12.0-15.0 L 410) HEMATOCRIT (BEAKER) (test code = 26.0 % 36.0-45.0 L 411) CALCIUM, [id number] 17:45:00 Test Item Value Reference Range Interpretation Comments CALCIUM IONIZED (BEAKER) (test 1.05 mmol/L 1.12-1.27 L code = 698) PH, BLOOD (BEAKER) (test code = 7.35 1810) SODIUM NA-STAT [id number] 17:44:00 Test Item Value Reference Range Interpretation Comments SODIUM (BEAKER) (test code = 381) 140 meq/L 136-145 POTASSIUM-STAT [id number] 17:44:00 Test Item Value Reference Range Interpretation Comments POTASSIUM (BEAKER) (test code = 3.8 meq/L 3.6-5.5 379) [id number] 17:12:00 Test Item Value Reference Range Interpretation Comments ACTIVATED CLOTTING TIME > sec : 74 -137 seconds, (BEAKER) (test code = Baseli ne: TESTED AT 441) [address], [facility] 30: First Assistant Manager/Techni samara ID = [id number] for Sa ciro, Amir [id number] 17:12:00 Test Item Value Reference Range Interpretation Comments ACTIVATED CLOTTING TIME > sec : 74 -137 seconds, (BEAKER) (test code = Baseli ne: TESTED AT 441) [address], [facility] 30: First Assistant Manager/Techni samara ID = [id number] for Sa ciro, Amir [id number] 17:11:00 Test Item Value Reference Range Interpretation Comments ACTIVATED CLOTTING TIME 125 sec : 74 -137 seconds, (BEAKER) (test code = Baseli ne: TESTED AT 441) [address], [address] 30: First Assistant Manager/Techni samara ID = [id number] for Sa ciro, Amir [id number] 17:11:00 Test Item Value Reference Range Interpretation Comments ACTIVATED CLOTTING TIME > sec : 74 -137 seconds, (BEAKER) (test code = Baseli ne: TESTED AT 441) [address], [address] 30: First Assistant Manager/Techni samara ID = [id number] for Sa ciro, Amir [id number] 17:11:00 Test Item Value Reference Range Interpretation Comments ACTIVATED CLOTTING TIME 819 sec : 74 -137 seconds, (BEAKER) (test code = Baseli ne: TESTED AT 441) [address], [facility] 30: First Assistant Manager/Techni samara ID = [id number] for Sa ciro, Amir PROTHROMBIN [id number] 16:42:00 Test Item Value Reference Range Interpretation Comments PROTIME (BEAKER) 21.6 seconds 11.9-14.2 H (test code = 759) INR (BEAKER) (test 1.93 See_Comment [Automat ed message] code = 370) The system Sumerian generated this result transmitted ref erence range: <=5.90. The reference range was not used to int erpret this result as normal/abnormal . Effective 08/03/2018: PT Reference Range ChangeNew: 11.9-14.2 Previous: 11.7- 14.7RECOMMENDED COUMADIN/WARFARIN INR THERAPY RANGESSTANDARD DOSE: 2.0-3.0 Includes: PROPHYLAXIS for venous thrombosis, systemic embolization; TREATMENT for venous thrombosis and/or pulmonary embolus.HIGH RISK: Target INR is 2.5-3.5 for patients wiht mechanical heart valves.[id number] 16:42:00 Test Item Value Reference Range Interpretation Comments FIBRINOGEN LEVEL (BEAKER) (test 234 mg/dl 225-434 code = 658) [id number] 16:42:00 Test Item Value Reference Range Interpretation Comments PARTIAL THROMBOPLASTIN TIME 39.3 seconds 22.5-36.0 H (BEAKER) (test code = 760) PLATELET [id number] 16:38:00 Test Item Value Reference Range Interpretation Comments PLATELET COUNT (BEAKER) (test code 86 K/CU MM 150-450 L = 756) First Assistant Manager ID - [id number] ID - [id number] ID - [id number] GAS, ARTERIAL 2020-04-24 16:19:00 Test Item Value Reference Range Interpretation Comments PH ARTERIAL (BEAKER) (test code = 7.41 7.35-7.45 383) PCO2 ARTERIAL (BEAKER) (test code 38 mm Hg 35-45 = 384) PO2 ARTERIAL (BEAKER) (test code 421 mm Hg 80-90 H = 385) O2 SATURATION ARTERIAL (BEAKER) 99.8 % 96.0-97.0 H (test code = 386) HCO3 ARTERIAL (BEAKER) (test code 24 mmol/L 21-29 = 388) BASE EXCESS ARTERIAL (BEAKER) -0.7 mmol/L -2.0-3.0 (test code = 387) PATIENT TEMPERATURE (BEAKER) 36.1 (test code = 1818) FIO2 (BEAKER) (test code = 1819) 100.0 GLUCOSE-STAT [id number] 16:19:00 Test Item Value Reference Range Interpretation Comments GLUCOSE RANDOM (BEAKER) (test code 155 mg/dL 70-110 H = 652) HGB/HCT (H&H) - STAT [id number] 16:19:00 Test Item Value Reference Range Interpretation Comments HEMOGLOBIN (BEAKER) (test code = 7.8 GM/DL 12.0-15.0 L 410) HEMATOCRIT (BEAKER) (test code = 23.0 % 36.0-45.0 L 411) CALCIUM, [id number] 16:19:00 Test Item Value Reference Range Interpretation Comments CALCIUM IONIZED (BEAKER) (test 1.09 mmol/L 1.12-1.27 L code = 698) PH, BLOOD (BEAKER) (test code = 7.40 1810) SODIUM NA-STAT [id number] 16:17:00 Test Item Value Reference Range Interpretation Comments SODIUM (BEAKER) (test code = 381) 138 meq/L 136-145 POTASSIUM-STAT [id number] 16:17:00 Test Item Value Reference Range Interpretation Comments POTASSIUM (BEAKER) (test code = 4.9 meq/L 3.6-5.5 379) BLOOD GAS, [id number] 15:27:00 Test Item Value Reference Range Interpretation Comments PH ARTERIAL (BEAKER) (test code = 7.34 7.35-7.45 L 383) PCO2 ARTERIAL (BEAKER) (test code 38 mm Hg 35-45 = 384) PO2 ARTERIAL (BEAKER) (test code 296 mm Hg 80-90 H = 385) O2 SATURATION ARTERIAL (BEAKER) 99.7 % 96.0-97.0 H (test code = 386) HCO3 ARTERIAL (BEAKER) (test code 21 mmol/L 21-29 = 388) BASE EXCESS ARTERIAL (BEAKER) -5.5 mmol/L -2.0-3.0 L (test code = 387) PATIENT TEMPERATURE (BEAKER) 34.5 (test code = 1818) FIO2 (BEAKER) (test code = 1819) 75.0 GLUCOSE-STAT [id number] 15:27:00 Test Item Value Reference Range Interpretation Comments GLUCOSE RANDOM (BEAKER) (test code 136 mg/dL 70-110 H = 652) HGB/HCT (H&H) - STAT [id number] 15:27:00 Test Item Value Reference Range Interpretation Comments HEMOGLOBIN (BEAKER) (test code = 7.7 GM/DL 12.0-15.0 L 410) HEMATOCRIT (BEAKER) (test code = 23.0 % 36.0-45.0 L 411) SODIUM NA-STAT [id number] 15:26:00 Test Item Value Reference Range Interpretation Comments SODIUM (BEAKER) (test code = 381) 138 meq/L 136-145 POTASSIUM-STAT [id number] 15:26:00 Test Item Value Reference Range Interpretation Comments POTASSIUM (BEAKER) (test code = 5.0 meq/L 3.6-5.5 379) SODIUM NA-STAT [id number] 14:57:00 Test Item Value Reference Range Interpretation Comments SODIUM (BEAKER) (test code = 381) 136 meq/L 136-145 POTASSIUM-STAT [id number] 14:57:00 Test Item Value Reference Range Interpretation Comments POTASSIUM (BEAKER) (test code = 5.4 meq/L 3.6-5.5 379) BLOOD GAS, [id number] 14:57:00 Test Item Value Reference Range Interpretation Comments PH ARTERIAL (BEAKER) (test code = 7.41 7.35-7.45 383) PCO2 ARTERIAL (BEAKER) (test code 28 mm Hg 35-45 L = 384) PO2 ARTERIAL (BEAKER) (test code 319 mm Hg 80-90 H = 385) O2 SATURATION ARTERIAL (BEAKER) 99.7 % 96.0-97.0 H (test code = 386) HCO3 ARTERIAL (BEAKER) (test code 22 mmol/L 21-29 = 388) BASE EXCESS ARTERIAL (BEAKER) -6.2 mmol/L -2.0-3.0 L (test code = 387) PATIENT TEMPERATURE (BEAKER) 21.2 (test code = 1818) FIO2 (BEAKER) (test code = 1819) 65.0 GLUCOSE-STAT [id number] 14:57:00 Test Item Value Reference Range Interpretation Comments GLUCOSE RANDOM (BEAKER) (test code 118 mg/dL 70-110 H = 652) HGB/HCT (H&H) - STAT [id number] 14:57:00 Test Item Value Reference Range Interpretation Comments HEMOGLOBIN (BEAKER) (test code = 8.6 GM/DL 12.0-15.0 L 410) HEMATOCRIT (BEAKER) (test code = 25.0 % 36.0-45.0 L 411) SODIUM NA-STAT [id number] 13:53:00 Test Item Value Reference Range Interpretation Comments SODIUM (BEAKER) (test code = 381) 136 meq/L 136-145 BLOOD GAS, [id number] 13:53:00 Test Item Value Reference Range Interpretation Comments PH ARTERIAL (BEAKER) (test code = 7.47 7.35-7.45 H 383) PCO2 ARTERIAL (BEAKER) (test code 30 mm Hg 35-45 L = 384) PO2 ARTERIAL (BEAKER) (test code 375 mm Hg 80-90 H = 385) O2 SATURATION ARTERIAL (BEAKER) 99.8 % 96.0-97.0 H (test code = 386) HCO3 ARTERIAL (BEAKER) (test code 24 mmol/L 21-29 = 388) BASE EXCESS ARTERIAL (BEAKER) -2.3 mmol/L -2.0-3.0 L (test code = 387) PATIENT TEMPERATURE (BEAKER) 26.8 (test code = 1818) FIO2 (BEAKER) (test code = 1819) 70.0 POTASSIUM-STAT [id number] 13:53:00 Test Item Value Reference Range Interpretation Comments POTASSIUM (BEAKER) (test code = 3.4 meq/L 3.6-5.5 L 379) GLUCOSE-STAT [id number] 13:53:00 Test Item Value Reference Range Interpretation Comments GLUCOSE RANDOM (BEAKER) (test code 119 mg/dL 70-110 H = 652) HGB/HCT (H&H) - STAT [id number] 13:53:00 Test Item Value Reference Range Interpretation Comments HEMOGLOBIN (BEAKER) (test code = 7.9 GM/DL 12.0-15.0 L 410) HEMATOCRIT (BEAKER) (test code = 23.0 % 36.0-45.0 L 411) BASIC METABOLIC [id number] 12:37:00 Test Item Value Reference Range Interpretation Comments SODIUM (BEAKER) 141 meq/L 136-145 (test code = 381) POTASSIUM (BEAKER) 3.7 meq/L 3.5-5.1 (test code = 379) CHLORIDE (BEAKER) 103 meq/L 98-107 (test code = 382) CO2 (BEAKER) (test 28 meq/L 22-29 code = 355) BLOOD UREA NITROGEN 20 mg/dL 7-21 (BEAKER) (test code = 354) CREATININE (BEAKER) 0.93 mg/dL 0.57-1.25 (test code = 358) GLUCOSE RANDOM 111 mg/dL 70-105 H (BEAKER) (test code = 652) CALCIUM (BEAKER) 8.9 mg/dL 8.4-10.2 (test code = 697) EGFR (BEAKER) (test 61 mL/min/1.73 ESTIMA TR[place]ON GFR IS code = 1092) sq m NOT ACCURATE CREATININE CLEARANCE IN PREDICTING GLOMERULAR FILTRATION RATE . ESTIMATED GFR I S NOT APPLICABLE FOR DIALYSIS PATIEN TS. First Assistant Manager ID - [id number] 12:37:00 Test Item Value Reference Range Interpretation Comments MAGNESIUM (BEAKER) (test code = 2.3 mg/dL 1.6-2.6 627) First Assistant Manager ID - [id number] 12:37:00 Test Item Value Reference Range Interpretation Comments PHOSPHORUS (BEAKER) (test code = 3.7 mg/dL 2.3-4.7 604) First Assistant Manager ID - BSLACTIC ACID, [id number] 12:29:00 Test Item Value Reference Range Interpretation Comments LACTATE BLOOD 2.9 mmol/L 0.5-2.2 H Specimen sligh tly ARTERIAL (2) (BEAKER) hemoly zed (test code = 2874) First Assistant Manager ID - BSBLOOD GAS, [id number] 12:26:00 Test Item Value Reference Range Interpretation Comments PH ARTERIAL (BEAKER) (test code = 7.37 7.35-7.45 383) PCO2 ARTERIAL (BEAKER) (test code 46 mm Hg 35-45 H = 384) PO2 ARTERIAL (BEAKER) (test code = 385 mm Hg 80-90 H 385) O2 SATURATION ARTERIAL (BEAKER) 99.8 % 96.0-97.0 H (test code = 386) HCO3 ARTERIAL (BEAKER) (test code 26 mmol/L 21-29 = 388) BASE EXCESS ARTERIAL (BEAKER) 0.2 mmol/L -2.0-3.0 (test code = 387) PATIENT TEMPERATURE (BEAKER) (test 36.5 code = 1818) FIO2 (BEAKER) (test code = 1819) 100.0 GLUCOSE-STAT [id number] 12:26:00 Test Item Value Reference Range Interpretation Comments GLUCOSE RANDOM (BEAKER) (test code 118 mg/dL 70-110 H = 652) HGB/HCT (H&H) - STAT [id number] 12:26:00 Test Item Value Reference Range Interpretation Comments HEMOGLOBIN (BEAKER) (test code = 12.0 GM/DL 12.0-15.0 410) HEMATOCRIT (BEAKER) (test code = 35.0 % 36.0-45.0 L 411) CALCIUM, [id number] 12:26:00 Test Item Value Reference Range Interpretation Comments CALCIUM IONIZED (BEAKER) (test 1.10 mmol/L 1.12-1.27 L code = 698) PH, BLOOD (BEAKER) (test code = 7.37 1810) SODIUM NA-STAT [id number] 12:25:00 Test Item Value Reference Range Interpretation Comments SODIUM (BEAKER) (test code = 381) 138 meq/L 136-145 POTASSIUM-STAT [id number] 12:25:00 Test Item Value Reference Range Interpretation Comments POTASSIUM (BEAKER) (test code = 3.7 meq/L 3.6-5.5 379) PROTHROMBIN [id number] 12:05:00 Test Item Value Reference Range Interpretation Comments PROTIME (BEAKER) 14.3 seconds 11.9-14.2 H (test code = 759) INR (BEAKER) (test 1.14 See_Comment [Automat ed message] code = 370) The system Sumerian generated this result transmitted ref erence range: <=5.90. The reference range was not used to int erpret this result as normal/abnormal . Effective 08/03/2018: PT Reference Range ChangeNew: 11.9-14.2 Previous: 11.7- 14.7RECOMMENDED COUMADIN/WARFARIN INR THERAPY RANGESSTANDARD DOSE: 2.0-3.0 Includes: PROPHYLAXIS for venous thrombosis, systemic embolization; TREATMENT for venous thrombosis and/or pulmonary embolus.HIGH RISK: Target INR is 2.5-3.5 for patients wiht mechanical heart valves.CBC W/PLT COUNT & AUTO [id number] 11:49:00 Test Item Value Reference Range Interpretation Comments WHITE BLOOD CELL COUNT (BEAKER) 10.3 K/ L 3.5-10.5 (test code = 775) RED BLOOD CELL COUNT (BEAKER) 4.35 M/ L 3.93-5.22 (test code = 761) HEMOGLOBIN (BEAKER) (test code = 12.6 GM/DL 11.2-15.7 410) HEMATOCRIT (BEAKER) (test code = 37.6 % 34.1-44.9 411) MEAN CORPUSCULAR VOLUME (BEAKER) 86.4 fL 79.4-94.8 (test code = 753) MEAN CORPUSCULAR HEMOGLOBIN 29.0 pg 25.6-32.2 (BEAKER) (test code = 751) MEAN CORPUSCULAR HEMOGLOBIN CONC 33.5 GM/DL 32.2-35.5 (BEAKER) (test code = 752) RED CELL DISTRIBUTION WIDTH 12.7 % 11.7-14.4 (BEAKER) (test code = 412) PLATELET COUNT (BEAKER) (test 272 K/CU MM 150-450 code = 756) MEAN PLATELET VOLUME (BEAKER) 9.7 fL 9.4-12.3 (test code = 754) NUCLEATED RED BLOOD CELLS 0 /100 WBC 0-0 (BEAKER) (test code = 413) NEUTROPHILS RELATIVE PERCENT 76 % (BEAKER) (test code = 429) LYMPHOCYTES RELATIVE PERCENT 15 % (BEAKER) (test code = 430) MONOCYTES RELATIVE PERCENT 8 % (BEAKER) (test code = 431) EOSINOPHILS RELATIVE PERCENT 0 % (BEAKER) (test code = 432) BASOPHILS RELATIVE PERCENT 0 % (BEAKER) (test code = 437) NEUTROPHILS ABSOLUTE COUNT 7.77 K/ L 1.56-6.13 H (BEAKER) (test code = 670) LYMPHOCYTES ABSOLUTE COUNT 1.57 K/ L 1.18-3.74 (BEAKER) (test code = 414) MONOCYTES ABSOLUTE COUNT (BEAKER) 0.84 K/ L 0.24-0.36 H (test code = 415) EOSINOPHILS ABSOLUTE COUNT 0.02 K/ L 0.04-0.36 L (BEAKER) (test code = 416) BASOPHILS ABSOLUTE COUNT (BEAKER) 0.03 K/ L 0.01-0.08 (test code = 417) IMMATURE GRANULOCYTES-RELATIVE 0 % 0-1 PERCENT (BEAKER) (test code = 2801)
--- NOTE | 2022-01-12 21:15 | EDPHYS ---
Physician Documentation [facility] Name: Chantell Castillo Age: 66 yrs Sex: Female : 1955 Arrival Date: 01/12/2022 Time: 20:01 Bed DIS1 Private MD: ED Physician Syed Britton HPI: 01/12 20:29 This 66 yrs old Female presents to ER via Ambulatory with complaints of Sore Throat, kb Ear Pain. 20:30 The patient or guardian reports cough, that is intermittent, described as mild. Onset: kb The symptoms/episode began/occurred 2 day(s) ago. Severity of symptoms: At their worst the symptoms were mild, in the emergency department the symptoms are unchanged. Modifying factors: The symptoms are alleviated by nothing, the symptoms are aggravated by nothing. Associated signs and symptoms: Pertinent positives: sore throat. The patient has not experienced similar symptoms in the past. The patient has not recently seen a physician. Historical: - Allergies: 20:04 NKDA; ld1 - PMHx: 20:04 CHF; COPD; GERD; Hypertension; ld1 - PSHx: 20:04 AAA repair; ld1 - Immunization history:: Adult Immunizations up to date, Client reports receiving the 2nd dose of the Covid vaccine. - Social history:: Smoking status: Patient reports the use of cigarette tobacco products, smokes one pack cigarettes per day. Patient/guardian denies using alcohol. ROS: 20:29 Constitutional: Negative for fever, chills, and weight loss. kb 20:29 ENT: Positive for ear pain, sinus congestion, sore throat. 20:29 Respiratory: Positive for 20:29 All other systems are negative. Exam: 20:29 Constitutional: This is a well developed, well nourished patient who is awake, alert, kb and in no acute distress. Head/Face: Normocephalic, atraumatic. ENT: Moist Mucous membranes Cardiovascular: Regular rate and rhythm with a normal S1 and S2. No gallops, murmurs, or rubs. No pulse deficits. Respiratory: Respirations even and unlabored. No increased work of breathing. Talking in full sentences Abdomen/GI: Soft, non-tender. No distention Skin: Warm, dry with normal turgor. Normal color. MS/ Extremity: Pulses equal, no cyanosis. Neurovascular intact. Full, normal range of motion. Neuro: Awake and alert, GCS 15, oriented to person, place, time, and situation. Moves all extremities. Normal gait. Psych: Awake, alert, with orientation to person, place and time. Behavior, mood, and affect are within normal limits. Vital Signs: 20:03 BP 167 / 88; Pulse 84; Resp 18; Temp 97.9(TE); Pulse Ox 99% on R/A; Weight 83.91 kg; ld1 Height 5 ft. 3 in. (160.02 cm); Pain 7/10; 20:03 Body Mass Index 32.77 (83.91 kg, 160.02 cm) ld1 MDM: 20:06 Patient medically screened. kb 20:29 Data reviewed: vital signs, nurses notes. Data interpreted: Pulse oximetry: on room air kb is 99 %. Interpretation: normal. 21:14 Counseling: I had a detailed discussion with the patient and/or guardian regarding: the kb historical points, exam findings, and any diagnostic results supporting the discharge/admit diagnosis, lab results, the need for outpatient follow up, a family practitioner, to return to the emergency department if symptoms worsen or persist or if there are any questions or concerns that arise at home. 01/12 20:06 Order name: Flu; Complete Time: 21:08 kb 01/12 20:06 Order name: Strep; Complete Time: 21:08 kb 01/12 20:06 Order name: COVID-19 SARS RT PCR (Document "Date of Onset" if Symptomatic); Complete kb Time: 21:10 01/12 21:06 Order name: Throat Culture EDMS Administered Medications: No medications were administered Disposition Summary: 01/12/22 21:15 Discharge Ordered Location: Home kb Condition: Stable kb Diagnosis - Acute upper respiratory infection, unspecified kb Followup: kb - With: Emergency Department - When: As needed - Reason: Worsening of condition Followup: kb - With: Private Physician - When: 2 - 3 days - Reason: Recheck today's complaints, Continuance of care, Re-evaluation by your physician Discharge Instructions: - Discharge Summary Sheet kb - Upper Respiratory Infection, Adult, [id number] kb - Viral Respiratory Infection, [id number] kb Forms: - Medication Reconciliation Form kb - Thank You Letter kb - Antibiotic Education kb - Prescription Opioid Use kb Signatures: Dispatcher [facility] Esperanza Shukla, P[employer]IVEN [employer] MAKER-C POWER DRIVEN BRUSH MAKER-Divina Fernandez, RN RN ld1
--- NOTE | 2022-01-12 21:15 | ER ---
Nurse's Notes [facility] Name: Chantell Castillo Age: 66 yrs Sex: Female : 1955 Arrival Date: 01/12/2022 Time: 20:01 Bed DIS1 Private MD: Diagnosis: Acute upper respiratory infection, unspecified Presentation: 01/12 20:03 Chief complaint: Patient states: Sore throat - spitting up yellow sputum. Left ear pain ld1 and congestion. Coronavirus screen: At this time, the client does not indicate any symptoms associated with coronavirus-19. Ebola Screen: No symptoms or risks identified at this time. Initial Sepsis Screen: Does the patient meet any 2 criteria? No. Patient's initial sepsis screen is negative. Does the patient have a suspected source of infection? No. Patient's initial sepsis screen is negative. Risk Assessment: Do you want to hurt yourself or someone else? Patient reports no desire to harm self or others. Onset of symptoms was January 12, 2022 at 20:04. 20:03 Method Of Arrival: Ambulatory ld1 20:03 Acuity: WES 4 ld1 Triage Assessment: 20:04 General: Appears in no apparent distress. comfortable, Behavior is calm, cooperative, ld1 appropriate for age. Pain: Complains of pain in left ear Pain does not radiate. Pain currently is 6 out of 10 on a pain scale. EENT: No signs and/or symptoms were reported regarding the EENT system. Reports nasal congestion. Neuro: Level of Consciousness is awake, alert, obeys commands, Oriented to person, place, time, situation, Appropriate for age. Cardiovascular: Capillary refill < 3 seconds Patient's skin is warm and dry. Respiratory: Reports cough that is productive, Airway is patent Respiratory effort is even, unlabored. GI: Abdomen is flat, non-distended. : No signs and/or symptoms were reported regarding the genitourinary system. Historical: - Allergies: 20:04 NKDA; ld1 - PMHx: 20:04 CHF; COPD; GERD; Hypertension; ld1 - PSHx: 20:04 AAA repair; ld1 - Immunization history:: Adult Immunizations up to date, Client reports receiving the 2nd dose of the Covid vaccine. - Social history:: Smoking status: Patient reports the use of cigarette tobacco products, smokes one pack cigarettes per day. Patient/guardian denies using alcohol. Assessment: 21:32 Reassessment: pt not seen by this RN discharged by provider. bb Vital Signs: 20:03 BP 167 / 88; Pulse 84; Resp 18; Temp 97.9(TE); Pulse Ox 99% on R/A; Weight 83.91 kg; ld1 Height 5 ft. 3 in. (160.02 cm); Pain 7/10; 20:03 Body Mass Index 32.77 (83.91 kg, 160.02 cm) ld1 ED Course: 20:01 Patient arrived in ED. bp1 20:01 Esper[facility] Casarez [facility]C [facility] kb 20:01 Syed Britton MD is Attending Physician. kb 20:04 Triage completed. ld1 20:04 Arm band placed on right wrist. ld1 Administered Medications: No medications were administered Outcome: 21:15 Discharge ordered by MD. kb 21:32 Patient left the ED. bb Signatures: Esperanza Casarez FNP-C FNP-Ckb Ballard, Brenda, RN RN bb Gisselle Weiss Lauren, KURT RN ld1 Corrections: (The following items were deleted from the chart) 20:06 20:03 BP 183 / 107; Pulse 84bpm; Resp 18bpm; Pulse Ox 99% RA; Temp 97.9F Temporal; ld1 83.91 kg; Height 5 ft. 3 in.; BMI: 32.7; Pain 7/10; ld1
[2022-01-12 22:50] VITALS: BP 167/88; TEMP 97.9; O2SAT 99
== END 2022-01-12 21:32 | disposition home or self-care (01) ==
LOC: ER 19:55
DX: J06.9 Acute upper respiratory infection, unspecified (principal); F17.210 Nicotine dependence, cigarettes, uncomplicated; I50.9 Heart failure, unspecified; Z20.822 Contact with and (suspected) exposure to COVID-19
CPT/HCPCS: 87070; 87081; 87804 ×2; 99281; U0003

== ENCOUNTER → 2023-03-06 | Emergency (ER) | payer MEDICARE, OTHER ==
[~2023-03-06] MED LIST: ALBUTEROL 2.5 MG/3 ML NEB SOL ONE; AZITHROMYCIN 250 MG TAB ONE; IPRATROPIUM BROM 0.5MG/2.5ML ONE; ONDANSETRON 4 MG (ODT) TAB ONE; predniSONE 20 MG TAB ONE
[2023-03-06 21:39] LABS: SARS-CoV-2 Antigen Rapid Res Negative (Negative)
--- NOTE | 2023-03-06 21:45 | RAD REPORT ---
EXAM DESCRIPTION: Bang Single View03/06/2023 9:35 pm CLINICAL HISTORY: Cough COMPARISON: 2020 FINDINGS: The lungs appear clear of acute infiltrate. The heart is normal size. Postsurgical changes involve the chest IMPRESSION: No acute abnormalities displayed
--- NOTE | 2023-03-06 23:02 | EDPHYS ---
Physician Documentation [facility] Name: Chantell Castillo Age: 68 yrs Sex: Female : 1955 Arrival Date: 03/06/2023 Time: 20:20 Bed 12 Private MD: ED Physician Jani Grace HPI: 03/06 21:27 This 68 yrs old Female presents to ER via Ambulatory with complaints of ec2 Breathing Difficulty, Shortness Of Breath. 21:27 Patient arrives today for URI signs and symptoms. Patient reports that she is a smoker, ec2 states she been having frequent cough. Patient reports decreased p.o. intake and general feelings of fatigue. Patient reports some shortness of breath as well. Patient reports that she is supposed to be on multiple inhalers however has not been taking them.. Historical: - Allergies: 20:55 NKDA; hb - PMHx: 20:55 CHF; COPD; GERD; Hypertension; hb - PSHx: 20:55 AAA repair; hb - Immunization history:: Adult Immunizations up to date. - Social history:: Smoking status: Patient denies any tobacco usage or history of. ROS: 21:27 Constitutional: as per hpi ec2 Exam: 21:27 Constitutional: GEN: NAD Head: atraumatic Eyes: EOMI Ears: External ears are ec2 normal. CV: regular rate LUNGS: no respiratory distress, occasional scattered wheeze noted throughout all lung harris. ABD: non-distended SKIN: no evidence of rashes MSK: no evidence of trauma NEURO: moves all extremities equally Vital Signs: 20:56 BP 142 / 75; Pulse 100; Resp 18; Temp 99.1; Pulse Ox 94% ; Weight 79.38 kg; Height 5 hb ft. 3 in. ; 22:30 BP 138 / 79; Pulse 95; Resp 20; Pulse Ox 96% on R/A; Pain 0/10; pf1 20:56 Body Mass Index 31.00 (79.38 kg, 160.02 cm) hb 22:30 Pain Scale: Adult pf1 MDM: 20:54 Patient medically screened. ec2 21:27 Data reviewed: vital signs. ED course: Patient arrives today for evaluation of URI ec2 symptoms. Examination remarkable for well-appearing nontoxic individual is otherwise in no acute distress with a reassuring cardiopulmonary examination, does have scattered wheezes noted occasionally throughout all lung harris. Will obtain viral swabs, treated patient with steroids, azithromycin and DuoNeb. Suspect a COPD exacerbation secondary to possible viral infection given the patient's symptoms. Will suspicion for pneumonia given lack of focal lung sounds, low suspicion for bacteremia given lack of general systemic symptoms. . 21:54 ED course: Chest x-ray shows no acute intrathoracic process. Influenza screen is ec2 negative. . 23:01 ED course: On reassessment patient is well-appearing in no acute distress, reports ec2 improvement in her symptoms. Will discharge home, diagnosed with COPD exacerbation, prescribed steroids and azithromycin. Return precautions given.. 03/06 21:02 Order name: SARS RAPID; Complete Time: 21:44 ec2 03/06 21:02 Order name: Influenza Screen (a \T\ B); Complete Time: 21:53 ec2 03/06 21:02 Order name: CXR XRAY; Complete Time: 21:53 ec2 Administered Medications: 22:20 Drug: predniSONE PO 40 mg PO once Route: PO; pf1 23:00 Follow up: Response: No adverse reaction pf1 22:20 Drug: Ondansetron PO 4 mg PO once Route: PO; pf1 23:00 Follow up: Response: No adverse reaction; Marked relief of symptoms pf1 22:20 Drug: AZITHromycin PO 500 mg PO once Route: PO; pf1 23:00 Follow up: Response: No adverse reaction pf1 22:47 Drug: DuoNeb Nebulize (3:1) (2.5 mg - 0.5 mg) 3 ml Nebulizer once Route: Nebulizer; pf1 23:00 Follow up: Response: No adverse reaction; Marked relief of symptoms pf1 Disposition Summary: 03/06/23 23:01 Discharge Ordered Notes: Location: Home ec2 Condition: Stable ec2 Diagnosis - COPD/ Chronic obstructive pulmonary disease with (acute) exacerbation ec2 Followup: ec2 - With: Private Physician - When: - Reason: Recheck today's complaints Discharge Instructions: - Discharge Summary Sheet ec2 - Chronic Obstructive Pulmonary Disease Exacerbation ec2 Forms: - Medication Reconciliation Form ec2 - Thank You Letter ec2 - Antibiotic Education ec2 - Prescription Opioid Use ec2 - Patient Portal Instructions ec2 - Leadership Thank You Letter ec2 Prescriptions: - albuterol sulfate 90 mcg/actuation Inhalation HFA Aerosol Inhaler - inhale 4 puff INHALATION route every 4 hours for up to 3 doses; 90 microgram; ec2 Refills: 0, Product Selection Permitted - azithromycin 250 mg Oral tablet - take 1 tablet ORAL route daily for 4 days; 4 tablet; Refills: 0, Product ec2 Selection Permitted - Prednisone 20 mg Oral Tablet - take 2 tablets ORAL route once daily for 5 days; 10 tablet; Refills: 0, Product ec2 Selection Permitted Signatures: Dispatcher [employer] Ruchi Guthrie RN RN Jackeline Khoury RN RN pf1 Jani Grace MD MD ec2
--- NOTE | 2023-03-06 23:02 | ER ---
Nurse's Notes [facility] Name: Chantell Castillo Age: 68 yrs Sex: Female : 1955 Arrival Date: 03/06/2023 Time: 20:20 Bed 12 Private MD: Diagnosis: COPD/ Chronic obstructive pulmonary disease with (acute) exacerbation Presentation: 03/06 20:56 Chief complaint: Patient states: FLU LIKE S/S x2 DAYS. Coronavirus screen: At this hb time, the client does not indicate any symptoms associated with coronavirus-19. Ebola Screen: No symptoms or risks identified at this time. Initial Sepsis Screen: Does the patient meet any 2 criteria? No. Patient's initial sepsis screen is negative. Does the patient have a suspected source of infection? No. Patient's initial sepsis screen is negative. Risk Assessment: Do you want to hurt yourself or someone else? Patient reports no desire to harm self or others. Onset of symptoms is unknown. 20:56 Method Of Arrival: Ambulatory hb 20:56 Acuity: WES 4 hb Triage Assessment: 20:56 General: Appears ill, Behavior is calm, cooperative, appropriate for age. Pain: Denies hb pain. Respiratory: Reports cough that is Onset: The symptoms/episode began/occurred yesterday, the patient has mild shortness of breath. Historical: - Allergies: 20:55 NKDA; hb - PMHx: 20:55 CHF; COPD; GERD; Hypertension; hb - PSHx: 20:55 AAA repair; hb - Immunization history:: Adult Immunizations up to date. - Social history:: Smoking status: Patient denies any tobacco usage or history of. Screenin:45 [facility] ED Fall Risk Assessment (Adult) History of falling in the last 3 months, pf1 including since admission No falls in past 3 months (0 pts) Confusion or Disorientation No (0 pts) Intoxicated or Sedated No (0 pts) Impaired Gait No (0 pts) Mobility Assist Device Used No (0 pt) Altered Elimination No (0 pt) Score/Fall Risk Level 0 - 2 = Low Risk Oriented to surroundings, Maintained a safe environment, Educated pt \T\ family on fall prevention, incl call for assistance when getting out of bed, Assessed \T\ reinforced patient's understanding of fall precautions, Provided non-skid footwear, Hourly rounding (assess needs \T\ fall precautionary measures) done, Used ambulatory aids as needed (educated on \T\ assisted with), Used gait belt as appropriate. 21:45 Abuse screen: Denies threats or abuse. Nutritional screening: No deficits noted. pf1 Tuberculosis screening: No symptoms or risk factors identified. Assessment: 21:45 General: Appears in no apparent distress. comfortable, well groomed, well developed, pf1 Behavior is calm, cooperative, appropriate for age, quiet. 21:45 Pain: Denies pain. Neuro: No deficits noted. Level of Consciousness is awake, alert, pf1 obeys commands, Oriented to person, place, time, situation. Cardiovascular: Reports shortness of breath, Capillary refill < 3 seconds Patient's skin is warm and dry. Respiratory: Reports shortness of breath cough that is Airway is patent Respiratory effort is even, unlabored, Respiratory pattern is regular, symmetrical. GI: No deficits noted. No signs and/or symptoms were reported involving the gastrointestinal system. : No deficits noted. No signs and/or symptoms were reported regarding the genitourinary system. EENT: No deficits noted. No signs and/or symptoms were reported regarding the EENT system. Derm: No deficits noted. No signs and/or symptoms reported regarding the dermatologic system. 22:45 Reassessment: Patient appears in no apparent distress at this time. Patient and/or pf1 family updated on plan of care and expected duration. Pain level reassessed. Patient is alert, oriented x 3, equal unlabored respirations, skin warm/dry/pink. Patient states feeling better. Patient states symptoms have improved. Vital Signs: 20:56 BP 142 / 75; Pulse 100; Resp 18; Temp 99.1; Pulse Ox 94% ; Weight 79.38 kg; Height 5 hb ft. 3 in. ; 22:30 BP 138 / 79; Pulse 95; Resp 20; Pulse Ox 96% on R/A; Pain 0/10; pf1 20:56 Body Mass Index 31.00 (79.38 kg, 160.02 cm) hb 22:30 Pain Scale: Adult pf1 ED Course: 20:21 Patient arrived in ED. ag3 20:52 Jani Grace MD is Attending Physician. ec2 20:57 Triage completed. hb 20:57 Arm band placed on. hb 21:36 CXR XRAY In Process Unspecified. EDMS 21:45 Patient has correct armband on for positive identification. Bed in low position. Call pf1 light in reach. 22:45 No provider procedures requiring assistance completed. Patient did not have IV access pf1 during this emergency room visit. 23:14 Provided Education on: prescriptions. pf1 Administered Medications: 22:20 Drug: predniSONE PO 40 mg PO once Route: PO; pf1 23:00 Follow up: Response: No adverse reaction pf1 22:20 Drug: Ondansetron PO 4 mg PO once Route: PO; pf1 23:00 Follow up: Response: No adverse reaction; Marked relief of symptoms pf1 22:20 Drug: AZITHromycin PO 500 mg PO once Route: PO; pf1 23:00 Follow up: Response: No adverse reaction pf1 22:47 Drug: DuoNeb Nebulize (3:1) (2.5 mg - 0.5 mg) 3 ml Nebulizer once Route: Nebulizer; pf1 23:00 Follow up: Response: No adverse reaction; Marked relief of symptoms pf1 Medication: 23:14 VIS not applicable for this client. pf1 Outcome: 23:01 Discharge ordered by . ec2 23:14 Patient left the ED. pf1 23:14 Discharged to home ambulatory, with family, pf1 23:14 Condition: improved pf1 23:14 Discharge instructions given to patient, Instructed on discharge instructions, follow up and referral plans. Demonstrated understanding of instructions, follow-up care, medications, Prescriptions given X 3, Signatures: Dispatcher [employer] EDDE Ruchi Salinas RN RN Nelia Robin 3 Jackeline Khoury RN RN pf1 Jani Grace MD MD ec2
[2023-03-07 01:16] VITALS: BP 142/75; TEMP 99.1; O2SAT 94
== END ==
LOC: ER 20:20
DX: J44.1 Chronic obstructive pulmonary disease with (acute) exacerbation (principal); I50.9 Heart failure, unspecified; I10 Essential (primary) hypertension; Z11.52 Encounter for screening for COVID-19
CPT/HCPCS: 36415; 87804 ×2; 71045; 94640; 99284; 87811; J7512; Q0162; J7613; J7644

== ENCOUNTER → 2023-03-15 | Emergency (ER) | payer MEDICARE, OTHER ==
[~2023-03-15] MED LIST changes: -AZITHROMYCIN 250 MG TAB ONE; +CODEINE 30MG/APAP 300MG TAB ONE; +LEVALBUTEROL 1.25 MG/3 ML NEB ONE; +LORazepam 2 MG/ML VIAL ONE; +MAGNESIUM SULFATE 1 gm IVPB 1 GM/100 ML BAG IV ONE; -ONDANSETRON 4 MG (ODT) TAB ONE; +PROMETHAZINE 25 MG TABLET ONE; +dexAMETHasone 10 MG/ML VIAL ONE; -predniSONE 20 MG TAB ONE
--- NOTE | 2023-03-15 16:33 | RAD REPORT ---
EXAM DESCRIPTION: RAD - Chest Pa And Lat (2 Views) - 03/15/2023 4:14 pm CLINICAL HISTORY: COUGH COMPARISON: Chest Single View dated 03/06/2023; Chest Single View dated 01/02/2021; Chest Single Vie w dated 04/23/2020; Chest Single View dated 03/20/2016 TECHNIQUE: PA and lateral views of the chest were obtained. FINDINGS: The lungs are clear. Mild hyperinflation again seen. Heart size is normal and central vasc ulature is within normal limits. Sequelae of CABG and surgical clips in the right axilla again seen. No pleural effusion or pneumothorax seen. No acute bony finding noted. IMPRESSION: No acute cardiopulmonary process.
[2023-03-15 20:44] LABS: Absolute Lymphocytes (CBC) 1.6 K/uL (0.7-4.9); Hematocrit 40.4 % (36.0-45.0); MCV 84.8 fL (80-100); MPV 7.4 fL (7.6-11.3); Platelets 250 thou/uL (152-406); RBC Red Blood Cell Count 4.76 M/uL (3.86-4.86)
[2023-03-15 21:08] LABS: Albumin 2.9 g/dL (3.4-5.0); Bilirubin Direct 0.1 mg/dL (0-0.2); Bilirubin Indirect, Calculated 0.9 mg/dL (0.2-0.8); Protein, Total 7.2 g/dL (6.4-8.2)
[2023-03-15 21:10] LABS: Magnesium 2.1 mg/dL (1.6-2.4); Potassium 3.7 mEq/L (3.5-5.1)
--- NOTE | 2023-03-15 23:26 | EDPHYS ---
Physician Documentation [facility] Name: Chantell Castillo Age: 68 yrs Sex: Female : 1955 Arrival Date: 03/15/2023 Time: 15:30 Bed 9 Private MD: ED Physician Tristan Friedman HPI: 03/15 18:16 This 68 yrs old Female presents to ER via Ambulatory with complaints of Shortness Of sb4 Breath, Cough. 19:04 patient states she has been having sob x 1 month. has been on various steroids and abx sb4 without significant improvement. went to her PCP today who sent her to ED due to her sob and wheezing. denies any chest pain. endorses cough. has albuterol at home but states it just makes her jittery. Historical: - Allergies: 15:52 NKDA; bp - PMHx: 15:52 CHF; COPD; GERD; Hypertension; bp - PSHx: 15:52 AAA repair; bp - Immunization history:: Adult Immunizations unknown. - Social history:: Smoking status: unknown. ROS: 19:06 Constitutional: Negative for fever, chills, and weight loss, sb4 19:06 Respiratory: Positive for cough, dyspnea on exertion, wheezing, 19:06 All other systems are negative, Exam: 19:06 Constitutional: This is a well developed, well nourished patient who is awake, alert, sb4 and in no acute distress. Head/Face: Normocephalic, atraumatic. Eyes: Extra-ocular motions intact. Periorbital areas with no swelling, redness, or edema. ENT: Mucous membranes moist. Cardiovascular: Regular rate and rhythm with a normal S1 and S2. Abdomen/GI: Soft, non-tender, no distension. Skin: Warm, dry with normal turgor. Normal color with no rashes, no lesions, and no evidence of cellulitis. MS/ Extremity: Pulses equal, no cyanosis. Neurovascular intact. Full, normal range of motion. Neuro: Awake and alert, GCS 15, oriented to person, place, time, and situation. Motor strength 5/5 in all extremities. Sensory grossly intact. 19:06 Respiratory: audible expiratory wheezing, Vital Signs: 15:51 BP 144 / 89; Pulse 81; Resp 20; Temp 97.9; Pulse Ox 98% ; bp 19:44 BP 181 / 82; Pulse 72; Resp 20; Pulse Ox 100% on R/A; tl4 21:30 BP 135 / 96; Pulse 69; Resp 18; Pulse Ox 98% on R/A; tl4 22:30 BP 125 / 90; Pulse 70; Resp 20; Pulse Ox 97% on R/A; tl4 22:30 BP 107 / 91; Pulse 74; Resp 18; Pulse Ox 98% on R/A; tl4 Bernardo Coma Score: 19:44 Eye Response: spontaneous(4). Motor Response: obeys commands(6). Verbal Response: tl4 oriented(5). Total: 15. MDM: 15:57 Patient medically screened. sb4 19:55 Data reviewed: nurses notes. gb1 20:02 Differential diagnosis: Anxiety Reaction asthma, Bronchitis CHF exacerbation, Chronic sb4 Obstructive Pulmonary Disease pneumonia, pulmonary edema, reactive airway disease. 20:02 ED course: patient still with significant wheezing after breathing treatment, will sb4 order additional labs and imaging. 21:31 Transition of care: After a detail discussion of the patient's case, care is sb4 transferred to Tristan Friedman MD. 23:32 ED course: . sp4 03/15 17:08 Order name: COVID-19 SARS RT PCR; Complete Time: 18:56 4 03/15 20:00 Order name: BMP; Complete Time: 21:15 sb4 03/15 20:00 Order name: CBC with Diff; Complete Time: 20:48 sb4 03/15 20:00 Order name: Hepatic Function; Complete Time: 21:15 sb4 03/15 20:00 Order name: Lipase; Complete Time: 21:15 sb4 03/15 20:00 Order name: Magnesium; Complete Time: 21:15 sb4 03/15 20:00 Order name: NT PRO-BNP; Complete Time: 21:15 sb4 03/15 15:53 Order name: Chest Pa And Lat (2 Views) XRAY; Complete Time: 16:34 bp 03/15 20:00 Order name: Cardiac monitoring; Complete Time: 20:20 sb4 03/15 20:00 Order name: IV Saline Lock; Complete Time: 20:30 sb4 03/15 20:00 Order name: Labs collected and sent; Complete Time: 20:30 sb4 03/15 20:00 Order name: O2 Per Protocol; Complete Time: 20:20 sb4 03/15 20:00 Order name: O2 Sat Monitoring; Complete Time: 20:20 sb4 Administered Medications: 19:34 Drug: Dexamethasone IM 10 mg IM once Route: IM; Site: left ventrogluteal; tl4 19:52 Follow up: Response: No adverse reaction tl4 19:35 Drug: DuoNeb Nebulize (3:1) (2.5 mg - 0.5 mg) 3 ml Nebulizer once Route: Nebulizer; tl4 19:52 Follow up: Response: No adverse reaction tl4 21:09 Drug: Ativan IVP 1 mg IVP once Route: IVP; Site: right antecubital; vc1 22:41 Follow up: Response: No adverse reaction; Anxiety decreased tl4 21:09 Drug: Magnesium Sulfate IVPB 1 grams IVPB once over 1 hrs Route: IVPB; Infused Over: 1 vc1 hrs; Site: right antecubital; 22:41 Follow up: Response: No adverse reaction; IV Status: Completed infusion tl4 22:41 Drug: Levalbuterol Inhalation 1.25 mg Inhalation once Route: Inhalation; tl4 23:11 Follow up: Response: No adverse reaction tl4 23:21 Drug: Promethazine PO 25 mg PO once Route: PO; tl4 23:59 Follow up: Response: No adverse reaction tl4 23:22 Drug: Albuterol Inhalation 2.5 mg Inhalation once Route: Inhalation; tl4 23:59 Follow up: Response: Wheezing diminished tl4 23:22 Drug: Ipratropium Inhalation Aerosol 0.5 mg Inhalation once Route: Inhalation; tl4 23:59 Follow up: Response: Wheezing diminished tl4 23:22 Drug: Acetaminophen-Codeine PO (300 mg-30 mg) 2 tabs PO once; RASS on ADMIN: Combtv4, tl4 Very Agttd3, Agttd2, Rstlss1, AlertClm0, Drwsy-1, Lt Sdtn-2, Mod Sdtn-3, Dp Sdtn-4, UnArsble-5 Route: PO; 23:59 Follow up: Response: No adverse reaction tl4 Disposition: 19:55 Co-signature as Attending Physician, Iva Ley MD I agree with the assessment and gb1 plan of care. I reviewed the patient's care provided by the Advanced Practice Provider and agree with the diagnosis and treatment plan. Disposition Summary: 03/15/23 23:25 Discharge Ordered Notes: Location: Home sp4 Problem: new sp4 Symptoms: have improved sp4 Condition: Stable sp4 Diagnosis - SARS-associated coronavirus as the cause of diseases classified elsewhere sp4 - Acute bronchitis, unspecified sp4 Followup: sb4 - With: Emergency Department - When: As needed - Reason: Trouble breathing, Worsening of condition Discharge Instructions: - Discharge Summary Sheet sb4 - COVID-19: What to Do If You Are Sick - [facility] (05/27/2021) sb4 Forms: - Patient Portal Instructions sp4 Prescriptions: - Paxlovid 300 mg (150 mg x 2)-100 mg Oral Tablet, Dose Pack - take 1 dose pack ORAL route per package directions; 1 Pack; Refills: 0, Product sb4 Selection Permitted - budesonide 32 mcg/actuation Nasal spray, non-aerosol - spray 2 spray INTRANASAL route daily administer into each nostril; 1 sb4 Applicator; Refills: 0, Product Selection Permitted - Tessalon Perles 100 mg Oral Capsule - take 1 capsule ORAL route every 8 hours As needed; 15 capsule; Refills: 0, sb4 Product Selection Permitted - dextromethorphan-guaifenesin 20-400 mg Oral tablet - take 1 tablet ORAL route every 6 hours PRN cough; 60 tablet; Refills: 0, sp4 Product Selection Permitted - Albuterol Sulfate 2.5 mg /3 mL (0.083 %) Inhalation Solution for Nebulization - inhale 1 unit NEBULIZATION route every 4 hours As needed Dispense with sp4 Nebulizer and adult mask, Dispense 50 vials or two boxes, Use in nebulized form every 4 hours PRN shortness of breath; 50 unit; Refills: 0, Product Selection Permitted Signatures: Dispatcher [employer] EDMS Eddie Mtz RN Erin Charles RN RN vc1 Margie Marie PA-C PA-C sb4 Tristan Friedman MD MD sp4 Iva Ley MD MD gb1 Logdahl, Silvestre tl4 Corrections: (The following items were deleted from the chart) 23:22 20:01 Thorax W/ Con+CT.RAD.BRZ ordered. EDMS EDMS
--- NOTE | 2023-03-15 23:26 | ER ---
Nurse's Notes [facility] Name: Chantell Castillo Age: 68 yrs Sex: Female : 1955 Arrival Date: 03/15/2023 Time: 15:30 Bed 9 Private MD: Diagnosis: SARS-associated coronavirus as the cause of diseases classified elsewhere;Acute bronchitis, unspecified Presentation: 03/15 15:51 Chief complaint: Patient states: SENT FROM DR HOFFMANN FOR WHEEZING, R/O PNEUMONIA. bp Coronavirus screen: At this time, the client does not indicate any symptoms associated with coronavirus-19. Ebola Screen: No symptoms or risks identified at this time. Initial Sepsis Screen: Does the patient meet any 2 criteria? No. Patient's initial sepsis screen is negative. Does the patient have a suspected source of infection? No. Patient's initial sepsis screen is negative. Risk Assessment: Do you want to hurt yourself or someone else? Patient reports no desire to harm self or others. Onset of symptoms is unknown. 15:51 Method Of Arrival: Ambulatory bp 15:51 Acuity: WES 3 bp Triage Assessment: 15:52 General: Appears in no apparent distress. Behavior is cooperative, appropriate for age, bp anxious. Pain: Denies pain. Respiratory: Reports shortness of breath cough that is Breath sounds with wheezes bilaterally. Onset: The symptoms/episode began/occurred at an unknown time. the patient has moderate shortness of breath. Historical: - Allergies: 15:52 NKDA; bp - PMHx: 15:52 CHF; COPD; GERD; Hypertension; bp - PSHx: 15:52 AAA repair; bp - Immunization history:: Adult Immunizations unknown. - Social history:: Smoking status: unknown. Screenin:45 [facility] ED Fall Risk Assessment (Adult) History of falling in the last 3 months, tl4 including since admission No falls in past 3 months (0 pts) Confusion or Disorientation No (0 pts) Intoxicated or Sedated No (0 pts) Impaired Gait No (0 pts) Mobility Assist Device Used No (0 pt) Altered Elimination No (0 pt) Score/Fall Risk Level 0 - 2 = Low Risk. [facility] ED Fall Risk Assessment (Adult). Abuse screen: Denies threats or abuse. Denies injuries from another. Nutritional screening: No deficits noted. Tuberculosis screening: No symptoms or risk factors identified. Assessment: 19:44 Reassessment: No changes from previously documented assessment. Patient and/or family tl4 updated on plan of care and expected duration. Pain level reassessed. Patient is alert, oriented x 3, equal unlabored respirations, skin warm/dry/pink. Cardiovascular: Rhythm is regular. Respiratory: Airway is patent Respiratory effort is even, unlabored. Vital Signs: 15:51 BP 144 / 89; Pulse 81; Resp 20; Temp 97.9; Pulse Ox 98% ; bp 19:44 BP 181 / 82; Pulse 72; Resp 20; Pulse Ox 100% on R/A; tl4 21:30 BP 135 / 96; Pulse 69; Resp 18; Pulse Ox 98% on R/A; tl4 22:30 BP 125 / 90; Pulse 70; Resp 20; Pulse Ox 97% on R/A; tl4 22:30 BP 107 / 91; Pulse 74; Resp 18; Pulse Ox 98% on R/A; tl4 Vitals: 19:44 Cardiac Rhythm Assessment Regular Sinus rhythm. tl4 Bernardo Coma Score: 19:44 Eye Response: spontaneous(4). Motor Response: obeys commands(6). Verbal Response: tl4 oriented(5). Total: 15. ED Course: 15:30 Patient arrived in ED. rg4 15:52 Triage completed. bp 15:52 Arm band placed on. bp 15:57 Margie Marie PA-C is PHCP. sb4 15:57 Iva Ley MD is Attending Physician. sb4 16:14 Chest Pa And Lat (2 Views) XRAY In Process Unspecified. EDMS 19:02 Silvestre Al is Primary Nurse. tl4 19:46 Patient has correct armband on for positive identification. Bed in low position. Call tl4 light in reach. Side rails up X2. Adult w/ patient. Provided Education on: ED process. 19:46 No provider procedures requiring assistance completed. Patient did not have IV access tl4 during this emergency room visit. 20:07 Radiology exam delayed due to lab results not completed at this time. (BUN/Creatinine) nj IV insertion attempt and/or patient not having appropriate IV at this time. 20:30 Inserted saline lock: 20 gauge in right antecubital area, using aseptic technique. vk Blood collected. 20:31 BMP Sent. vk 20:31 CBC with Diff Sent. vk 20:31 Hepatic Function Sent. vk 20:31 Lipase Sent. vk 20:31 Magnesium Sent. vk 20:31 NT PRO-BNP Sent. vk 21:32 Attending Physician role handed off by Iva Ley MD sp4 21:32 Tristan Friedman MD is Attending Physician. sp4 23:58 IV discontinued, intact, bleeding controlled, No redness/swelling at site. Pressure tl4 dressing applied. Administered Medications: 19:34 Drug: Dexamethasone IM 10 mg IM once Route: IM; Site: left ventrogluteal; tl4 19:52 Follow up: Response: No adverse reaction tl4 19:35 Drug: DuoNeb Nebulize (3:1) (2.5 mg - 0.5 mg) 3 ml Nebulizer once Route: Nebulizer; tl4 19:52 Follow up: Response: No adverse reaction tl4 21:09 Drug: Ativan IVP 1 mg IVP once Route: IVP; Site: right antecubital; vc1 22:41 Follow up: Response: No adverse reaction; Anxiety decreased tl4 21:09 Drug: Magnesium Sulfate IVPB 1 grams IVPB once over 1 hrs Route: IVPB; Infused Over: 1 vc1 hrs; Site: right antecubital; 22:41 Follow up: Response: No adverse reaction; IV Status: Completed infusion tl4 22:41 Drug: Levalbuterol Inhalation 1.25 mg Inhalation once Route: Inhalation; tl4 23:11 Follow up: Response: No adverse reaction tl4 23:21 Drug: Promethazine PO 25 mg PO once Route: PO; tl4 23:59 Follow up: Response: No adverse reaction tl4 23:22 Drug: Albuterol Inhalation 2.5 mg Inhalation once Route: Inhalation; tl4 23:59 Follow up: Response: Wheezing diminished tl4 23:22 Drug: Ipratropium Inhalation Aerosol 0.5 mg Inhalation once Route: Inhalation; tl4 23:59 Follow up: Response: Wheezing diminished tl4 23:22 Drug: Acetaminophen-Codeine PO (300 mg-30 mg) 2 tabs PO once; RASS on ADMIN: Combtv4, tl4 Very Agttd3, Agttd2, Rstlss1, AlertClm0, Drwsy-1, Lt Sdtn-2, Mod Sdtn-3, Dp Sdtn-4, UnArsble-5 Route: PO; 23:59 Follow up: Response: No adverse reaction tl4 Medication: 19:46 VIS not applicable for this client. tl4 Outcome: 23:25 Discharge ordered by . sp4 23:58 Discharged to home ambulatory, with family, tl4 23:58 Condition: stable 23:58 Discharge instructions given to patient, family, Instructed on discharge instructions, follow up and referral plans. medication usage, Demonstrated understanding of instructions, follow-up care, medications, 03/16 00:00 Patient left the ED. tl4 Signatures: Dispatcher [employer] EDMS Griselda Burton rg4 Maurice Lee Brian RN RN bp Erin Clark RN RN vc1 Margie Marie PA-C PAYesika steven4 Tristan Friedman MD MD sp4 Logdahl, Silvestre tl4 Loan Alvarado Corrections: (The following items were deleted from the chart) 03/15 15:54 15:51 BP 144 / 89; Pulse 104bpm; Resp 20bpm; Pulse Ox 98%; Temp 97.9F; bp bp
[2023-03-16 03:55] VITALS: TEMP 97.9; O2SAT 98
[2023-03-16 04:19] VITALS: BP 107/91
== END ==
LOC: SUPCPDRO 15:30 → ER 15:30
DX: U07.1 COVID-19 (principal); J20.9 Acute bronchitis, unspecified; I10 Essential (primary) hypertension; J44.9 Chronic obstructive pulmonary disease, unspecified; I50.9 Heart failure, unspecified
CPT/HCPCS: 96365; 85025; 80048; 36415; 83735; 80076; 83690; 83880; 87635; 71046; 94640; 96375; 96372; 99285; 96366; Q0169; J3475; J7614; J7613 ×2; J7644 ×2; J1100

== ENCOUNTER 2024-07-24 21:39 | Emergency (ER) | payer OTHER ==
[2024-07-25] MEDS ORDERED: LIDOCAINE 1% 20 ML MDV ONE (00:23)
[2024-07-25] MEDS ORDERED: AMOX/K CLAV 875 MG TAB ONE (00:57)
[2024-07-25] MEDS ORDERED: IBUPROFEN 400 MG TAB ONE (00:58)
[2024-07-25] MEDS ORDERED: ONDANSETRON 4 MG (ODT) TAB ONE (00:58)
[2024-07-25] MEDS ORDERED: metroNIDAZOLE 500 MG TABLET ONE (00:58)
--- NOTE | 2024-07-25 01:07 | EDPHYS ---
Physician Documentation [facility] Name: Chantell Castillo Age: 69 yrs Sex: Female : 1955 Arrival Date: 07/24/2024 Time: 21:39 Bed 22 Private MD: ED Physician Tristan Friedman HPI: 07/24 21:45 This 69 yrs old Female presents to ER via Unassigned with complaints of Dog sp4 Bite. 07/25 19:31 69-year-old female presents with dog bite to the right hand. Patient has multiple fang sp4 dillard to the right hand associated with moderate to severe pain around the right fifth meta caudal pole and index finger metacarpal. There is an L-shaped laceration 1.5 cm long to the right base of the thumb. Patient reports the dog is a [place] Island[place] Pat who is vaccinated for rabies. Patient states is her neighbors dog.. Historical: - Allergies: 07/24 22:42 NKDA; br2 - PMHx: 22:42 CHF; COPD; GERD; Hypertension; br2 - PSHx: 22:42 AAA repair; br2 - Immunization history:: Adult Immunizations not up to date, Last tetanus immunization: unknown. - Infectious Disease History:: Denies. - Social history:: Smoking status: Patient reports the use of cigarette tobacco products, smokes one-half pack cigarettes per day, Patient uses Patient/guardian denies using alcohol, street drugs. - Family history:: not pertinent. ROS: 07/25 19:31 Constitutional: Negative for fever, chills, and weight loss, positive dog bite with sp4 laceration to the right hand. Positive right hand pain. All other systems are negative, Exam: 19:31 Constitutional: This is a well developed, well nourished patient who is awake, alert, sp4 and in no acute distress. Head/Face: Normocephalic, atraumatic. Eyes: Pupils equal round and reactive to light, extra-ocular motions intact. Lids and lashes normal. Conjunctiva and sclera are not injected. Cornea within normal limits. Periorbital areas with no swelling, redness, or edema. ENT: Nares patent. No nasal discharge, no septal abnormalities noted. Tympanic membranes are normal and external auditory canals are clear. Oropharynx with no redness, swelling, or masses, exudates, or evidence of obstruction, uvula midline. Mucous membranes moist. Neck: Trachea midline, no thyromegaly or masses palpated, and no cervical lymphadenopathy. Supple, full range of motion without nuchal rigidity, or vertebral point tenderness. Chest/axilla: Normal chest wall appearance and motion. Nontender with no deformity. No lesions are appreciated. Cardiovascular: Regular rate and rhythm with a normal S1 and S2. No gallops, murmurs, or rubs. Normal PMI, no JVD. No pulse deficits. Respiratory: Lungs have equal breath sounds bilaterally, clear to auscultation and percussion. No rales, rhonchi or wheezes noted. No increased work of breathing, no retractions or nasal flaring. Abdomen/GI: Soft, with normal bowel sounds. No distension or tympany. No guarding or rebound. No evidence of tenderness throughout. Back: No spinal tenderness. No costovertebral tenderness. Skin: Warm, dry with normal turgor. Normal color with no rashes, positive acute dog bite to the right hand with several finger dillard an L-shaped laceration to the right hand at the base of the right thumb. MS/ Extremity: Pulses equal, no cyanosis. Neurovascular intact. Full, normal range of motion. Positive right hand mild swelling pain tenderness to palpation particularly at the right fifth metacarpal. Several finger dillard from the recent dog bite. Neuro: Awake and alert, GCS 15, oriented to person, place, time, and situation. Cranial nerves II-XII grossly intact. Motor strength 5/5 in all extremities. Sensory grossly intact. Psych: Awake, alert, with orientation to person, place and time. Behavior, mood, and affect are within normal limits Vital Signs: 07/24 22:38 BP 169 / 88; Pulse 73; Resp 18; Temp 97.2; Pulse Ox 96% ; Weight 81.19 kg; Height 5 ft. br2 2 in. ; Pain 8/10; 22:38 Body Mass Index 32.74 (81.19 kg, 157.48 cm) br2 22:38 Pain Scale: Adult br2 [place] Coma Score: 07/25 19:31 Eye Response: spontaneous(4). Motor Response: obeys commands(6). Verbal Response: sp4 oriented(5). Total: 15. Procedures: 19:31 Splinting: Splint applied to right wrist, right hand and palmar aspect of right forearm sp4 using Orthoglass splint, Right hand wrist and forearm ulnar gutter splint with Ortho-Glass. Generous cast padding applied.. applied by myself. Examined by me, post splint application: neurovascular intact, 2+ distal pulses palpable, brisk capillary refill noted, Patient tolerated well, Arm sling was provided for comfort.. Wound care with extensive irrigation of the right hand dog bites.. Laceration: 19:31 Wound Repair of 1.5cm ( 0.6in ) subcutaneous laceration to Right first web space sp4 -L-shaped laceration 1.5 cm long from recent dog bite. No active bleeding. Irregularly shaped.. Moderate contamination.. Distal neuro/vascular/tendon intact. Anesthesia: Wound infiltrated with 10 mls of 1% lidocaine. Wound prep: Moderate cleansing by me, Copious irrigation. Skin closed with 4 4-0 Silk using interrupted sutures and sterile technique. Dressed with 4x4's, Kerlix, non-adherent dressing. Patient tolerated well. MDM: 07/24 21:47 Medical Screening Exam initiated sp4 07/25 00:20 ED course: XR HAND 3 OR MORE VIEWS RIGHT INDICATION: Dog bite COMPARISON: None sp4 TECHNIQUE: 3 views of the right hand FINDINGS: BONES: Cortical irregularity at the fifth metatarsal carpal on the oblique projection, suspicious for nondisplaced fracture. No joint dislocation or subluxation. Evaluation of second and third proximal phalanxes is limited by the presence of rings. SOFT TISSUE: Mild soft tissue swelling of the hand.. OTHER: None. IMPRESSION: Cortical irregularity at the fifth metatarsal carpal on the oblique projection, suspicious for nondisplaced fracture. 01:04 ED course: XR HAND 3 OR MORE VIEWS RIGHT INDICATION: Dog bite COMPARISON: None sp4 TECHNIQUE: 3 views of the right hand FINDINGS: BONES: Cortical irregularity at the fifth metatarsal carpal on the oblique projection, suspicious for nondisplaced fracture. No joint dislocation or subluxation. Evaluation of second and third proximal phalanxes is limited by the presence of rings. SOFT TISSUE: Mild soft tissue swelling of the hand.. OTHER: None. IMPRESSION: Cortical irregularity at the fifth metatarsal carpal on the oblique projection, suspicious for nondisplaced fracture. 19:35 Differential diagnosis: superficial laceration, tendon injury, vascular injury, sp4 cellulitis. Rabies Status: Rabies immunization is not indicated. Data reviewed: vital signs, nurses notes, radiologic studies, plain films. Consideration of Admission/Observation Escalation of care including admission/observation considered. ED course: Patient was prescribed doxycycline and Flagyl secondary to open fracture of the right fifth metacarpal. Patient was medicated here in ER. Patient given associated pain medication as well. Advised to visit orthopedist. Referral provided to Dr. Garcia Cohen at the local orthopedic clinic. Patient has acute dog bite of the right hand with open fracture of the right fifth metacarpal.. 07/24 22:12 Order name: Hand Right 3 View XRAY sp4 07/24 22:12 Order name: Wound Care: irrigate wound 4 07/24 22:13 Order name: Dressing - Wound sp4 07/24 22:13 Order name: Gloves, Sterile sp4 07/24 22:13 Order name: Setup Suture Tray 4 07/25 01:10 Order name: Sling 4 07/25 01:10 Order name: Splint - Ulnar Gutter: Right hand and wrist ulnar gutter applied by MD; sp4 Complete Time: 01:21 Administered Medications: 01:09 Drug: metroNIDAZOLE PO 500 mg PO once Route: PO; kl 01:10 Drug: Ibuprofen PO 800 mg PO once Route: PO; kl 01:10 Drug: Ondansetron PO 4 mg PO once Route: PO; kl 01:10 Drug: Amoxicillin-Clavulanate PO 875 mg PO once Route: PO; kl 01:21 Drug: HYDROcodone-acetaminophen PO 5 mg-325 mg 2 tabs PO once Route: PO; kl 01:21 Drug: Lidocaine Infiltration (1 %) 20 ml 20 ml Infiltration once; to bedside {Note: per avelino Bhardwaj} Volume: 20 ml; Route: Infiltration; 01:21 Drug: Boostrix Tdap IM 0.5 ml IM once; as a single dose Route: IM; Site: left deltoid; kl Disposition: 19:35 Chart complete. sp4 Disposition Summary: 07/25/24 01:07 Discharge Ordered Notes: Location: Home sp4 Problem: new sp4 Symptoms: have improved sp4 Condition: Stable sp4 Diagnosis - Bitten by dog sp4 - Acute dog bite to right hand, acute open fracture of the fifth metacarpal without sp4 displacement, acute right hand laceration secondary to the dog bite Followup: sp4 - With: Private Physician - When: 7 - 10 days - Reason: Recheck today's complaints Followup: sp4 - With: Garcia Cohen MD - When: 7 - 10 days - Reason: Recheck today's complaints Discharge Instructions: - Discharge Summary Sheet sp4 - Animal Bite, Adult, Akci-uc-Enwi sp4 Forms: - Patient Portal Instructions sp4 Prescriptions: - acetaminophen-codeine 300-60 mg Oral tablet - take 1 tablet ORAL route every 8 hours as needed for pain; 20 tablet; Refills: sp4 0, Product Selection Permitted - Flagyl 500 mg Oral tablet - take 1 tablet ORAL route every 12 hours for 14 days; 28 tablet; Refills: 0, sp4 Product Selection Permitted - Ibuprofen 600 mg Oral tablet - take 1 tablet ORAL route every 6 hours As needed take with food; 50 tablet; sp4 Refills: 0, Product Selection Permitted - Doxycycline Hyclate 100 mg Oral tablet - take 1 tablet ORAL route every 12 hours for 14 days; 28 tablet; Refills: 0, sp4 Product Selection Permitted Signatures: Dispatcher [employer] Riri Roberts, RN RN Tristan Beaver MD MD sp4 Nati Townsend RN RN br2
--- NOTE | 2024-07-25 01:07 | ER ---
Nurse's Notes [facility] Name: Chantell Castillo Age: 69 yrs Sex: Female : 1955 Arrival Date: 07/24/2024 Time: 21:39 Bed 22 Private MD: Diagnosis: Bitten by dog;Acute dog bite to right hand, acute open fracture of the fifth metacarpal without displacement, acute right hand laceration secondary to the dog bite Presentation: 07/24 22:38 Chief complaint: Patient states: DOG FIGHT AND SHE TRIED TO BREAK UP DOGS. MULTIPLE br2 PUNCTURES TO RIGHT HAND . THIS OCCURRED IN [address] [place] [address]. Coronavirus screen: Client denies travel out of the [place] in the last 14 days. Ebola Screen: Patient denies exposure to infectious person. Initial Sepsis Screen: Does the patient meet any 2 criteria? No. Patient's initial sepsis screen is negative. Does the patient have a suspected source of infection? No. Patient's initial sepsis screen is negative. Risk Assessment: Do you want to hurt yourself or someone else? Patient reports no desire to harm self or others. Onset of symptoms was July 24, 2024 at 20:00. 22:38 Method Of Arrival: Ambulatory br2 22:38 Acuity: WES 5 br2 Triage Assessment: 22:42 Bite description: bite sustained to right hand is PUNCTURES by a dog, animal br2 information: vaccination(s) is current. Historical: - Allergies: 22:42 NKDA; br2 - PMHx: 22:42 CHF; COPD; GERD; Hypertension; br2 - PSHx: 22:42 AAA repair; br2 - Immunization history:: Adult Immunizations not up to date, Last tetanus immunization: unknown. - Infectious Disease History:: Denies. - Social history:: Smoking status: Patient reports the use of cigarette tobacco products, smokes one-half pack cigarettes per day, Patient uses Patient/guardian denies using alcohol, street drugs. - Family history:: not pertinent. Screenin/20 01:28 [facility] ED Fall Risk Assessment (Adult) History of falling in the last 3 months, kl including since admission Yes- single mechanical fall (1 pt) Confusion or Disorientation No (0 pts) Intoxicated or Sedated No (0 pts) Impaired Gait No (0 pts) Mobility Assist Device Used No (0 pt) Altered Elimination No (0 pt) Score/Fall Risk Level 0 - 2 = Low Risk Oriented to surroundings, Maintained a safe environment. Abuse screen: Denies threats or abuse. Nutritional screening: No deficits noted. Tuberculosis screening: No symptoms or risk factors identified. Assessment: 01:26 Pain: Complains of pain in right hand Pain currently is 6 out of 10 on a pain scale. kl Neuro: No deficits noted. Cardiovascular: No deficits noted. Derm: Musculoskeletal: splint in place neurovasc checks to right arm WNL. Vital Signs: 07/24 22:38 BP 169 / 88; Pulse 73; Resp 18; Temp 97.2; Pulse Ox 96% ; Weight 81.19 kg; Height 5 ft. br2 2 in. ; Pain 8/10; 22:38 Body Mass Index 32.74 (81.19 kg, 157.48 cm) br2 22:38 Pain Scale: Adult br2 Ogden Coma Score: 07/25 19:31 Eye Response: spontaneous(4). Motor Response: obeys commands(6). Verbal Response: sp4 oriented(5). Total: 15. ED Course: 07/24 21:43 Patient arrived in ED. gm2 21:45 Tristan Friedman MD is Attending Physician. sp4 22:41 Triage completed. br2 22:42 Arm band placed on right wrist. br2 22:56 Hand Right 3 View XRAY In Process Unspecified. EDMS 07/25 01:06 Garcia Cohen MD is Referral Physician. sp4 01:28 No provider procedures requiring assistance completed. Patient did not have IV access kl during this emergency room visit. Administered Medications: 01:09 Drug: metroNIDAZOLE PO 500 mg PO once Route: PO; kl 01:10 Drug: Ibuprofen PO 800 mg PO once Route: PO; kl 01:10 Drug: Ondansetron PO 4 mg PO once Route: PO; kl 01:10 Drug: Amoxicillin-Clavulanate PO 875 mg PO once Route: PO; kl :21 Drug: HYDROcodone-acetaminophen PO 5 mg-325 mg 2 tabs PO once Route: PO; kl 01:21 Drug: Lidocaine Infiltration (1 %) 20 ml 20 ml Infiltration once; to bedside {Note: per avelino Bhardwaj} Volume: 20 ml; Route: Infiltration; 01:21 Drug: Boostrix Tdap IM 0.5 ml IM once; as a single dose Route: IM; Site: left deltoid; avelino Medication: 01:29 Vaccine Information Statement (VIS) provided today. Questions and/or concerns avelino addressed. VIS edition date: October 11, 2020. Outcome: 01:07 Discharge ordered by MD. martinez 01:28 Discharged to home via ambulance, avelino :28 Condition: improved 01:28 Discharge instructions given to patient, Instructed on discharge instructions, follow up and referral plans. medication usage, wound care, Demonstrated understanding of instructions, follow-up care, medications, wound care, splint care, Prescriptions given X 3, 01:30 Patient left the ED. avelino Signatures: Dispatcher [employer] EDRiri Martinez, RN RN Tristan Beaver MD MD sp4 Kya Orozco 2 Nati Townsend RN RN br2
[2024-07-25] MEDS ORDERED: HYDROCODONE/APAP 5/325 MG TAB ONE (01:10)
[2024-07-25] MEDS ORDERED: TDAP (DIPHTH,PERTUSS(ACELL),TET VAC) 0.5 ML VIAL IMVAC ONE (01:13)
[2024-07-25 01:48] VITALS: BP 169/88; TEMP 97.2; O2SAT 96
== END 2024-07-25 01:30 | disposition home or self-care (01) ==
LOC: ER 21:39
PROC: 2W3CX1Z Immobilization of Right Lower Arm using Splint (ICD-10-PCS; principal; 2024-07-25)
DX: S62.306B Unspecified fracture of fifth metacarpal bone, right hand, initial encounter for open fracture (principal); W54.0XXA Bitten by dog, initial encounter; Z23 Encounter for immunization; F17.210 Nicotine dependence, cigarettes, uncomplicated
CPT/HCPCS: 73130; 90715; 12001; 29125; Q0162; J2003